=== PATIENT | male | born 1960 | race American Indian/Alaskan Native ===

== ENCOUNTER 2019-03-29 16:03 | Inpatient (IN) | payer OTHER ==
--- NOTE | 2019-03-29 16:41 | Emergency Department Report ---
Blank Doc - Documentation Documentation: This is a 59-year-old male that presents with SOB and bilateral leg swellings. Denies any CP. This initial assessment/diagnostic orders/clinical plan/treatment(s) is/are subject to change based on patient's health status, clinical progression and re- assessment by fellow clinical providers in the ED. Further treatment and workup at subsequent clinical providers discretion. Patient/guardians urged not to elope from the ED as their condition may be serious if not clinically assessed and managed. Initial orders include: 1- Patient sent to MAIN for further evaluation and treatment 2- labs 3- EKG 4- CXR
[2019-03-29] MEDS ORDERED: LASIX IV ONE (17:19)
[2019-03-29] MEDS ORDERED: ASPIRIN PO ONE (17:19)
--- NOTE | 2019-03-29 17:24 | Emergency Department Report ---
ED Shortness of Breath HPI - General Chief Complaint: Dyspnea/Respdistress Stated Complaint: ROMANA/SOB Time Seen by Provider: 03/29/19 16:40 Source: patient, EMS, RN notes reviewed, old records reviewed Mode of arrival: Wheelchair Limitations: No Limitations - History of Present Illness Initial Comments: 59-year-old male with a past medical history hypertension not on meds 1 year and "diet-controlled diabetes" presents to the hospital with complaints of shortness of breath intermittently for 90 days and worsening today. Patient also had progressing worsening leg, penile and scrotal edema. He denies chest pain, productive cough or fever. Occasional nonproductive cough reported. He complains 8/10 bilateral knee pain without reports of fall or trauma. He denies a past medical history of CHF. Denies smoking history. Pt drinks alcohol on occa PMD: None - Related Data Previous Rx's Medication Instructions Recorded Last Taken Type Erythromycin [Erythromycin Ophth 0.5 inch OS QID #1 tube 08/27/13 Unknown Rx Oint] Allergies Allergy/AdvReac Type Severity Reaction Status Date / Time No Known Allergies Allergy Verified 03/29/19 16:43 ED Review of Systems ROS: Stated complaint: ROMANA/SOB Other details as noted in HPI Comment: All other systems reviewed and negative ED Past Medical Hx - Past Medical History Previous Medical History?: Yes Hx Hypertension: Yes (no meds) Hx Congestive Heart Failure: Yes Hx Diabetes: Yes (diet-controlled) - Surgical History Past Surgical History?: Yes Additional Surgical History: Left thumb, hernia repair - Social History Smoking Status: Never Smoker Substance Use Type: Alcohol - Medications Home Medications: Home Medications Medication Instructions Recorded Confirmed Last Taken Type Erythromycin [Erythromycin Ophth 0.5 inch OS QID #1 tube 08/27/13 Unknown Rx Oint] ED Physical Exam - General Limitations: No Limitations - Other Other exam information: General: Moderate respiratory distress Head exam: Atraumatic, normocephalic Eyes exam: icteric sclera ENT: Moist mucous membrane Neck exam: Normal inspection Respiratory exam: Tachypnea, breathlessness when speaking, bilateral crackles Cardiovascular: Tachycardic regular rhythm, systolic murmur Abdomen: Soft, nondistended, and nontender, with normal bowel sounds, no rebound, or guarding Extremity: Full range of motion, significant bilateral pitting leg edema extending all the way up to the scrotum Back: Normal Inspection, full range of motion, no tenderness Neurologic: Alert, oriented x3, cranial nerves intact, no motor or sensory deficit Psychiatric: normal affect, normal mood Skin: Warm, dry, intact ED Course Vital Signs 03/29/19 03/29/19 03/29/19 16:41 17:38 18:00 Temperature 97.9 F Pulse Rate 129 H 119 H 117 H Respiratory 24 36 H 23 Rate Blood Pressure 206/128 174/24 Blood Pressure 175/126 [Right] O2 Sat by Pulse 97 100 99 Oximetry 03/29/19 18:50 Temperature Pulse Rate 121 H Respiratory 39 H Rate Blood Pressure 188/30 Blood Pressure [Right] O2 Sat by Pulse 99 Oximetry - Reevaluation(s) Reevaluation #1: 03/29/19 17:47 pt placed on bipap support and is breathing more comfortable - Consultations Consultation #1: 03/29/19 18:[address] Martini ordered Card consult with Dr Hsu requested 03/29/19 18:38 case d/w Dr Hsu, informed of + trop, no cp, no stemi on ekg, rec heparin drip ED Medical Decision Making - Lab Data Result diagrams: 03/29/19 16:56 03/29/19 16:56 - EKG Data -: EKG Interpreted by Me EKG shows normal: sinus rhythm (vs ectopic atrial tachycardia), axis (qrs -33), QRS complexes (qrsd 97), ST-T waves (no stemi) - EKG Data When compared to previous EKG there are: previous EKG unavailable - Radiology Data Radiology results: report reviewed - Medical Decision Making htn/new onset chf/med noncompliance bipap in ed for resp distress, normal room air o2 Lasix 60mg IV cardene drip for bp elevated trop normal renal fxt no stemi on ekg no cp asa provided cardiolgy consult anion gap metabolic acidosis Patient denies alcohol use ABG: shows a mixed respiratory alkalosis and metabolic acidosis, performed on 30% fio2 PCO2 is 28 (did not result in computer) Elevated LFTs AST greater than ALT with elevated bilirubin mild coag abnormality No complaints of abdominal pain patient denies alcohol abuse Questionable congestion from CHF as cause of elevated LFTs may need further workup - Differential Diagnosis HF, HTN emergency, PE, nephrotic syndrome, liver failure, renal failure Critical Care Time: Yes Critical care time in (mins) excluding proc time.: 35 Critical care attestation.: If time is entered above; I have spent that time in minutes in the direct care of this critically ill patient, excluding procedure time. ED Disposition Clinical Impression: Hypertensive emergency, New onset of congestive heart failure, Noncompliance with medication regimen, Elevated LFTs, High anion gap metabolic acidosis, Elevated troponin Disposition: OP ADMIT IP TO THIS HOSP Is pt being admited?: Yes Condition: Stable Time of Disposition: 18:26 (Dr Nash/hosp)
[2019-03-29 17:31] LABS: Basophils % (Auto) 0.3 % (0.0-1.8); Hematocrit 29.9 % (35.5-45.6); Lymphocytes # (Auto) 0.9 K/mm3 (1.2-5.4); Lymphocytes % (Auto) 10.4 % (13.4-35.0); Mean Corpuscular HGB Conc 30 % (32-34); Mean Corpuscular Volume 74 fl (84-94); Monocytes # (Auto) 0.7 K/mm3 (0.0-0.8); Monocytes % (Auto) 8.2 % (0.0-7.3); Platelet Count 332 K/mm3 (140-440); Red Blood Count 4.04 M/mm3 (3.65-5.03)
[2019-03-29 17:36] LABS: Red Cell Distribution Width 23.2 % (13.2-15.2)
[2019-03-29 17:41] LABS: INR 1.47 (0.87-1.13)
[2019-03-29 17:42] LABS: Partial Thromboplastin Time 30.8 Sec. (24.2-36.6)
[2019-03-29 18:10] LABS: Alanine Aminotransferase 12 units/L (7-56); Albumin 2.8 g/dL (3.9-5); BUN/Creatinine Ratio 10; Blood Urea Nitrogen 10 mg/dL (9-20); Calcium 8.3 mg/dL (8.4-10.2); Hemolysis Index 4
[2019-03-29 18:21] LABS: Chol/HDL Ratio 2.24 %; HDL Cholesterol 41 mg/dL (40-59); LDL Cholesterol,Direct 45 mg/dL (50-130)
--- NOTE | 2019-03-29 18:32 | XRay Report ---
PROCEDURE: XR CHEST 1V AP TECHNIQUE: Chest radiograph single view. HISTORY: sob COMPARISONS: None . FINDINGS: Heart: Normal. For technique Mediastinum/Vessels: Normal. Lungs/Pleural space: Normal. Bony thorax: No acute osseous abnormality. Life support devices: None. IMPRESSION: No acute cardiopulmonary abnormality. This document is electronically signed by Johnnie Olvera MD., March 29 2019 06:30:43 PM ET
[2019-03-29] MEDS ORDERED: HEPARIN 10,000 UNITS/10 ML IV ONE (18:36)
[2019-03-29] MEDS ORDERED: CARDIZEM IV ONE (18:45)
[2019-03-29] MEDS: CARDENE 50 MG in NACL 0.9% 250ML 230 ML IV SCH (18:56)
[2019-03-29] MEDS: HEPARIN/ 0.45% NACL-25,000 UNIT/500 ML 25,000 UNIT/500 ML BAG IV SCH (20:19)
[2019-03-29 21:08] LABS: Bilirubin,Urine NEG (Negative); Blood,Urine NEG (Negative); Color,Urine Yellow (Yellow); Hyaline Casts,Urine 12 /LPF; Mucus,Urine FEW /HPF
[2019-03-29] MEDS ORDERED: TYLENOL PO PRN ×2 (22:06→22:11)
[2019-03-29] MEDS ORDERED: SODIUM CHLORIDE FLUSH SYRINGE 10 ML IV PRN ×2 (22:06→22:11)
[2019-03-29] MEDS ORDERED: ZOFRAN IV PRN ×2 (22:06→22:11)
[2019-03-30] MEDS: NORVASC PO SCH ×2 (00:40→11:31)
[2019-03-30] MEDS: COREG PO SCH ×2 (00:41→10:07)
[2019-03-30] MEDS: K-DUR PO SCH ×2 (00:41→10:07)
[2019-03-30] MEDS ORDERED: HEPARIN 10,000 UNITS/10 ML IV ONE (03:31)
[2019-03-30] MEDS: PERCOCET 5/325 PO PRN (03:42)
[2019-03-30] MEDS: CARDENE 50 MG in NACL 0.9% 250ML 230 ML IV SCH (03:43)
[2019-03-30] MEDS: LASIX IV SCH ×2 (05:11→18:24)
[2019-03-30 05:18] LABS: Basophils # (Auto) 0.1 K/mm3 (0.0-0.1); Basophils % (Auto) 0.8 % (0.0-1.8); Eosinophils % (Auto) 0.5 % (0.0-4.3); Hematocrit 24.9 % (35.5-45.6); Lymphocytes # (Auto) 1.1 K/mm3 (1.2-5.4); Lymphocytes % (Auto) 16.6 % (13.4-35.0); Mean Corpuscular HGB Conc 32 % (32-34); Mean Corpuscular Volume 71 fl (84-94); Monocytes # (Auto) 0.6 K/mm3 (0.0-0.8); Monocytes % (Auto) 8.9 % (0.0-7.3); Platelet Count 276 K/mm3 (140-440); Red Blood Count 3.53 M/mm3 (3.65-5.03)
[2019-03-30 05:35] LABS: Red Cell Distribution Width 22.9 % (13.2-15.2)
[2019-03-30 05:46] LABS: Alanine Aminotransferase 11 units/L (7-56); Albumin 2.2 g/dL (3.9-5); BUN/Creatinine Ratio 10; Blood Urea Nitrogen 9 mg/dL (9-20); Hemolysis Index 0
--- NOTE | 2019-03-30 06:54 | History and Physical Report ---
History of Present Illness Date of examination: 03/29/19 Date of admission: 03/29/19 18:27 Chief complaint: Increasing SOB and Gen edema for 1 week History of present illness: 59-year-old male with a past medical history of hypertension not taking any antihypertensives comes in for increasing SOB and Increasing generalized edema including penile and scrotal edema.No chest pain.Orthopnea present. Has class IV NYHA symptoms.Also bilateral knee pain. Past Medical History Previous Medical History?: Yes Hx Hypertension: Yes (no meds) Hx Congestive Heart Failure: Yes Hx Diabetes: Yes (diet-controlled) Surgical History Past Surgical History?: Yes Additional Surgical History: Left thumb, hernia repair Social History Smoking Status: Never Smoker Substance Use Type: Alcohol Family History Hypertension Medications Home Medications: Home Medications Medication Instructions Recorded Confirmed Last Taken Type Erythromycin [Erythromycin Ophth 0.5 inch OS QID #1 tube 08/27/13 Unknown Rx Oint] Review of Systems ROS: Stated complaint: ROMANA/SOB Other details as noted in HPI Comment: All other systems reviewed and negative Medications and Allergies Allergies Allergy/AdvReac Type Severity Reaction Status Date / Time No Known Allergies Allergy Verified 03/29/19 16:43 Home Medications Medication Instructions Recorded Confirmed Last Taken Type Ibuprofen [Ibu-200] 400 mg PO PRN 03/30/19 Unknown History Active Meds: Active Medications Acetaminophen (Tylenol) 650 mg PO Q4H PRN PRN Reason: Pain MILD(1-3)/Fever >100.5/COSTA Amlodipine Besylate (Norvasc) 10 mg PO QDAY [facility] Last Admin: 03/30/19 00:40 Dose: 10 mg Documented by: Carvedilol (Coreg) 12.5 mg PO BID [facility] Last Admin: 03/30/19 00:41 Dose: 12.5 mg Documented by: Famotidine (Pepcid) 20 mg IV BID [facility] Furosemide (Lasix) 40 mg IV 0600,1800 [facility] Last Admin: 03/30/19 05:11 Dose: 40 mg Documented by: Hydromorphone HCl (Dilaudid) 0.5 mg IV Q3H PRN PRN Reason: Pain , Severe (7-10) Nicardipine HCl 50 mg/ Sodium (Chloride) 250 mls @ 25 mls/hr IV TITR [facility]; Protocol Last Titration: 03/30/19 05:19 Dose: 0 mg/hr, 0 mls/hr Documented by: Heparin Sodium/Sodium Chloride (Heparin/ 0.45% Nacl-25,000 Unit/500 Ml) 25,000 unit in 500 mls @ 20 mls/hr IV TITRATE [facility]; Protocol Last Titration: 03/30/19 03:34 Dose: 1,250 units/hr, 25 mls/hr Documented by: Losartan Potassium (Cozaar) 100 mg PO QDAY [facility] Ondansetron HCl (Zofran) 4 mg IV Q8H PRN PRN Reason: Nausea And Vomiting Oxycodone/Acetaminophen (Percocet 5/325) 1 tab PO Q6H PRN PRN Reason: Pain, Moderate (4-6) Last Admin: 03/30/19 03:42 Dose: 1 tab Documented by: Potassium Chloride (K-Dur) 20 meq PO Q12H [facility] Last Admin: 03/30/19 00:41 Dose: 20 meq Documented by: Sodium Chloride (Sodium Chloride Flush Syringe 10 Ml) 10 ml IV BID [facility] Sodium Chloride (Sodium Chloride Flush Syringe 10 Ml) 10 ml IV PRN PRN PRN Reason: LINE FLUSH Exam - Constitutional Vitals: Temp Pulse Resp BP Pulse Ox 97.7 F 85 22 91/58 100 03/30/19 03:49 03/30/19 06:01 03/30/19 06:01 03/30/19 06:01 03/30/19 06:01 General appearance: Present: no acute distress, mild distress, well-nourished - EENT Eyes: Present: PERRL ENT: hearing intact, clear oral mucosa - Neck Neck: Present: supple, normal ROM - Respiratory Respiratory effort: normal Respiratory: bilateral: CTA - Cardiovascular Heart rate: 78 Rhythm: regular Heart Sounds: Present: S1 & S2. Absent: rub, click - Extremities Extremities: no ischemia, pulses intact, pulses symmetrical, No edema Extremity abnormal: edema (4 plus) Peripheral Pulses: within normal limits - Abdominal General gastrointestinal: Present: soft, non-tender, non-distended, normal bowel sounds Male genitourinary: Present: normal - Rectal Rectal Exam: deferred - Integumentary Integumentary: Present: clear, warm, dry - Musculoskeletal Musculoskeletal: gait normal, strength equal bilaterally - Psychiatric Psychiatric: appropriate mood/affect, intact judgment & insight - Neurologic Neurologic: CNII-XII intact, moves all extremities - Allied Health Allied health notes reviewed: nursing, case management Results - Labs CBC & Chem 7: 03/30/19 04:43 03/30/19 04:43 Labs: Laboratory Last Values WBC 6.8 K/mm3 (4.5-11.0) 03/30/19 04:43 RBC 3.53 M/mm3 (3.65-5.03) L 03/30/19 04:43 Hgb 8.0 gm/dl (11.8-15.2) L 03/30/19 04:43 Hct 24.9 % (35.5-45.6) L 03/30/19 04:43 MCV 71 fl (84-94) L 03/30/19 04:43 MCH 23 pg (28-32) L 03/30/19 04:43 MCHC 32 % (32-34) 03/30/19 04:43 RDW 22.9 % (13.2-15.2) H 03/30/19 04:43 Plt Count 276 K/mm3 (140-440) 03/30/19 04:43 Lymph % (Auto) 16.6 % (13.4-35.0) 03/30/19 04:43 Terry % (Auto) 8.9 % (0.0-7.3) H 03/30/19 04:43 Eos % (Auto) 0.5 % (0.0-4.3) 03/30/19 04:43 Baso % (Auto) 0.8 % (0.0-1.8) 03/30/19 04:43 Lymph # 1.1 K/mm3 (1.2-5.4) L 03/30/19 04:43 Terry # 0.6 K/mm3 (0.0-0.8) 03/30/19 04:43 Eos # 0.0 K/mm3 (0.0-0.4) 03/30/19 04:43 Baso # 0.1 K/mm3 (0.0-0.1) 03/30/19 04:43 Seg Neutrophils % 73.2 % (40.0-70.0) H 03/30/19 04:43 Seg Neutrophils # 5.0 K/mm3 (1.8-7.7) 03/30/19 04:43 PT 18.8 Sec. (12.2-14.9) H 03/29/19 16:56 INR 1.47 (0.87-1.13) H 03/29/19 16:56 APTT 30.8 Sec. (24.2-36.6) 03/29/19 16:56 Heparin Anti-Xa Level < 0.10 U.I./ml (0.3-0.7) L 03/30/19 01:31 POC ABG pH 7.401 (7.35-7.45) 03/29/19 18:50 POC ABG pO2 103 (80-105) 03/29/19 18:50 POC ABG HCO3 17.4 (22-26 mml/L) 03/29/19 18:50 POC ABG Total CO2 18 (23-27mmol/L) 03/29/19 18:50 POC ABG O2 Sat 98 03/29/19 18:50 POC ABG Base Excess -7 ((-2) - (+3)mmol/L) 03/29/19 18:50 30 % 03/29/19 18:50 Sodium 145 mmol/L (137-145) 03/30/19 04:43 Potassium 3.5 mmol/L (3.6-5.0) L 03/30/19 04:43 Chloride 105.7 mmol/L (98-107) 03/30/19 04:43 Carbon Dioxide 27 mmol/L (22-30) D 03/30/19 04:43 16 mmol/L 03/30/19 04:43 BUN 9 mg/dL (9-20) 03/30/19 04:43 0.9 mg/dL (0.8-1.5) 03/30/19 04:43 Estimated GFR > 60 ml/min 03/30/19 04:43 10 % 03/30/19 04:43 Glucose 137 mg/dL (75-100) H 03/30/19 04:43 5.8 % (4-6) 03/29/19 22:45 Calcium 8.0 mg/dL (8.4-10.2) L 03/30/19 04:43 1.30 mg/dL (0.1-1.2) H 03/30/19 04:43 AST 33 units/L (5-40) 03/30/19 04:43 ALT 11 units/L (7-56) 03/30/19 04:43 93 units/L (35-129) 03/30/19 04:43 0.082 ng/mL (0.00-0.029) H D 03/29/19 19:39 NT-Pro-B Natriuret Pep 98591 pg/mL (0-900) H 03/29/19 16:56 5.8 g/dL (6.3-8.2) L D 03/30/19 04:43 2.2 g/dL (3.9-5) L 03/30/19 04:43 0.6 % 03/30/19 04:43 Triglycerides 61 mg/dL (2-149) 03/29/19 16:56 Cholesterol 92 mg/dL (50-199) 03/29/19 16:56 45 mg/dL (50-130) L 03/29/19 16:56 41 mg/dL (40-59) 03/29/19 16:56 2.24 % 03/29/19 16:56 Yellow (Yellow) 03/29/19 20:40 Slightly-cloudy (Clear) 03/29/19 20:40 5.0 (5.0-7.0) 03/29/19 20:40 Ur Specific Hope 1.014 (1.003-1.030) 03/29/19 20:40 100 mg/dl mg/dL (Negative) 03/29/19 20:40 Neg mg/dL (Negative) 03/29/19 20:40 Tr mg/dL (Negative) 03/29/19 20:40 Neg (Negative) 03/29/19 20:40 Neg (Negative) 03/29/19 20:40 Neg (Negative) 03/29/19 20:40 4.0 mg/dL (<2.0) 03/29/19 20:40 Ur Leukocyte Esterase Neg (Negative) 03/29/19 20:40 5.0 /HPF (0.0-6.0) 03/29/19 20:40 2.0 /HPF (0.0-6.0) 03/29/19 20:40 U Epithel Cells (Auto) 1.0 /HPF (0-13.0) 03/29/19 20:40 Hyaline Casts 12 /LPF 03/29/19 20:40 Few /HPF 03/29/19 20:40 - Imaging and Cardiology EKG: report reviewed Chest x-ray: report reviewed (NAF) Imaging and Cardiology: EKG Data EKG Interpreted by Me EKG shows normal: sinus rhythm (vs ectopic atrial tachycardia), axis (qrs -33), QRS complexes (qrsd 97), ST-T waves (no stemi) EKG Data When compared to previous EKG there are: previous EKG unavailable Assessment and Plan Assessment and plan: CCT 35 minutes Advance Directives: Yes (Full code) Plan of care discussed with patient/family: Yes - Patient Problems (1) Acute exacerbation of CHF (congestive heart failure) Current Visit: Yes Status: Acute Qualifiers: Heart failure type: diastolic Qualified Code(s): I50.33 - Acute on chronic diastolic (congestive) heart failure Plan to address problem: BNP high ECHO ordered Daily weigts and I/o's IV lasix q12 Cardiology consult (2) Elevated troponin Current Visit: Yes Status: Acute Plan to address problem: Trending the troponins will defer to cardiology reg stress test (3) Hypertensive emergency Current Visit: Yes Status: Acute Plan to address problem: Patient initiated on Losartan coreg and IV Hydralazine On IV cardene drip (4) Anasarca Current Visit: Yes Status: Chronic Plan to address problem: Multifactorial including CHF and Malnutrition Albumin very low (5) Malnutrition Current Visit: Yes Status: Acute Qualifiers: Malnutrition type: protein-calorie malnutrition Protein-calorie malnutrition severity: severe Qualified Code(s): E43 - Unspecified severe protein-calorie malnutrition Plan to address problem: Dietitian consultt requested (6) Anemia Current Visit: Yes Status: Chronic Qualifiers: Anemia type: unspecified type Qualified Code(s): D64.9 - Anemia, unspecified Plan to address problem: Anemia workup (7) DVT prophylaxis Current Visit: Yes Status: Acute Plan to address problem: On Lovenox and GI prophylaxis
--- NOTE | 2019-03-30 07:51 | Consultation ---
History of Present Illness Consult date: 03/30/19 Requesting physician: EVA BREAUX Reason for consult: other (NSTEMI, Hypertensive emergency) History of present illness: The pt is a 59-year-old male with a past medical history of hypertension (not on meds 1 year), diabetes (sometimes takes Metformin and insulin at home), ETOH use (drinks whiskey 2-3 days per week). He presented with c/o progressively worsening SOB, IVERSON, BLE swelling into the thighs, penile and scrotal swelling for the past 2 months. He also reports some intermittent, nonexertional, nonradiating, left-sided, stabbing chest pain which is sometimes aggravated by coughing. Pt denies any palpitations, n/v, diaphoresis, dizziness or syncope. He denies any known cardiac issues, including CAD, AMI, HF or arrhythmia. Following arrival, pt found to have hypertensive emergency and was initiated on cardene infusion. Pt also found to have acute heart failure, acute respiratory failure requiring B iPAP, and elevated Paulo for which he was initiated on a heparin infusion and admitted to the ICU. I was consulted for critical care management. Patient was seen and examined. Vitals, labs, medications, chart and imaging were reviewed. On evaluation, patient states he is feeling better. He has been weaned off cardene infusion. He is on a Venturi mask at 35%, and oxygen saturations are 100%. He currently denies any chest pain, no shortness of breath, no fevers or chills. He denies any abdominal pain. Past Medical History Previous Medical History?: Yes Hx Hypertension: Yes (no meds) Hx Congestive Heart Failure: Yes Hx Diabetes: Yes (diet-controlled) Surgical History Past Surgical History?: Yes Additional Surgical History: Left thumb, hernia repair Social History Smoking Status: Never Smoker Substance Use Type: Alcohol Family History Hypertension Medications and Allergies Allergies Allergy/AdvReac Type Severity Reaction Status Date / Time No Known Allergies Allergy Verified 03/29/19 16:43 Home Medications Medication Instructions Recorded Confirmed Last Taken Type Ibuprofen [Ibu-200] 400 mg PO PRN PRN 03/30/19 03/30/19 Unknown History Active Meds: Active Medications Acetaminophen (Tylenol) 650 mg PO Q4H PRN PRN Reason: Pain MILD(1-3)/Fever >100.5/[place]STA Amlodipine Besylate (Norvasc) 10 mg PO QDAY [facility] Last Admin: 03/30/19 00:40 Dose: 10 mg Documented by: Carvedilol (Coreg) 12.5 mg PO BID [facility] Last Admin: 03/30/19 00:41 Dose: 12.5 mg Documented by: Famotidine (Pepcid) 20 mg IV BID [facility] Furosemide (Lasix) 40 mg IV 0600,1800 [facility] Last Admin: 03/30/19 05:11 Dose: 40 mg Documented by: Hydromorphone HCl (Dilaudid) 0.5 mg IV Q3H PRN PRN Reason: Pain , Severe (7-10) Nicardipine HCl 50 mg/ Sodium (Chloride) 250 mls @ 25 mls/hr IV TITR [facility]; Protocol Last Titration: 03/30/19 05:19 Dose: 0 mg/hr, 0 mls/hr Documented by: Heparin Sodium/Sodium Chloride (Heparin/ 0.45% Nacl-25,000 Unit/500 Ml) 25,000 unit in 500 mls @ 20 mls/hr IV TITRATE [facility]; Protocol Last Titration: 03/30/19 03:34 Dose: 1,250 units/hr, 25 mls/hr Documented by: Losartan Potassium (Cozaar) 100 mg PO QDAY [facility] Ondansetron HCl (Zofran) 4 mg IV Q8H PRN PRN Reason: Nausea And Vomiting Oxycodone/Acetaminophen (Percocet 5/325) 1 tab PO Q6H PRN PRN Reason: Pain, Moderate (4-6) Last Admin: 03/30/19 03:42 Dose: 1 tab Documented by: Potassium Chloride (K-Dur) 20 meq PO Q12H [facility] Last Admin: 03/30/19 00:41 Dose: 20 meq Documented by: Sodium Chloride (Sodium Chloride Flush Syringe 10 Ml) 10 ml IV BID [facility] Sodium Chloride (Sodium Chloride Flush Syringe 10 Ml) 10 ml IV PRN PRN PRN Reason: LINE FLUSH Review of Systems Constitutional: no weight loss, no weight gain, no chills, no sweats, no night sweats Cardiovascular: chest pain, edema, shortness of breath, no palpitations, no rapid/irregular heart beat, no lightheadedness Respiratory: shortness of breath, no cough, no cough with sputum, no hemoptysis Gastrointestinal: no abdominal pain, no nausea, no vomiting, no diarrhea, no constipation, no change in bowel habits Genitourinary Male: no dysuria, no discharge, no urinary frequency, no urinary hesitancy, no nocturia Rectal: no pain Musculoskeletal: no neck stiffness, no neck pain, no arm numbness/tingling, no low back pain, no shooting leg pain Neurological: no head injury, no paralysis, no weakness, no parathesias, no seizures, no syncope, no tremors Endocrine: no excessive thirst, no polydipsia, no polyuria, no nocturia, no weight change Physical Examination Vital signs: Vital Signs Temp Pulse Resp BP Pulse Ox 97.9 F 129 H 24 206/128 97 03/29/19 16:41 03/29/19 16:41 03/29/19 16:41 03/29/19 16:41 03/29/19 16:41 GENERAL: well-developed and well-nourished -Citizen Of [place] male lying on bed appeared to be in no discomfort. HEENT: Normocephalic. Atraumatic. No conjunctival congestion or icterus. Patient has moist mucous membranes. NECK: Supple. Trachea midline. CHEST/LUNGS: Coarse breath sounds auscultated bilaterally, breathing nonlabored. No wheezes HEART/CARDIOVASCULAR: Regular in rate and rhythm. S1 and S2 positive. ABDOMEN: Abdomen is soft, nontender. Patient has normal bowel sounds. SKIN: There is no rash. Warm and dry. NEURO: No focal motor deficit. Follows command. MUSCULOSKELETAL: No joint effusion or tenderness. EXTRIMITY: No edema, no cyanosis or clubbing. PSYCH: Cooperative. Results - Laboratory Findings CBC and BMP: 03/31/19 03:53 04/01/19 05:49 ABG POC ABG pH 7.401 (7.35-7.45) 03/29/19 18:50 POC ABG pO2 103 (80-105) 03/29/19 18:50 POC ABG HCO3 17.4 (22-26 mml/L) 03/29/19 18:50 POC ABG Total CO2 18 (23-27mmol/L) 03/29/19 18:50 POC ABG O2 Sat 98 03/29/19 18:50 PT/INR, D-dimer PT 18.8 Sec. (12.2-14.9) H 03/29/19 16:56 INR 1.47 (0.87-1.13) H 03/29/19 16:56 Abnormal lab findings: Abnormal Labs 03/29/19 03/29/19 03/29/19 16:56 16:56 16:56 RBC Hgb 9.0 L Hct 29.9 L MCV 74 L MCH 22 L MCHC 30 L RDW 23.2 H Lymph % (Auto) 10.4 L [place] % (Auto) 8.2 H Lymph # 0.9 L Seg Neutrophils % 81.1 H PT 18.8 H INR 1.47 H Heparin Anti-Xa Level Potassium Carbon Dioxide 14 L Glucose Calcium 8.3 L Total Bilirubin 2.00 H AST 43 H Troponin T 0.064 H NT-Pro-B Natriuret Pep Total Protein Albumin 2.8 L LDL Cholesterol Direct 45 L 03/29/19 03/29/19 03/30/19 16:56 19:39 01:31 RBC Hgb Hct MCV MCH MCHC RDW Lymph % (Auto) [place] % (Auto) Lymph # Seg Neutrophils % PT INR Heparin Anti-Xa Level < 0.10 L Potassium Carbon Dioxide Glucose Calcium Total Bilirubin AST Troponin T 0.082 H D NT-Pro-B Natriuret Pep 22024 H Total Protein Albumin LDL Cholesterol Direct 03/30/19 03/30/19 04:43 04:43 RBC 3.53 L Hgb 8.0 L Hct 24.9 L MCV 71 L MCH 23 L MCHC RDW 22.9 H Lymph % (Auto) [place] % (Auto) 8.9 H Lymph # 1.1 L Seg Neutrophils % 73.2 H PT INR Heparin Anti-Xa Level Potassium 3.5 L Carbon Dioxide Glucose 137 H Calcium 8.0 L Total Bilirubin 1.30 H AST Troponin T NT-Pro-B Natriuret Pep Total Protein 5.8 L D Albumin 2.2 L LDL Cholesterol Direct - Diagnostic Findings Chest x-ray: image reviewed (Carddiomegaly, bilateral alveolar infiltrates with right pleural effusion) Assessment and Plan Acute hypoxemic respiratory failure Acute exacerbation of CHF (congestive heart failure) Elevated BNP NSTEMI likely type II Hypertensive emergency h/o Diabetes mellitus -Continue to wean supplemental oxygen fro O2 sats>90% -Continue heparin infusion -Blood pressure control, initiate oral therapies -Follow up CXR in 48 hours -Gentle diuresis as tolerated by renal function and hemodynamics -Monitor electrolyte panel and replete as indicated -VTE prophylaxis( anticoagulated at this time) -Follow up results of transthoracic echocardiogram -OOB to chair -Accucheck with glycemic control -Life style modifications -Heart failure measures -Discussed the need for medical compliance/adherence and the negative consequences of non-adherence -Cardiology consult Stable for transfer to telemetry
[2019-03-30 08:04] LABS: % Iron Saturation 7.88 %
--- NOTE | 2019-03-30 09:33 | Consultation ---
History of Present Illness Consult date: 03/30/19 Requesting physician: ISIDORO PEREZ Consult reason: congestive heart failure, elevated troponin History of present illness: The pt is a 59-year-old male with a past medical history of hypertension (not on meds 1 year), diabetes (sometimes takes Metformin and insulin at home), ETOH use (drinks whiskey 2-3 days per week). He is previously unknown to our practice. He presented with c/o progressively worsening SOB, IVERSON, BLE swelling into the thighs, penile and scrotal swelling for the past 2 months. He also reports some intermittent, nonexertional, nonradiating, left-sided, stabbing chest pain which is sometimes aggravated by coughing. Pt denies any palpitations, n/v, diaphoresis, dizziness or syncope. He denies any known cardiac issues, including CAD, AMI, HF or arrhythmia. He does not regularly see doctors. Following arrival, pt found to have hypertensive emergency and was initiated on cardene gtt. Pt also found to have acute heart failure, acute respiratory failure requiring BiPAP, and elevated Paulo for which he was initiated on a heparin gtt. On evaluation, pt states he is feeling better. He has been we aned off cardene gtt. Past History Past Medical History: diabetes, hypertension Past Surgical History: hernia repair Social history: alcohol abuse. denies: smoking, prescription drug abuse Medications and Allergies Allergies Allergy/AdvReac Type Severity Reaction Status Date / Time No Known Allergies Allergy Verified 03/29/19 16:43 Home Medications Medication Instructions Recorded Confirmed Last Taken Type Ibuprofen [Ibu-200] 400 mg PO PRN 03/30/19 Unknown History Active Meds: Active Medications Acetaminophen (Tylenol) 650 mg PO Q4H PRN PRN Reason: Pain MILD(1-3)/Fever >100.5/COSTA Amlodipine Besylate (Norvasc) 10 mg PO QDAY [facility] Last Admin: 03/30/19 00:40 Dose: 10 mg Documented by: Carvedilol (Coreg) 12.5 mg PO BID [facility] Last Admin: 03/30/19 00:41 Dose: 12.5 mg Documented by: Famotidine (Pepcid) 20 mg IV BID [facility] Furosemide (Lasix) 40 mg IV 0600,1800 [facility] Last Admin: 03/30/19 05:11 Dose: 40 mg Documented by: Hydromorphone HCl (Dilaudid) 0.5 mg IV Q3H PRN PRN Reason: Pain , Severe (7-10) Nicardipine HCl 50 mg/ Sodium (Chloride) 250 mls @ 25 mls/hr IV TITR LARRY; Protocol Last Titration: 03/30/19 05:19 Dose: 0 mg/hr, 0 mls/hr Documented by: Heparin Sodium/Sodium Chloride (Heparin/ 0.45% Nacl-25,000 Unit/500 Ml) 25,000 unit in 500 mls @ 20 mls/hr IV TITRATE LARRY; Protocol Last Titration: 03/30/19 03:34 Dose: 1,250 units/hr, 25 mls/hr Documented by: Losartan Potassium (Cozaar) 100 mg PO QDAY LARRY Ondansetron HCl (Zofran) 4 mg IV Q8H PRN PRN Reason: Nausea And Vomiting Oxycodone/Acetaminophen (Percocet 5/325) 1 tab PO Q6H PRN PRN Reason: Pain, Moderate (4-6) Last Admin: 03/30/19 03:42 Dose: 1 tab Documented by: Potassium Chloride (K-Dur) 20 meq PO Q12H LARRY Last Admin: 03/30/19 00:41 Dose: 20 meq Documented by: Sodium Chloride (Sodium Chloride Flush Syringe 10 Ml) 10 ml IV BID LARRY Sodium Chloride (Sodium Chloride Flush Syringe 10 Ml) 10 ml IV PRN PRN PRN Reason: LINE FLUSH Review of Systems Constitutional: no fever, no chills, no sweats Ears, nose, mouth and throat: no ear pain, no nose pain, no sinus pressure, no sinus pain Cardiovascular: chest pain, edema, shortness of breath, dyspnea on exertion, paroxysmal nocturnal dyspnea, high blood pressure, leg edema, decreased exercise tolerance, no orthopnea, no palpitations, no rapid/irregular heart beat, no syncope, no lightheadedness Respiratory: shortness of breath, dyspnea on exertion, no cough, no congestion, no wheezing Gastrointestinal: no abdominal pain, no nausea, no vomiting, no diarrhea, no constipation, no change in bowel habits Genitourinary Male: other (penile and scrotal edema), no dysuria, no hematuria, no flank pain, no discharge, no urinary frequency, no urinary hesitancy Musculoskeletal: no neck stiffness, no neck pain, no shooting arm pain, no arm numbness/tingling, no low back pain, no shooting leg pain Integumentary: no rash, no pruritis, no redness, no sores, no wounds Neurological: no head injury, no paralysis, no weakness, no parathesias, no numbness, no tingling, no seizures, no syncope Psychiatric: no anxiety Endocrine: no cold intolerance, no heat intolerance Hematologic/Lymphatic: no easy bruising, no easy bleeding Allergic/Immunologic: no urticaria, no wheezing Physical Examination Vital Signs Temp Pulse Resp BP Pulse Ox 97.9 F 129 H 24 206/128 97 03/29/19 16:41 03/29/19 16:41 03/29/19 16:41 03/29/19 16:41 03/29/19 16:41 General appearance: no acute distress HEENT: Positive: PERRL, Normocephaly, Mucus Membranes Moist Neck: Positive: neck supple, trachea midline Cardiac: Positive: Reg Rate and Rhythm, S1/S2, S3 Lungs: Positive: Decreased Breath Sounds Neuro: Positive: Grossly Intact Abdomen: Negative: Ascites Male genitourinary: Positive: penile edema, scrotal edema Skin: Positive: Other (chronic skin changes noted in BLE). Negative: Rash Musculoskeletal: No Pain Extremities: Present: +2 Edema (BLE pitting) Results 03/30/19 04:43 03/30/19 04:43 Cardiac Enzymes 03/29/19 03/30/19 Range/Units 16:56 04:43 AST 43 H 33 (5-40) units/L Coagulation 03/29/19 Range/Units 16:56 PT 18.8 H (12.2-14.9) Sec. INR 1.47 H (0.87-1.13) APTT 30.8 (24.2-36.6) Sec. Lipids 03/29/19 Range/Units 16:56 Triglycerides 61 (2-149) mg/dL Cholesterol 92 (50-199) mg/dL HDL Cholesterol 41 (40-59) mg/dL Cholesterol/HDL Ratio 2.24 % CBC 03/29/19 03/30/19 Range/Units 16:56 04:43 WBC 8.3 6.8 (4.5-11.0) K/mm3 RBC 4.04 3.53 L (3.65-5.03) M/mm3 Hgb 9.0 L 8.0 L (11.8-15.2) gm/dl Hct 29.9 L 24.9 L (35.5-45.6) % Plt Count 332 276 (140-440) K/mm3 Lymph # 0.9 L 1.1 L (1.2-5.4) K/mm3 Grand # 0.7 0.6 (0.0-0.8) K/mm3 Eos # 0.0 0.0 (0.0-0.4) K/mm3 Baso # 0.0 0.1 (0.0-0.1) K/mm3 Comprehensive Metabolic Panel 03/29/19 03/30/19 Range/Units 16:56 04:43 Sodium 143 145 (137-145) mmol/L Potassium 3.8 3.5 L (3.6-5.0) mmol/L Chloride 102.7 105.7 (98-107) mmol/L Carbon Dioxide 14 L 27 D (22-30) mmol/L BUN 10 9 (9-20) mg/dL Creatinine 1.0 0.9 (0.8-1.5) mg/dL Glucose 77 137 H (75-100) mg/dL Calcium 8.3 L 8.0 L (8.4-10.2) mg/dL AST 43 H 33 (5-40) units/L ALT 12 11 (7-56) units/L Alkaline Phosphatase 127 93 (35-129) units/L Total Protein 7.7 5.8 L D (6.3-8.2) g/dL Albumin 2.8 L 2.2 L (3.9-5) g/dL - Imaging and Cardiology Echo: pending EKG: report reviewed, image reviewed EKG interpretations - Telemetry EKG Rhythm: Sinus Rhythm - EKG Sinus rhythms and dysrhythmias: sinus rhythm Assessment and Plan Agree with current cardiac regimen. Cont GDMT and IV diuresis as tolerated, pt currently weaned off cardene gtt and may tx to telemetry from cardiology standpoint. Await echo. Troponin elevation appears c/w NSTEMI type II at this time, no current chest pain, ECG with no acute ischemic changes. Cont to trend Paulo and repeat ECG in AM. Further recs to follow per hospital course. The patient has been seen in conjunction with Dr. Juárez who agrees with the assessment and plan of care. - Patient Problems (1) Acute heart failure Current Visit: Yes Status: Acute (2) Acute respiratory failure Current Visit: Yes Status: Acute (3) Hypertensive emergency Current Visit: Yes Status: Acute (4) Atypical chest pain Current Visit: Yes Status: Acute (5) NSTEMI (non-ST elevated myocardial infarction) Current Visit: Yes Status: Acute Plan to address problem: suspect type II (6) Anemia Current Visit: Yes Status: Chronic Qualifiers: Anemia type: unspecified type Qualified Code(s): D64.9 - Anemia, uns pecified (7) Diabetes Current Visit: Yes Status: Chronic (8) Noncompliance with medication regimen Current Visit: Yes Status: Chronic
[2019-03-30] MEDS ORDERED: SODIUM CHLORIDE FLUSH SYRINGE 10 ML IV SCH (10:00)
[2019-03-30] MEDS: SODIUM CHLORIDE FLUSH SYRINGE 10 ML IV SCH (10:07)
[2019-03-30] MEDS: PEPCID IV SCH (10:07)
[2019-03-30] MEDS: ASPIRIN PO SCH (11:03)
[2019-03-30] MEDS: COZAAR PO SCH (11:29)
--- NOTE | 2019-03-30 15:25 | Progress Note ---
Assessment and Plan /Acute exacerbation of CHF (congestive heart failure) BNP high ECHO ordered Daily weigts and I/o's IV lasix q12 Cardiology consult /NSTEMI likely type II IV Heparin drip started, we'll follow cardiology recommendation /Hypertensive emergency Patient initiated on Losartan coreg and IV Hydralazine s/p IV cardene drip / Anasarca Multifactorial including CHF and Malnutrition Albumin very low / Malnutrition, severe Dietitian consultt requested / Anemia Anemia workup ordered / DVT prophylaxis On heparin drip Brief History: 59-year-old male with a past medical history of hypertension not taking any antihypertensives comes in for increasing SOB and Increasing generalized edema including penile and scrotal edema. He also noted to have elevated troponin. Radiological data: Chest x-ray: No acute infiltrates Hospitalist Physical exam: GENERAL: well-developed and well-nourished -[place] male lying on bed appeared to be in no discomfort. HEENT: Normocephalic. Atraumatic. No conjunctival congestion or icterus. Patient has moist mucous membranes. NECK: Supple. Trachea midline. CHEST/LUNGS: Coarse breath sounds auscultated bilaterally, breathing nonlabored. No wheezes HEART/CARDIOVASCULAR: Regular in rate and rhythm. S1 and S2 positive. ABDOMEN: Abdomen is soft, nontender. Patient has normal bowel sounds. SKIN: There is no rash. Warm and dry. NEURO: No focal motor deficit. Follows command. MUSCULOSKELETAL: No joint effusion or tenderness. EXTRIMITY: No edema, no cyanosis or clubbing. PSYCH: Cooperative. Subjective Date of service: 03/30/19 Interval history: Patient seen and examined. Medical records and medication list reviewed. No acute event overnight noted by the RN. Patient denies any chest pain but continued to complain of difficulty breathing on exertion. Patient is tolerating diet. Discussed plan of care at bedside with patient. Objective - Constitutional Vitals: Vital Signs - 12hr 03/30/19 03/30/19 03/30/19 03:30 03:42 03:49 Temperature 97.7 F Pulse Rate 99 H Pulse Rate [ From Monitor] Respiratory 24 18 Rate Blood Pressure 109/74 O2 Sat by Pulse 100 Oximetry 03/30/19 03/30/19 03/30/19 04:00 04:01 04:30 Temperature Pulse Rate 93 H 93 H Pulse Rate [ 93 H From Monitor] Respiratory 24 24 48 H Rate Blood Pressure 109/45 104/56 O2 Sat by Pulse 100 100 100 Oximetry 03/30/19 03/30/19 03/30/19 05:00 05:31 06:01 Temperature Pulse Rate 88 89 85 Pulse Rate [ From Monitor] Respiratory 23 19 22 Rate Blood Pressure 96/60 96/60 91/58 O2 Sat by Pulse 100 99 100 Oximetry 03/30/19 03/30/19 03/30/19 06:30 07:00 07:31 Temperature Pulse Rate 83 90 94 H Pulse Rate [ From Monitor] Respiratory 18 18 10 L Rate Blood Pressure 99/62 103/64 103/64 O2 Sat by Pulse 100 100 86 Oximetry 03/30/19 03/30/19 03/30/19 08:00 08:30 08:50 Temperature 97.4 F L Pulse Rate 87 90 Pulse Rate [ 91 H From Monitor] Respiratory 18 22 Rate Blood Pressure 101/68 109/70 O2 Sat by Pulse 100 97 100 Oximetry 03/30/19 03/30/19 03/30/19 09:01 09:30 10:00 Temperature Pulse Rate 92 H 92 H 89 Pulse Rate [ From Monitor] Respiratory 18 18 22 Rate Blood Pressure 109/70 100/65 106/60 O2 Sat by Pulse 98 95 97 Oximetry 03/30/19 03/30/19 03/30/19 10:07 10:31 11:00 Temperature Pulse Rate 88 93 H 87 Pulse Rate [ From Monitor] Respiratory 22 20 Rate Blood Pressure 106/60 100/65 107/70 O2 Sat by Pulse 94 98 Oximetry 03/30/19 03/30/19 03/30/19 11:29 11:30 11:31 Temperature Pulse Rate 92 H 84 92 H Pulse Rate [ From Monitor] Respiratory 22 Rate Blood Pressure 106/60 108/68 106/60 O2 Sat by Pulse 100 Oximetry 03/30/19 03/30/19 03/30/19 12:00 12:31 13:01 Temperature 97.2 F L Pulse Rate 81 90 79 Pulse Rate [ 79 From Monitor] Respiratory 19 14 20 Rate Blood Pressure 108/70 108/70 107/67 O2 Sat by Pulse 98 94 94 Oximetry 03/30/19 03/30/19 03/30/19 13:31 14:01 14:30 Temperature Pulse Rate 87 79 88 Pulse Rate [ From Monitor] Respiratory 20 26 H 17 Rate Blood Pressure 106/71 107/67 97/63 O2 Sat by Pulse 95 92 99 Oximetry 03/30/19 15:00 Temperature Pulse Rate 88 Pulse Rate [ From Monitor] Respiratory 21 Rate Blood Pressure 96/58 O2 Sat by Pulse 97 Oximetry - Labs CBC & Chem 7: 03/31/19 03:53 03/31/19 03:53 Labs: Abnormal lab results 03/29/19 03/29/19 03/29/19 Range/Units 16:56 16:56 16:56 RBC (3.65-5.03) M/mm3 Hgb 9.0 L (11.8-15.2) gm/dl Hct 29.9 L (35.5-45.6) % MCV 74 L (84-94) fl MCH 22 L (28-32) pg MCHC 30 L (32-34) % RDW 23.2 H (13.2-15.2) % Lymph % (Auto) 10.4 L (13.4-35.0) % [place] % (Auto) 8.2 H (0.0-7.3) % Lymph # 0.9 L (1.2-5.4) K/mm3 Seg Neutrophils % 81.1 H (40.0-70.0) % PT 18.8 H (12.2-14.9) Sec. INR 1.47 H (0.87-1.13) Heparin Anti-Xa Level (0.3-0.7) U.I./ml Potassium (3.6-5.0) mmol/L Carbon Dioxide 14 L (22-30) mmol/L Glucose (75-100) mg/dL Calcium 8.3 L (8.4-10.2) mg/dL Iron (49-181) ug/dL TIBC (250-450) mcg/dL Transferrin (180-329) mg/dl Total Bilirubin 2.00 H (0.1-1.2) mg/dL AST 43 H (5-40) units/L Troponin T 0.064 H (0.00-0.029) ng/mL NT-Pro-B Natriuret Pep (0-900) pg/mL Total Protein (6.3-8.2) g/dL Albumin 2.8 L (3.9-5) g/dL LDL Cholesterol Direct 45 L (50-130) mg/dL 03/29/19 03/29/19 03/30/19 Range/Units 16:56 19:39 01:31 RBC (3.65-5.03) M/mm3 Hgb (11.8-15.2) gm/dl Hct (35.5-45.6) % MCV (84-94) fl MCH (28-32) pg MCHC (32-34) % RDW (13.2-15.2) % Lymph % (Auto) (13.4-35.0) % [place] % (Auto) (0.0-7.3) % Lymph # (1.2-5.4) K/mm3 Seg Neutrophils % (40.0-70.0) % PT (12.2-14.9) Sec. INR (0.87-1.13) Heparin Anti-Xa Level < 0.10 L (0.3-0.7) U.I./ml Potassium (3.6-5.0) mmol/L Carbon Dioxide (22-30) mmol/L Glucose (75-100) mg/dL Calcium (8.4-10.2) mg/dL Iron (49-181) ug/dL TIBC (250-450) mcg/dL Transferrin (180-329) mg/dl Total Bilirubin (0.1-1.2) mg/dL AST (5-40) units/L Troponin T 0.082 H D (0.00-0.029) ng/mL NT-Pro-B Natriuret Pep 31961 H (0-900) pg/mL Total Protein (6.3-8.2) g/dL Albumin (3.9-5) g/dL LDL Cholesterol Direct (50-130) mg/dL 03/30/19 03/30/19 03/30/19 Range/Units 04:43 04:43 07:20 RBC 3.53 L (3.65-5.03) M/mm3 Hgb 8.0 L (11.8-15.2) gm/dl Hct 24.9 L (35.5-45.6) % MCV 71 L (84-94) fl MCH 23 L (28-32) pg MCHC (32-34) % RDW 22.9 H (13.2-15.2) % Lymph % (Auto) (13.4-35.0) % [place] % (Auto) 8.9 H (0.0-7.3) % Lymph # 1.1 L (1.2-5.4) K/mm3 Seg Neutrophils % 73.2 H (40.0-70.0) % PT (12.2-14.9) Sec. INR (0.87-1.13) Heparin Anti-Xa Level (0.3-0.7) U.I./ml Potassium 3.5 L (3.6-5.0) mmol/L Carbon Dioxide (22-30) mmol/L Glucose 137 H (75-100) mg/dL Calcium 8.0 L (8.4-10.2) mg/dL Iron 16 L (49-181) ug/dL TIBC 203 L (250-450) mcg/dL Transferrin 178 L (180-329) mg/dl Total Bilirubin 1.30 H (0.1-1.2) mg/dL AST (5-40) units/L Troponin T (0.00-0.029) ng/mL NT-Pro-B Natriuret Pep (0-900) pg/mL Total Protein 5.8 L D (6.3-8.2) g/dL Albumin 2.2 L (3.9-5) g/dL LDL Cholesterol Direct (50-130) mg/dL 03/30/19 03/30/19 03/30/19 Range/Units 07:30 09:59 13:25 RBC (3.65-5.03) M/mm3 Hgb (11.8-15.2) gm/dl Hct (35.5-45.6) % MCV (84-94) fl MCH (28-32) pg MCHC (32-34) % RDW (13.2-15.2) % Lymph % (Auto) (13.4-35.0) % [place] % (Auto) (0.0-7.3) % Lymph # (1.2-5.4) K/mm3 Seg Neutrophils % (40.0-70.0) % PT (12.2-14.9) Sec. INR (0.87-1.13) Heparin Anti-Xa Level 0.17 L (0.3-0.7) U.I./ml Potassium (3.6-5.0) mmol/L Carbon Dioxide (22-30) mmol/L Glucose (75-100) mg/dL Calcium (8.4-10.2) mg/dL Iron (49-181) ug/dL TIBC (250-450) mcg/dL Transferrin (180-329) mg/dl Total Bilirubin (0.1-1.2) mg/dL AST (5-40) units/L Troponin T 0.112 H* D 0.093 H (0.00-0.029) ng/mL NT-Pro-B Natriuret Pep (0-900) pg/mL Total Protein (6.3-8.2) g/dL Albumin (3.9-5) g/dL LDL Cholesterol Direct (50-130) mg/dL
[2019-03-30] MEDS: HEPARIN/ 0.45% NACL-25,000 UNIT/500 ML 25,000 UNIT/500 ML BAG IV SCH (16:03)
[2019-03-30] MEDS ORDERED: LOVENOX SUB-Q SCH (22:00)
[2019-03-31] MEDS: SODIUM CHLORIDE FLUSH SYRINGE 10 ML IV SCH ×2 (01:22→09:32)
[2019-03-31] MEDS: PEPCID IV SCH ×2 (01:22→09:31)
[2019-03-31] MEDS: COREG PO SCH ×3 (01:22→21:55)
[2019-03-31] MEDS: K-DUR PO SCH ×3 (01:22→22:00)
[2019-03-31 04:27] LABS: Hemoglobin 8.7 gm/dl (11.8-15.2)
[2019-03-31 04:28] LABS: Hematocrit 27.2 % (35.5-45.6)
[2019-03-31 04:53] LABS: BUN/Creatinine Ratio 8; Blood Urea Nitrogen 8 mg/dL (9-20); Calcium 7.5 mg/dL (8.4-10.2); Hemolysis Index 12
[2019-03-31] MEDS: LASIX IV SCH ×2 (05:48→18:19)
[2019-03-31] MEDS: PERCOCET 5/325 PO PRN ×3 (05:58→21:55)
[2019-03-31] MEDS: DILAUDID IV PRN ×4 (09:05→18:19)
[2019-03-31] MEDS: ASPIRIN PO SCH (09:31)
[2019-03-31] MEDS: NORVASC PO SCH (09:31)
[2019-03-31] MEDS: COZAAR PO SCH (09:31)
[2019-03-31] MEDS: HEPARIN/ 0.45% NACL-25,000 UNIT/500 ML 25,000 UNIT/500 ML BAG IV SCH (09:40)
--- NOTE | 2019-03-31 11:47 | Progress Note ---
Assessment and Plan Echo reviewed - EF 45-50%, mod LVH, impaired relaxation, RA mild to mod dilated, small patent PFO, RVSP 30mmHg, mild CO. Cont GDMT and IV diuresis as tolerated. Troponin elevation appears c/w NSTEMI type II at this time, Paulo trending downwards, no current chest pain, ECG with no acute ischemic changes. D/c heparin gtt. Will plan for lexiscan MPI stress test in AM for risk stratification. NPO after MN. The patient has been seen in conjunction with Dr. Juárez who agrees with the assessment and plan of care. - Patient Problems (1) Acute HFrEF (heart failure with reduced ejection fraction) Current Visit: Yes Status: Acute (2) Acute respiratory failure Current Visit: Yes Status: Acute (3) Hypertensive emergency Current Visit: Yes Status: Acute (4) Atypical chest pain Current Visit: Yes Status: Acute (5) NSTEMI (non-ST elevated myocardial infarction) Current Visit: Yes Status: Acute (6) Anemia Current Visit: Yes Status: Chronic Qualifiers: Anemia type: unspecified type Qualified Code(s): D64.9 - Anemia, unspecified (7) Diabetes Current Visit: Yes Status: Chronic (8) Noncompliance with medication regimen Current Visit: Yes Status: Chronic Subjective Date of service: 03/31/19 Principal diagnosis: HF Interval history: pt resting in bed, states he is feeling better today. in SR. Objective Last Vital Signs Temp 98.3 F 03/31/19 08:09 Pulse 83 03/31/19 08:09 Resp 16 03/31/19 08:09 BP 112/73 03/31/19 08:09 Pulse Ox 97 03/31/19 10:00 - Physical Examination General: No Apparent Distress HEENT: Positive: PERRL, Normocephaly, Mucus Membranes Moist Neck: Positive: neck supple, trachea midline Cardiac: Positive: Reg Rate and Rhythm, S1/S2 Lungs: Positive: Decreased Breath Sounds Neuro: Positive: Grossly Intact Abdomen: Negative: Ascites Skin: Positive: Other (chronic skin changes noted in BLE). Negative: Rash Musculoskeletal: No Pain Extremities: Present: +2 Edema (BLE pitting) - Labs and Meds CBC 03/31/19 Range/Units 03:53 Hgb 8.7 L (11.8-15.2) gm/dl Hct 27.2 L (35.5-45.6) % Plt Count 300 (140-440) K/mm3 Comprehensive Metabolic Panel 03/31/19 Range/Units 03:53 Sodium 142 (137-145) mmol/L Potassium 3.7 (3.6-5.0) mmol/L Chloride 103.7 (98-107) mmol/L Carbon Dioxide 29 (22-30) mmol/L BUN 8 L (9-20) mg/dL Creatinine 1.0 (0.8-1.5) mg/dL Glucose 142 H (75-100) mg/dL Calcium 7.5 L (8.4-10.2) mg/dL - Imaging and Cardiology EKG: report reviewed, image reviewed Echo: pending - EKG Sinus rhythms and dysrhythmias: sinus rhythm
--- NOTE | 2019-03-31 16:26 | Progress Note ---
Assessment and Plan /Acute exacerbation of CHF (congestive heart failure) BNP high, ECHO showed EF of 45-50% Daily weigts and I/o's IV lasix q12 Cardiology following /NSTEMI likely type II IV Heparin drip started, Troponin elevation appears c/w NSTEMI type II at this time, Paulo trending downwards, no current chest pain, ECG with no acute ischemic changes. D/c heparin gtt. Will plan for lexiscan MPI stress test in AM for risk stratification. NPO after MN. /Hypertensive emergency Patient initiated on Losartan coreg and IV Hydralazine s/p IV cardene drip / Anasarca Multifactorial including CHF and Malnutrition Albumin very low / Malnutrition, severe Dietitian consultt requested / Anemia Anemia workup ordered / DVT prophylaxis On heparin drip Brief History: 59-year-old male with a past medical history of hypertension not taking any antihypertensives comes in for increasing SOB and Increasing generalized edema including penile and scrotal edema. He also noted to have elevated troponin. Radiological data: Chest x-ray: No acute infiltrates Hospitalist Physical exam: GENERAL: well-developed and well-nourished -Citizen Of [place] male lying on bed appeared to be in no discomfort. HEENT: Normocephalic. Atraumatic. No conjunctival congestion or icterus. Patient has moist mucous membranes. NECK: Supple. Trachea midline. CHEST/LUNGS: Coarse breath sounds auscultated bilaterally, breathing nonlabored. No wheezes HEART/CARDIOVASCULAR: Regular in rate and rhythm. S1 and S2 positive. ABDOMEN: Abdomen is soft, nontender. Patient has normal bowel sounds. SKIN: There is no rash. Warm and dry. NEURO: No focal motor deficit. Follows command. MUSCULOSKELETAL: No joint effusion or tenderness. EXTRIMITY: No edema, no cyanosis or clubbing. PSYCH: Cooperative. Subjective Date of service: 03/31/19 Principal diagnosis: HF Interval history: Patient seen and examined. Medical records and medication list reviewed. No acute event overnight noted by the RN. Patient denies any chest pain but complain of difficulty breathing on exertion but improved now. Patient is tolerating diet. Discussed plan of care at bedside with patient. Objective - Constitutional Vitals: Vital Signs - 12hr 03/31/19 03/31/19 03/31/19 04:35 08:09 10:00 Temperature 98.1 F 98.3 F Pulse Rate 85 83 84 Respiratory 18 16 Rate Blood Pressure 111/73 112/73 O2 Sat by Pulse 100 100 97 Oximetry 03/31/19 12:08 Temperature 97.4 F L Pulse Rate 84 Respiratory 16 Rate Blood Pressure 107/72 O2 Sat by Pulse 98 Oximetry - Labs CBC & Chem 7: 03/31/19 03:53 04/01/19 05:49 Labs: Abnormal lab results 03/31/19 03/31/19 03/31/19 Range/Units 03:53 03:53 03:53 Hgb 8.7 L (11.8-15.2) gm/dl Hct 27.2 L (35.5-45.6) % Heparin Anti-Xa Level 0.11 L (0.3-0.7) U.I./ml BUN 8 L (9-20) mg/dL Glucose 142 H (75-100) mg/dL POC Glucose (70-105) Calcium 7.5 L (8.4-10.2) mg/dL 03/31/19 03/31/19 03/31/19 Range/Units 08:15 10:59 11:38 Hgb (11.8-15.2) gm/dl Hct (35.5-45.6) % Heparin Anti-Xa Level 0.22 L (0.3-0.7) U.I./ml BUN (9-20) mg/dL Glucose (75-100) mg/dL POC Glucose 142 H 129 H (70-105) Calcium (8.4-10.2) mg/dL
--- NOTE | 2019-03-31 17:57 | Progress Note ---
Assessment and Plan atient alert, awake. Patient is on room air. Patient suppose to be on 2 litres O2.O2 saturation 99%. Complaining slight shortness of breath on exertion. Denies cough and chest pain. - Patient Problems (1) Acute respiratory failure Current Visit: Yes Status: Acute Plan to address problem: O2 2 litres via nasal canula. Albuterol aerosol treatments q 5 hours. Continue Famotidine. Recommend S/C Lovenox. (2) Acute HFrEF (heart failure with reduced ejection fraction) Current Visit: Yes Status: Acute Plan to address problem: Management as per cardiology. (3) Atypical chest pain Current Visit: Yes Status: Acute Plan to address problem: No complaint of chest pain to day. (4) High anion gap metabolic acidosis Current Visit: Yes Status: Acute Plan to address problem: Improved. (5) Hypertensive emergency Current Visit: Yes Status: Acute Plan to address problem: Management as per primary care. (6) Diabetes Current Visit: Yes Status: Chronic Plan to address problem: Management as per primary care. Subjective Date of service: 03/31/19 Principal diagnosis: HF Interval history: Patient alert, awake. Patient is on room air. Patient suppose to be on 2 litres O2.O2 saturation 99%. Complaining slight shortness of breath on exertion. Denies cough and chest pain. Objective Vital Signs - 12hr 03/31/19 03/31/19 03/31/19 08:09 10:00 12:08 Temperature 98.3 F 97.4 F L Pulse Rate 83 84 84 Respiratory 16 16 Rate Blood Pressure 112/73 107/72 O2 Sat by Pulse 100 96 98 Oximetry Constitutional: no acute distress, alert Eyes: non-icteric Neck: supple, no lymphadenopathy Ascultation: Bilateral: diminished breath sounds Cardiovascular: regular rate and rhythm Gastrointestinal: normoactive bowel sounds, soft, non-tender Integumentary: normal Extremities: no cyanosis, no edema Neurologic: normal mental status, non-focal exam, pupils equal and round, CN II- XII normal Psychiatric: mood appropriate CBC and BMP: 03/31/19 03:53 03/31/19 03:53 ABG, PT/INR, D-dimer: ABG POC ABG pH 7.401 (7.35-7.45) 03/29/19 18:50 POC ABG pO2 103 (80-105) 03/29/19 18:50 POC ABG HCO3 17.4 (22-26 mml/L) 03/29/19 18:50 POC ABG Total CO2 18 (23-27mmol/L) 03/29/19 18:50 POC ABG O2 Sat 98 03/29/19 18:50 PT/INR, D-dimer PT 18.8 Sec. (12.2-14.9) H 03/29/19 16:56 INR 1.47 (0.87-1.13) H 03/29/19 16:56 Abnormal lab findings: Abnormal Labs 03/29/19 03/29/19 03/29/19 16:56 16:56 16:56 RBC Hgb 9.0 L Hct 29.9 L MCV 74 L MCH 22 L MCHC 30 L RDW 23.2 H Lymph % (Auto) 10.4 L [place] % (Auto) 8.2 H Lymph # 0.9 L Seg Neutrophils % 81.1 H PT 18.8 H INR 1.47 H Heparin Anti-Xa Level Potassium Carbon Dioxide 14 L BUN Glucose POC Glucose Calcium 8.3 L Iron TIBC Transferrin Total Bilirubin 2.00 H AST 43 H Troponin T 0.064 H NT-Pro-B Natriuret Pep Total Protein Albumin 2.8 L LDL Cholesterol Direct 45 L 03/29/19 03/29/19 03/30/19 16:56 19:39 01:31 RBC Hgb Hct MCV MCH MCHC RDW Lymph % (Auto) [place] % (Auto) Lymph # Seg Neutrophils % PT INR Heparin Anti-Xa Level < 0.10 L Potassium Carbon Dioxide BUN Glucose POC Glucose Calcium Iron TIBC Transferrin Total Bilirubin AST Troponin T 0.082 H D NT-Pro-B Natriuret Pep 16793 H Total Protein Albumin LDL Cholesterol Direct 03/30/19 03/30/19 03/30/19 04:43 04:43 07:20 RBC 3.53 L Hgb 8.0 L Hct 24.9 L MCV 71 L MCH 23 L MCHC RDW 22.9 H Lymph % (Auto) [place] % (Auto) 8.9 H Lymph # 1.1 L Seg Neutrophils % 73.2 H PT INR Heparin Anti-Xa Level Potassium 3.5 L Carbon Dioxide BUN Glucose 137 H POC Glucose Calcium 8.0 L Iron 16 L TIBC 203 L Transferrin 178 L Total Bilirubin 1.30 H AST Troponin T NT-Pro-B Natriuret Pep Total Protein 5.8 L D Albumin 2.2 L LDL Cholesterol Direct 03/30/19 03/30/19 03/30/19 07:30 09:59 13:25 RBC Hgb Hct MCV MCH MCHC RDW Lymph % (Auto) [place] % (Auto) Lymph # Seg Neutrophils % PT INR Heparin Anti-Xa Level 0.17 L Potassium Carbon Dioxide BUN Glucose POC Glucose Calcium Iron TIBC Transferrin Total Bilirubin AST Troponin T 0.112 H* D 0.093 H NT-Pro-B Natriuret Pep Total Protein Albumin LDL Cholesterol Direct 03/31/19 03/31/19 03/31/19 03:53 03:53 03:53 RBC Hgb 8.7 L Hct 27.2 L MCV MCH MCHC RDW Lymph % (Auto) [place] % (Auto) Lymph # Seg Neutrophils % PT INR Heparin Anti-Xa Level 0.11 L Potassium Carbon Dioxide BUN 8 L Glucose 142 H POC Glucose Calcium 7.5 L Iron TIBC Transferrin Total Bilirubin AST Troponin T NT-Pro-B Natriuret Pep Total Protein Albumin LDL Cholesterol Direct 03/31/19 03/31/19 03/31/19 08:15 10:59 11:38 RBC Hgb Hct MCV MCH MCHC RDW Lymph % (Auto) [place] % (Auto) Lymph # Seg Neutrophils % PT INR Heparin Anti-Xa Level 0.22 L Potassium Carbon Dioxide BUN Glucose POC Glucose 142 H 129 H Calcium Iron TIBC Transferrin Total Bilirubin AST Troponin T NT-Pro-B Natriuret Pep Total Protein Albumin LDL Cholesterol Direct 03/31/19 17:09 RBC Hgb Hct MCV MCH MCHC RDW Lymph % (Auto) [place] % (Auto) Lymph # Seg Neutrophils % PT INR Heparin Anti-Xa Level Potassium Carbon Dioxide BUN Glucose POC Glucose 159 H Calcium Iron TIBC Transferrin Total Bilirubin AST Troponin T NT-Pro-B Natriuret Pep Total Protein Albumin LDL Cholesterol Direct Chest x-ray: report reviewed (Reported no acute cardiopulmonary abnormality.), image reviewed
[2019-03-31] MEDS: PEPCID PO SCH (21:55)
[2019-04-01] MEDS: SODIUM CHLORIDE FLUSH SYRINGE 10 ML IV SCH ×2 (00:25→11:26)
[2019-04-01] MEDS: LASIX IV SCH (06:14)
[2019-04-01 06:40] LABS: BUN/Creatinine Ratio 9; Blood Urea Nitrogen 10 mg/dL (9-20); Calcium 8.2 mg/dL (8.4-10.2); Hemolysis Index 12
[2019-04-01] MEDS ORDERED: LEXISCAN IV ONE ×2 (08:38→08:39)
--- NOTE | 2019-04-01 09:05 | Progress Note ---
Assessment and Plan Acute hypoxemic respiratory failure Acute exacerbation of CHF (congestive heart failure) -HFrEF- EF 36% Elevated BNP NSTEMI likely type II Hypertensive emergency h/o Diabetes mellitus -Blood pressure control -Continue diuresis as tolerated by renal function and hemodynamics -Monitor electrolyte panel and replete as indicated -VTE prophylaxis -Increase activity -Accucheck with glycemic control -Life style modifications -Heart failure measures -Discussed the need for medical compliance/adherence and the negative consequences of non-adherence -Discharge planning Subjective Date of service: 04/01/19 Principal diagnosis: HF Interval history: Follow up: Acute hypoxemic respiratory failure; NSTEMI; Hypertensive emergency Seen and examined. 24 hour events reviewed. Vitals, labs, medications, chart reviewed. Denies any shortness of breath, not requiring supplemental oxygen. Denies any chest pain, no nausea or vomiting. No abdominal pain. Brother visiting. S/p lexiscan MPI stress test this morning which was negative for ischemia, EF 3 6%. Objective Vital Signs - 12hr 03/31/19 03/31/19 03/31/19 21:42 21:55 22:00 Temperature Pulse Rate 89 Respiratory 18 Rate Blood Pressure 144/82 O2 Sat by Pulse 94 96 Oximetry 03/31/19 03/31/19 04/01/19 23:35 23:36 04:43 Temperature 97.6 F Pulse Rate 94 H 73 Respiratory 18 20 Rate Blood Pressure 122/79 118/82 O2 Sat by Pulse 98 97 Oximetry 04/01/19 04:45 Temperature 98.1 F Pulse Rate Respiratory Rate Blood Pressure O2 Sat by Pulse Oximetry Constitutional: no acute distress, alert Eyes: non-icteric Neck: supple, no lymphadenopathy Ascultation: Bilateral: diminished breath sounds (at the bases) Cardiovascular: regular rate and rhythm Gastrointestinal: normoactive bowel sounds, soft, non-tender Integumentary: normal Extremities: no cyanosis, no edema Neurologic: normal mental status, non-focal exam, pupils equal and round, CN II- XII normal Psychiatric: mood appropriate, affect normal CBC and BMP: 03/31/19 03:53 04/01/19 05:49 ABG, PT/INR, D-dimer: ABG POC ABG pH 7.401 (7.35-7.45) 03/29/19 18:50 POC ABG pO2 103 (80-105) 03/29/19 18:50 POC ABG HCO3 17.4 (22-26 mml/L) 03/29/19 18:50 POC ABG Total CO2 18 (23-27mmol/L) 03/29/19 18:50 POC ABG O2 Sat 98 03/29/19 18:50 PT/INR, D-dimer PT 18.8 Sec. (12.2-14.9) H 03/29/19 16:56 INR 1.47 (0.87-1.13) H 03/29/19 16:56 Abnormal lab findings: Abnormal Labs 03/29/19 03/29/19 03/29/19 16:56 16:56 16:56 RBC Hgb 9.0 L Hct 29.9 L MCV 74 L MCH 22 L MCHC 30 L RDW 23.2 H Lymph % (Auto) 10.4 L [place] % (Auto) 8.2 H Lymph # 0.9 L Seg Neutrophils % 81.1 H PT 18.8 H INR 1.47 H Heparin Anti-Xa Level Potassium Carbon Dioxide 14 L BUN Glucose POC Glucose Calcium 8.3 L Iron TIBC Transferrin Total Bilirubin 2.00 H AST 43 H Troponin T 0.064 H NT-Pro-B Natriuret Pep Total Protein Albumin 2.8 L LDL Cholesterol Direct 45 L 03/29/19 03/29/19 03/30/19 16:56 19:39 01:31 RBC Hgb Hct MCV MCH MCHC RDW Lymph % (Auto) [place] % (Auto) Lymph # Seg Neutrophils % PT INR Heparin Anti-Xa Level < 0.10 L Potassium Carbon Dioxide BUN Glucose POC Glucose Calcium Iron TIBC Transferrin Total Bilirubin AST Troponin T 0.082 H D NT-Pro-B Natriuret Pep 98860 H Total Protein Albumin LDL Cholesterol Direct 03/30/19 03/30/19 03/30/19 04:43 04:43 07:20 RBC 3.53 L Hgb 8.0 L Hct 24.9 L MCV 71 L MCH 23 L MCHC RDW 22.9 H Lymph % (Auto) [place] % (Auto) 8.9 H Lymph # 1.1 L Seg Neutrophils % 73.2 H PT INR Heparin Anti-Xa Level Potassium 3.5 L Carbon Dioxide BUN Glucose 137 H POC Glucose Calcium 8.0 L Iron 16 L TIBC 203 L Transferrin 178 L Total Bilirubin 1.30 H AST Troponin T NT-Pro-B Natriuret Pep Total Protein 5.8 L D Albumin 2.2 L LDL Cholesterol Direct 03/30/19 03/30/19 03/30/19 07:30 09:59 13:25 RBC Hgb Hct MCV MCH MCHC RDW Lymph % (Auto) [place] % (Auto) Lymph # Seg Neutrophils % PT INR Heparin Anti-Xa Level 0.17 L Potassium Carbon Dioxide BUN Glucose POC Glucose Calcium Iron TIBC Transferrin Total Bilirubin AST Troponin T 0.112 H* D 0.093 H NT-Pro-B Natriuret Pep Total Protein Albumin LDL Cholesterol Direct 03/31/19 03/31/19 03/31/19 03:53 03:53 03:53 RBC Hgb 8.7 L Hct 27.2 L MCV MCH MCHC RDW Lymph % (Auto) [place] % (Auto) Lymph # Seg Neutrophils % PT INR Heparin Anti-Xa Level 0.11 L Potassium Carbon Dioxide BUN 8 L Glucose 142 H POC Glucose Calcium 7.5 L Iron TIBC Transferrin Total Bilirubin AST Troponin T NT-Pro-B Natriuret Pep Total Protein Albumin LDL Cholesterol Direct 03/31/19 03/31/19 03/31/19 08:15 10:59 11:38 RBC Hgb Hct MCV MCH MCHC RDW Lymph % (Auto) [place] % (Auto) Lymph # Seg Neutrophils % PT INR Heparin Anti-Xa Level 0.22 L Potassium Carbon Dioxide BUN Glucose POC Glucose 142 H 129 H Calcium Iron TIBC Transferrin Total Bilirubin AST Troponin T NT-Pro-B Natriuret Pep Total Protein Albumin LDL Cholesterol Direct 03/31/19 03/31/19 04/01/19 17:09 21:03 05:49 RBC Hgb Hct MCV MCH MCHC RDW Lymph % (Auto) [place] % (Auto) Lymph # Seg Neutrophils % PT INR Heparin Anti-Xa Level Potassium Carbon Dioxide BUN Glucose 120 H POC Glucose 159 H 141 H Calcium 8.2 L Iron TIBC Transferrin Total Bilirubin AST Troponin T NT-Pro-B Natriuret Pep Total Protein Albumin LDL Cholesterol Direct
[2019-04-01] MEDS ORDERED: BABY ASPIRIN PO SCH (10:00)
[2019-04-01] MEDS: K-DUR PO SCH (11:20)
[2019-04-01] MEDS: COREG PO SCH (11:26)
[2019-04-01] MEDS: PEPCID PO SCH (11:26)
[2019-04-01] MEDS: NORVASC PO SCH (11:27)
[2019-04-01] MEDS: COZAAR PO SCH (11:28)
[2019-04-01 11:29] VITALS: BP 142/84
--- NOTE | 2019-04-01 11:33 | Progress Note ---
Assessment and Plan S/p lexiscan MPI stress test this morning which was negative for ischemia, EF 36%. Cont GDMT and IV diuresis as tolerated. Likely d/c home in AM. The patient has been seen in conjunction with Dr. Juárez who agrees with the assessment and plan of care. - Patient Problems (1) Acute HFrEF (heart failure with reduced ejection fraction) Current Visit: Yes Status: Acute (2) Acute respiratory failure Current Visit: Yes Status: Acute (3) Hypertensive emergency Current Visit: Yes Status: Acute (4) Atypical chest pain Current Visit: Yes Status: Acute (5) NSTEMI (non-ST elevated myocardial infarction) Current Visit: Yes Status: Acute (6) Anemia Current Visit: Yes Status: Chronic Qualifiers: Anemia type: unspecified type Qualified Code(s): D64.9 - Anemia, unspecified (7) Diabetes Current Visit: Yes Status: Chronic (8) Noncompliance with medication regimen Current Visit: Yes Status: Chronic (9) PFO (patent foramen ovale) Current Visit: Yes Status: Chronic Subjective Date of service: 04/01/19 Principal diagnosis: HF Interval history: pt for stress test today, states he is feeling well. in SR. Objective Last Vital Signs Temp 98.1 F 04/01/19 04:45 Pulse 88 04/01/19 11:28 Resp 20 04/01/19 04:43 BP 142/84 04/01/19 11:28 Pulse Ox 100 04/01/19 07:31 - Physical Examination General: No Apparent Distress HEENT: Positive: PERRL, Normocephaly, Mucus Membranes Moist Neck: Positive: neck supple, trachea midline Cardiac: Positive: Reg Rate and Rhythm, S1/S2 Lungs: Positive: Decreased Breath Sounds Neuro: Positive: Grossly Intact Abdomen: Negative: Ascites Skin: Positive: Other (chronic skin changes noted in BLE). Negative: Rash Musculoskeletal: No Pain Extremities: Present: +2 Edema (BLE pitting) - Labs and Meds Comprehensive Metabolic Panel 04/01/19 Range/Units 05:49 Sodium 140 (137-145) mmol/L Potassium 4.4 (3.6-5.0) mmol/L Chloride 100.6 (98-107) mmol/L Carbon Dioxide 28 (22-30) mmol/L BUN 10 (9-20) mg/dL Creatinine 1.1 (0.8-1.5) mg/dL Glucose 120 H (75-100) mg/dL Calcium 8.2 L (8.4-10.2) mg/dL - Imaging and Cardiology EKG: report reviewed, image reviewed Echo: report reviewed (EF 45-50%, mod LVH, impaired relaxation, RA mild to mod dilated, small patent PFO, RVSP 30mmHg, mild IA. ) - Telemetry EKG Rhythm: Sinus Rhythm - EKG Sinus rhythms and dysrhythmias: sinus rhythm
--- NOTE | 2019-04-01 14:19 | Discharge Summary ---
Providers - Providers Date of Admission: 03/29/19 18:27 Date of discharge: 04/01/19 Attending physician: GLORIA SPANN 03/29/19 18:28 Consult to Physician [CONS] Urgent Comment: Consulting Provider: ABDULLAHI CASTILLO Physician Instructions: Reason For Exam: htn emergency, new onset chf, icu admit Consult to Physician [CONS] Urgent Comment: Consulting Provider: YUKI CORREA Physician Instructions: Reason For Exam: htn emergency, new onset chf, noncompliance [facility] Condition: Stable Hospital course: Brief History: 59-year-old male with a past medical history of hypertension not taking any antihypertensives comes in for increasing SOB and Increasing generalized edema including penile and scrotal edema. He also noted to have elevated troponin. Patient was admitted to telemetry with heart failure protocol for further anju luation and management. Radiological data: Chest x-ray: No acute infiltrates MPI stress test - normal 2d echo- EF 45-50% Discharge diagnosis and Mx: /Acute exacerbation of CHFrEF (congestive heart failure) ECHO showed EF of 45-50% managed with Daily weights and I/o's, IV lasix q12h Cardiology consulted was compensated on discharge, will do further f/u outpt /NSTEMI likely type II Troponin elevation appears c/w NSTEMI type II at this time, Paulo trended downwards, no current chest pain, ECG with no acute ischemic changes. s/p heparin gtt. s/p lexiscan MPI stress test in the AM was normal Cardiology cleared the patient for discharge /Hypertensive emergency Patient initiated on Losartan coreg s/p IV cardene drip / Anasarca, improved Multifactorial including CHF and possible Malnutrition Albumin was very low / hypoalbuminemia, due to hypervolumia from CHF - supportive care, volume control with diuretics / Anemia, likely chronic disease Anemia workup ordered Disposition: Home with outpatient follow-up Hospitalist Physical exam: GENERAL: well-developed and well-nourished -[place] male lying on bed appeared to be in no discomfort. HEENT: Normocephalic. Atraumatic. No conjunctival congestion or icterus. Patient has moist mucous membranes. NECK: Supple. Trachea midline. CHEST/LUNGS: Coarse breath sounds auscultated bilaterally, breathing nonlabored. No wheezes HEART/CARDIOVASCULAR: Regular in rate and rhythm. S1 and S2 positive. ABDOMEN: Abdomen is soft, nontender. Patient has normal bowel sounds. SKIN: There is no rash. Warm and dry. NEURO: No focal motor deficit. Follows command. MUSCULOSKELETAL: No joint effusion or tenderness. EXTRIMITY: No edema, no cyanosis or clubbing. PSYCH: Cooperative. Disposition: DC-01 TO HOME OR SELFCARE Time spent for discharge: 34 minutes Core Measure Documentation - Palliative Care Palliative Care/ Comfort Measures: Not Applicable - Core Measures Any of the following diagnoses?: heart failure - Heart Failure Discharge Requirements NEETU/ARB for LVSD if EF <40%: Yes Beta yanick at discharge: Yes Exam - Constitutional Vitals: Temp Pulse Resp BP Pulse Ox 98.1 F 88 20 142/84 97 04/01/19 04:45 04/01/19 11:28 04/01/19 04:43 04/01/19 11:28 04/01/19 10:00 Plan Activity: advance as tolerated Weight Bearing Status: Weight Bear as Tolerated Diet: low fat, low salt Special Instructions: restrict fluid intake to (1.5L ), record daily BP diary Follow up with: NILO VERDINNELSONIA MD JASON [Primary Care Provider] - 7 Days TERRI ROQUE MD [Staff Physician] - 7 Days Prescriptions: AtorvaSTATin [Lipitor] 40 mg PO QHS #30 tablet Aspirin [Aspirin BABY CHEW TAB] 81 mg PO QDAY #30 tab.chew
--- NOTE | 2019-04-01 23:55 | Treadmill Report ---
IV LEXISCAN MYOCARDIAL PERFUSION IMAGING REPORT One day protocol with resting/stress images were obtained using technetium pyrophosphate sestamibi with gated post-stress images. Perfusion images showed there is a mid fixed inferior defect. Transient ischemic dilation ratio was found to be 0.90. Left ventricular size appeared to be dilated with end systolic volume of 218 mL and end systolic volume of 139 mL with calculated ejection fraction post-stress 36%. FINAL IMPRESSION: 1. No significant ischemia noted with fixed inferior defect. 2. Moderate LV dysfunction, ejection fraction of 36% with dilated LV. 3. This is a moderate risk study prognostically. [facility]# [id number] JOE/RYDER
== END 2019-04-01 18:07 | disposition home or self-care (01) | DRG 280 ==
LOC: ED 16:03 → CC1 18:27 → 4A 03-30 16:25
PROVIDERS: ADMIT Internal Medicine; ATTEND Internal Medicine
PROC: 4A033R1 Measurement of Arterial Saturation, Peripheral, Percutaneous Approach (ICD-10-PCS; principal; 2019-03-29)
PROC: 5A09357 Assistance with Respiratory Ventilation, Less than 24 Consecutive Hours, Continuous Positive Airway Pressure (ICD-10-PCS; 2019-03-29)
DX: I21.A1 Myocardial infarction type 2 (principal); E43 Unspecified severe protein-calorie malnutrition; J96.01 Acute respiratory failure with hypoxia; I50.43 Acute on chronic combined systolic (congestive) and diastolic (congestive) heart failure; E87.2 Acidosis; I16.1 Hypertensive emergency; Q21.1 Atrial septal defect; I11.0 Hypertensive heart disease with heart failure; E11.9 Type 2 diabetes mellitus without complications; D64.9 Anemia, unspecified; Z91.14 Patient's other noncompliance with medication regimen; Z68.29 Body mass index [BMI] 29.0-29.9, adult
CPT/HCPCS: 36415; 71045; 78452; 80048; 80053; 80061; 81001; 82607; 82747; 82803; 82962; 83036; 83550; 83880; 84484; 85014; 85018; 85025; 85049; 85520; 85610; 85730; 93005; 93010; 93017; 93306; 94760; 96365; 96375; G0378; A9270-GY; A9502; J1170; J1644; J1940; J2785; J7050

== ENCOUNTER 2019-04-25 15:25 | Inpatient (IN) | payer OTHER ==
--- NOTE | 2019-04-25 16:22 | Emergency Department Report ---
HPI - General Chief Complaint: Dyspnea/Respdistress Time Seen by Provider: 04/25/19 16:12 - HPI HPI: Room 20 The patient is a 59-year-old male presenting with a chief complaint of shortness of breath. He states he develop shortness of breath this morning. Patient denies chest pain but admits to palpitations. Patient denies pleurisy. Patient admits to a cough has been productive of white sputum for one day. Patient states he noticed bilateral lower extremity edema worsening over the past 2-3 weeks. Patient states she's been without his Lasix for approximately 4-5 weeks. Per EMS the patient was in SVT at 156 beats per minutes and converted to sinus tach with a vagal maneuver to rate of 125-130. EMS was unable to obtain a 12- lead or rhythm strip. Location: Lungs Duration: 1 Day Quality: Shortness of breath Severity: [See above] Modifying factors: [see above] Context: [see above] Mode of transportation: [not driving] ED Past Medical Hx - Past Medical History Previous Medical History?: Yes Hx Hypertension: Yes (no meds x1 year) Hx Congestive Heart Failure: Yes Hx Diabetes: Yes (diet controlled) - Surgical History Past Surgical History?: Yes Additional Surgical History: Left thumb, hernia repair - Family History Family history: no significant - Social History Smoking Status: Never Smoker Substance Use Type: None (denies illicit drug use), Alcohol (occasional) - Medications Home Medications: Home Medications Medication Instructions Recorded Confirmed Last Taken Type Aspirin [Aspirin BABY CHEW TAB] 81 mg PO QDAY #30 tab.chew 04/01/19 04/25/19 03/26/19 Rx AtorvaSTATin [Lipitor] 40 mg PO QHS #30 tablet 04/01/19 04/25/19 03/26/19 Rx Furosemide [Lasix TAB] 40 mg PO BID #60 tablet 04/01/19 04/25/19 03/26/19 Rx Losartan [Cozaar] 100 mg PO QDAY #30 tablet 04/01/19 04/25/19 03/26/19 Rx ED Review of Systems ROS: Stated complaint: SOB Other details as noted in HPI Constitutional: no symptoms reported Eyes: denies: eye pain ENT: denies: throat pain Respiratory: shortness of breath Cardiovascular: palpitations. denies: chest pain Endocrine: no symptoms reported Gastrointestinal: vomiting Genitourinary: denies: dysuria Musculoskeletal: denies: back pain Neurological: denies: headache Physical Exam - Physical Exam Vital Signs: Vital Signs 04/25/19 15:42 Temperature 98.0 F Pulse Rate 127 H Respiratory 40 H Rate Blood Pressure 180/126 O2 Sat by Pulse 98 Oximetry Physical Exam: GENERAL: The patient is well-developed well-nourished male lying on stretcher appearing to. [] HEENT: Normocephalic. Atraumatic. Extraocular motions are intact. Patient has moist mucous membranes. NECK: Supple. Trachea midline CHEST/LUNGS: Tachypnea, crackles at right base. HEART/CARDIOVASCULAR: Regular. There is tachycardia. There is no gallop rub or murmur. ABDOMEN: Abdomen is soft, nontender. Patient has normal bowel sounds. There is no abdominal distention. SKIN: There is no rash. There is 1+ bilateral lower extremities pitting edema. There is no diaphoresis. NEURO: The patient is awake, alert, and oriented. The patient is cooperative. The patient has normal speech MUSCULOSKELETAL: There is no evidence of acute injury. ED Course Vital Signs 04/25/19 15:42 Temperature 98.0 F Pulse Rate 127 H Respiratory 40 H Rate Blood Pressure 180/126 O2 Sat by Pulse 98 Oximetry ED Medical Decision Making - Lab Data Result diagrams: 04/25/19 15:55 04/25/19 15:55 Laboratory Tests 04/25/19 04/25/19 04/25/19 15:55 15:55 16:00 WBC 7.9 RBC 4.35 Hgb 9.4 L Hct 30.9 L MCV 71 L MCH 22 L MCHC 31 L RDW 25.5 H Plt Count 268 Lymph % (Auto) Regional Account Director [place] % (Auto) Regional Account Director Eos % (Auto) Regional Account Director Baso % (Auto) Regional Account Director Lymph # Regional Account Director [place] # Regional Account Director Eos # Regional Account Director Baso # Regional Account Director Seg Neutrophils % Regional Account Director Seg Neutrophils # Regional Account Director PT INR APTT Sodium 140 Potassium 4.0 Chloride 102.3 Carbon Dioxide 14 L Anion Gap 28 BUN 8 L Creatinine 0.7 L Estimated GFR > 60 BUN/Creatinine Ratio 11 Glucose 103 H POC Glucose Calcium 9.0 Magnesium Total Creatine Kinase CK-MB (CK-2) CK-MB (CK-2) Rel Index Troponin T TSH Free T4 Urine Color Yellow Urine Turbidity Clear Urine pH 5.0 Ur Specific [place] 1.013 Urine Protein >500 Urine Glucose (UA) Neg Urine Ketones Tr Urine Blood Sm Urine Nitrite Neg Urine Bilirubin Neg Urine Urobilinogen < 2.0 Ur Leukocyte Esterase Neg Urine WBC (Auto) 2.0 Urine RBC (Auto) 1.0 U Epithel Cells (Auto) < 1.0 Urine Mucus Few 04/25/19 04/25/19 04/25/19 16:00 16:00 16:00 WBC RBC Hgb Hct MCV MCH MCHC RDW Plt Count Lymph % (Auto) [place] % (Auto) Eos % (Auto) Baso % (Auto) Lymph # [place] # Eos # Baso # Seg Neutrophils % Seg Neutrophils # PT 14.6 INR 1.17 H APTT 24.9 Sodium Potassium Chloride Carbon Dioxide Anion Gap BUN Creatinine Estimated GFR BUN/Creatinine Ratio Glucose POC Glucose Calcium Magnesium 1.20 L Total Creatine Kinase 196 H CK-MB (CK-2) 5.7 H CK-MB (CK-2) Rel Index 2.9 Troponin T 0.141 H* TSH 3.220 Free T4 0.91 Urine Color Urine Turbidity Urine pH Ur Specific [place] Urine Protein Urine Glucose (UA) Urine Ketones Urine Blood Urine Nitrite Urine Bilirubin Urine Urobilinogen Ur Leukocyte Esterase Urine WBC (Auto) Urine RBC (Auto) U Epithel Cells (Auto) Urine Mucus 04/25/19 16:08 WBC RBC Hgb Hct MCV MCH MCHC RDW Plt Count Lymph % (Auto) [place] % (Auto) Eos % (Auto) Baso % (Auto) Lymph # [place] # Eos # Baso # Seg Neutrophils % Seg Neutrophils # PT INR APTT Sodium Potassium Chloride Carbon Dioxide Anion Gap BUN Creatinine Estimated GFR BUN/Creatinine Ratio Glucose POC Glucose 96 Calcium Magnesium Total Creatine Kinase CK-MB (CK-2) CK-MB (CK-2) Rel Index Troponin T TSH Free T4 Urine Color Urine Turbidity Urine pH Ur Specific [place] Urine Protein Urine Glucose (UA) Urine Ketones Urine Blood Urine Nitrite Urine Bilirubin Urine Urobilinogen Ur Leukocyte Esterase Urine WBC (Auto) Urine RBC (Auto) U Epithel Cells (Auto) Urine Mucus - EKG Data -: EKG Interpreted by Me EKG shows normal: sinus rhythm Rate: tachycardia (133 bpm) - EKG Data When compared to previous EKG there are: previous EKG unavailable Interpretation: nonspecific ST-T wave brenda (T-wave inversion in lead aVL) - Radiology Data Radiology results: report reviewed (chest xray), image reviewed (chest x-ray) interpreted by me: Chest x-ray-CHF [facility] [address] [place] [address] XRay Report Signed Patient: MAURIZIO MUÑIZ MR#: [id number] : 1960 Acct:[id number] Age/Sex: 59 / M ADM Date: 04/25/19 Loc: ED Attending Dr: Ordering Physician: JAYNE ALVARADO MD Date of Service: 04/25/19 Procedure(s): XR chest 1V ap Accession Number(s): [id number] cc: JAYNE ALVARADO MD Fluoro Time In Minutes: CHEST 1 VIEW INDICATION: shortness of breath. Acute shortness of breath today COMPARISON: 03/29/2019 FINDINGS: Support devices: None. Heart: Stable borderline cardiomegaly. Lungs/Pleura: Mild interstitial edema. No effusion. Additional findings: None. IMPRESSION: 1. Stable borderline cardiomegaly with mild interstitial edema. No effusion. Signer Name: Delmar Brady MD Signed: 04/25/2019 4:42 PM Workstation Name: [id number] Transcribed By: JW Dictated By: Delmar Brady MD Electronically Authenticated By: Delmar Brady MD Signed Date/Time: 04/25/191641 DD/ 40 TD/TT: - Differential Diagnosis CHF exacerbation, pneumonia, Critical Care Time: Yes Critical care time in (mins) excluding proc time.: 30 Critical care attestation.: If time is entered above; I have spent that time in minutes in the direct care of this critically ill patient, excluding procedure time. ED Disposition Clinical Impression: Shortness of breath, CHF exacerbation, Hypomagnesemia, Acute respiratory failure Disposition: OP ADMIT IP TO THIS HOSP Is pt being admited?: Yes Does the pt Need Aspirin: Yes Condition: Fair Referrals: NILO VERDINAMBRIDGE MD JASON [Primary Care Provider] - 3-5 Days Time of Disposition: 17:14 (hospitalist paged (Dr Nash))
[2019-04-25] MEDS ORDERED: TRIDIL DRIP 50MG/250ML 50 MG/250 ML BOTTLE IV ONE (16:24)
[2019-04-25] MEDS ORDERED: LASIX IV ONE (16:24)
[2019-04-25] MEDS ORDERED: ASPIRIN PO ONE (16:25)
[2019-04-25 16:43] LABS: BUN/Creatinine Ratio 11; Blood Urea Nitrogen 8 mg/dL (9-20); Hemolysis Index 0
[2019-04-25 16:44] LABS: Bilirubin,Urine NEG (Negative); Blood,Urine SM (Negative); Color,Urine Yellow (Yellow); Mucus,Urine FEW /HPF; Urobilinogen,Urine < 2.0 mg/dL (<2.0)
--- NOTE | 2019-04-25 16:46 | XRay Report ---
CHEST 1 VIEW INDICATION: shortness of breath. Acute shortness of breath today COMPARISON: 03/29/2019 FINDINGS: Support devices: None. Heart: Stable borderline cardiomegaly. Lungs/Pleura: Mild interstitial edema. No effusion. Additional findings: None. IMPRESSION: 1. Stable borderline cardiomegaly with mild interstitial edema. No effusion. Signer Name: Delmar Brady MD Signed: 04/25/2019 4:42 PM Workstation Name: [id number]
[2019-04-25 16:49] LABS: INR 1.17 (0.87-1.13); Partial Thromboplastin Time 24.9 Sec. (24.2-36.6)
[2019-04-25 16:59] LABS: Creatine Kinase MB 5.7 ng/mL (0.0-4.0)
[2019-04-25 17:02] LABS: Hematocrit 30.9 % (35.5-45.6); Hemoglobin 9.4 gm/dl (11.8-15.2); Mean Corpuscular HGB Conc 31 % (32-34); Mean Corpuscular Volume 71 fl (84-94); Platelet Count 268 K/mm3 (140-440); Red Blood Count 4.35 M/mm3 (3.65-5.03); Red Cell Distribution Width 25.5 % (13.2-15.2)
[2019-04-25 17:04] LABS: Protein,Urine >500 mg/dL (Negative)
[2019-04-25] MEDS ORDERED: ATIVAN IV ONE ×2 (17:07→17:30)
[2019-04-25] MEDS ORDERED: MAGNESIUM SULFATE 2GM/50ML 2 GM/50 ML BAG IV ONE (17:08)
[2019-04-25 17:10] LABS: Free T4 (Free Thyroxine) 0.91 ng/dL (0.76-1.46)
[2019-04-25 17:25] LABS: Chol/HDL Ratio 2.69 %
[2019-04-25 17:42] LABS: Anisocytosis 1+; Band Neutrophils # (Manual) 0.1 K/mm3; Eosinophils % (Manual) 0 % (0.0-4.3); Platelet Estimate Consistent w Auto; Total Cells Counted 100
[2019-04-25] MEDS ORDERED: TYLENOL PO PRN (18:59)
[2019-04-25] MEDS ORDERED: IBUPROFEN PO PRN (18:59)
[2019-04-25] MEDS ORDERED: ZOFRAN IV PRN (18:59)
--- NOTE | 2019-04-25 18:59 | History and Physical Report ---
History of Present Illness Date of examination: 04/25/19 Date of admission: 04/25/19 Chief complaint: Increasing SOB for one day History of present illness: The patient is a 59-year-old male presenting with a chief complaint of shortness of breath. He states he developed shortness of breath this morning. Patient denies chest pain but admits to palpitations. Patient admits to a cough productive of white sputum for one day. Patient states he noticed bilateral lower extremity edema worsening over the past 2-3 weeks. Patient states he's been without his Lasix for approximately 4-5 weeks. Per EMS the patient was in SVT at 156 beats per minutes and converted to sinus tach with a vagal maneuver to rate of 125-130. EMS was unable to obtain a 12-lead or rhythm strip. Past Medical History Previous Medical History?: Yes Hypertension: Yes (no meds x1 year) Congestive Heart Failure: Yes Diabetes: Yes (diet controlled) Surgical History Past Surgical History?: Yes Additional Surgical History: Left thumb, hernia repair Family History HTN Social History Smoking Status: Never Smoker Substance Use Type: None (denies illicit drug use), Alcohol (occasional) Medications Home Medications: Home Medications Medication Instructions Recorded Confirmed Last Taken Type Aspirin [Aspirin BABY CHEW TAB] 81 mg PO QDAY #30 tab.chew 04/01/19 04/25/19 03/26/19 Rx AtorvaSTATin [Lipitor] 40 mg PO QHS #30 tablet 04/01/19 04/25/19 03/26/19 Rx Furosemide [Lasix TAB] 40 mg PO BID #60 tablet 04/01/19 04/25/19 03/26/19 Rx Losartan [Cozaar] 100 mg PO QDAY #30 tablet 04/01/19 04/25/19 03/26/19 Rx Review of Systems ROS: Stated complaint: SOB Other details as noted in HPI Constitutional: no symptoms reported Eyes: denies: eye pain ENT: denies: throat pain Respiratory: shortness of breath Cardiovascular: palpitations. denies: chest pain Endocrine: no symptoms reported Gastrointestinal: vomiting Genitourinary: denies: dysuria Musculoskeletal: denies: back pain Neurological: denies: headache Medications and Allergies Allergies Allergy/AdvReac Type Severity Reaction Status Date / Time No Known Allergies Allergy Verified 03/29/19 16:43 Home Medications Medication Instructions Recorded Confirmed Last Taken Type Aspirin [Aspirin BABY CHEW TAB] 81 mg PO QDAY #30 tab.chew 04/01/19 04/25/19 03/26/19 Rx AtorvaSTATin [Lipitor] 40 mg PO QHS #30 tablet 04/01/19 04/25/19 03/26/19 Rx Furosemide [Lasix TAB] 40 mg PO BID #60 tablet 04/01/19 04/25/19 03/26/19 Rx Losartan [Cozaar] 100 mg PO QDAY #30 tablet 04/01/19 04/25/19 03/26/19 Rx Active Meds: Active Medications Nitroglycerin/Dextrose (Tridil Drip 50mg/250ml) 50 mg in 250 mls @ 3 mls/hr IV TITR ONE; Protocol Stop: 04/29/19 03:43 Last Titration: 04/25/19 18:43 Dose: 65 mcg/min, 19.5 mls/hr Documented by: Exam - Constitutional Vitals: Temp Pulse Resp BP Pulse Ox 98.0 F 139 H 47 H 205/143 88 04/25/19 15:42 04/25/19 17:35 04/25/19 17:35 04/25/19 17:35 04/25/19 17:35 General appearance: Present: no acute distress, well-nourished - EENT Eyes: Present: PERRL ENT: hearing intact, clear oral mucosa - Neck Neck: Present: supple, normal ROM - Respiratory Respiratory effort: normal Respiratory: bilateral: CTA, rales - Cardiovascular Heart rate: 130 Rhythm: regular Heart Sounds: Present: S1 & S2. Absent: rub, click - Extremities Extremities: no ischemia, pulses intact, pulses symmetrical, No edema Extremity abnormal: edema (3 plus) Peripheral Pulses: within normal limits - Abdominal General gastrointestinal: Present: soft, non-tender, non-distended, normal bowel sounds Male genitourinary: Present: normal - Rectal Rectal Exam: deferred - Integumentary Integumentary: Present: clear, warm, dry - Musculoskeletal Musculoskeletal: gait normal, strength equal bilaterally - Psychiatric Psychiatric: appropriate mood/affect, intact judgment & insight - Neurologic Neurologic: CNII-XII intact, moves all extremities - Allied Health Allied health notes reviewed: nursing, case management Results - Labs CBC & Chem 7: 04/26/19 03:08 04/26/19 03:08 Labs: Laboratory Last Values WBC 7.9 K/mm3 (4.5-11.0) 04/25/19 15:55 RBC 4.35 M/mm3 (3.65-5.03) 04/25/19 15:55 Hgb 9.4 gm/dl (11.8-15.2) L 04/25/19 15:55 Hct 30.9 % (35.5-45.6) L 04/25/19 15:55 MCV 71 fl (84-94) L 04/25/19 15:55 MCH 22 pg (28-32) L 04/25/19 15:55 MCHC 31 % (32-34) L 04/25/19 15:55 RDW 25.5 % (13.2-15.2) H 04/25/19 15:55 Plt Count 268 K/mm3 (140-440) 04/25/19 15:55 Lymph % (Auto) Correspondence Dictator 04/25/19 15:55 [place] % (Auto) Correspondence Dictator 04/25/19 15:55 Eos % (Auto) Correspondence Dictator 04/25/19 15:55 Baso % (Auto) Correspondence Dictator 04/25/19 15:55 Lymph # Correspondence Dictator 04/25/19 15:55 [place] # Correspondence Dictator 04/25/19 15:55 Eos # Correspondence Dictator 04/25/19 15:55 Baso # Correspondence Dictator 04/25/19 15:55 Add Manual Diff Complete 04/25/19 15:55 Total Counted 100 04/25/19 15:55 Seg Neutrophils % Correspondence Dictator 04/25/19 15:55 Seg Neuts % (Manual) 72.0 % (40.0-70.0) H 04/25/19 15:55 1.0 % 04/25/19 15:55 17.0 % (13.4-35.0) 04/25/19 15:55 Reactive Lymphs % (Man) 0 % 04/25/19 15:55 8.0 % (0.0-7.3) H 04/25/19 15:55 0 % (0.0-4.3) 04/25/19 15:55 2.0 % (0.0-1.8) H 04/25/19 15:55 0 % 04/25/19 15:55 0 % 04/25/19 15:55 0 % 04/25/19 15:55 0 % 04/25/19 15:55 Nucleated RBC % Not Reportable 04/25/19 15:55 Seg Neutrophils # Correspondence Dictator 04/25/19 15:55 Seg Neutrophils # Man 5.7 K/mm3 (1.8-7.7) 04/25/19 15:55 Band Neutrophils # 0.1 K/mm3 04/25/19 15:55 1.3 K/mm3 (1.2-5.4) 04/25/19 15:55 Abs React Lymphs (Man) 0.0 K/mm3 04/25/19 15:55 0.6 K/mm3 (0.0-0.8) 04/25/19 15:55 0.0 K/mm3 (0.0-0.4) 04/25/19 15:55 0.2 K/mm3 (0.0-0.1) H 04/25/19 15:55 0.0 K/mm3 04/25/19 15:55 0.0 K/mm3 04/25/19 15:55 0.0 K/mm3 04/25/19 15:55 Blast Cells # 0.0 K/mm3 04/25/19 15:55 WBC Morphology Not Reportable 04/25/19 15:55 WBC Morphology TNR 04/25/19 15:55 Hypersegmented Neuts Not Reportable 04/25/19 15:55 Hyposegmented Neuts Not Reportable 04/25/19 15:55 Hypogranular Neuts Not Reportable 04/25/19 15:55 Not Reportable 04/25/19 15:55 Not Reportable 04/25/19 15:55 Not Reportable 04/25/19 15:55 Not Reportable 04/25/19 15:55 Not Reportable 04/25/19 15:55 Not Reportable 04/25/19 15:55 Consistent w auto 04/25/19 15:55 Not Reportable 04/25/19 15:55 Plt Clumps, EDTA Not Reportable 04/25/19 15:55 Not Reportable 04/25/19 15:55 Not Reportable 04/25/19 15:55 Not Reportable 04/25/19 15:55 Plt Morphology Comment Not Reportable 04/25/19 15:55 RBC Morphology Not Reportable 04/25/19 15:55 Dimorphic RBCs Not Reportable 04/25/19 15:55 Not Reportable 04/25/19 15:55 Not Reportable 04/25/19 15:55 Not Reportable 04/25/19 15:55 1+ 04/25/19 15:55 Not Reportable 04/25/19 15:55 Not Reportable 04/25/19 15:55 Not Reportable 04/25/19 15:55 Not Reportable 04/25/19 15:55 Not Reportable 04/25/19 15:55 Not Reportable 04/25/19 15:55 Not Reportable 04/25/19 15:55 Not Reportable 04/25/19 15:55 Not Reportable 04/25/19 15:55 Not Reportable 04/25/19 15:55 Not Reportable 04/25/19 15:55 Not Reportable 04/25/19 15:55 Not Reportable 04/25/19 15:55 Not Reportable 04/25/19 15:55 Not Reportable 04/25/19 15:55 Acanthocytes (Spur) Not Reportable 04/25/19 15:55 Rouleaux Not Reportable 04/25/19 15:55 Not Reportable 04/25/19 15:55 Not Reportable 04/25/19 15:55 Not Reportable 04/25/19 15:55 Not Reportable 04/25/19 15:55 Hem Pathologist Commnt No 04/25/19 15:55 PT 14.6 Sec. (12.2-14.9) 04/25/19 16:00 INR 1.17 (0.87-1.13) H 04/25/19 16:00 APTT 24.9 Sec. (24.2-36.6) 04/25/19 16:00 POC ABG pH 7.338 (7.35-7.45) L 04/25/19 18:19 POC ABG pCO2 30.7 (35-45) L 04/25/19 18:19 POC ABG pO2 165 (80-105) H 04/25/19 18:19 POC ABG HCO3 16.5 (22-26 mml/L) 04/25/19 18:19 POC ABG Total CO2 17 (23-27mmol/L) 04/25/19 18:19 POC ABG O2 Sat 99 04/25/19 18:19 POC ABG Base Excess -9 ((-2) - (+3)mmol/L) 04/25/19 18:19 50 % 04/25/19 18:19 Sodium 140 mmol/L (137-145) 04/25/19 15:55 Potassium 4.0 mmol/L (3.6-5.0) 04/25/19 15:55 Chloride 102.3 mmol/L (98-107) 04/25/19 15:55 Carbon Dioxide 14 mmol/L (22-30) L 04/25/19 15:55 28 mmol/L 04/25/19 15:55 BUN 8 mg/dL (9-20) L 04/25/19 15:55 0.7 mg/dL (0.8-1.5) L 04/25/19 15:55 Estimated GFR > 60 ml/min 04/25/19 15:55 11 % 04/25/19 15:55 Glucose 103 mg/dL (75-100) H 04/25/19 15:55 POC Glucose 96 (70-105) 04/25/19 16:08 Calcium 9.0 mg/dL (8.4-10.2) 04/25/19 15:55 Magnesium 1.20 mg/dL (1.7-2.3) L 04/25/19 16:00 196 units/L (55-170) H 04/25/19 16:00 CK-MB (CK-2) 5.7 ng/mL (0.0-4.0) H 04/25/19 16:00 CK-MB (CK-2) Rel Index 2.9 (0-4) 04/25/19 16:00 0.141 ng/mL (0.00-0.029) H* 04/25/19 16:00 Triglycerides 71 mg/dL (2-149) 04/25/19 16:00 Cholesterol 178 mg/dL (50-199) 04/25/19 16:00 104 mg/dL (50-130) 04/25/19 16:00 66 mg/dL (40-59) H 04/25/19 16:00 2.69 % 04/25/19 16:00 TSH 3.220 mlU/mL (0.270-4.200) 04/25/19 16:00 Free T4 0.91 ng/dL (0.76-1.46) 04/25/19 16:00 Yellow (Yellow) 04/25/19 16:00 Clear (Clear) 04/25/19 16:00 5.0 (5.0-7.0) 04/25/19 16:00 Ur Specific [place] 1.013 (1.003-1.030) 04/25/19 16:00 >500 mg/dL (Negative) 04/25/19 16:00 Neg mg/dL (Negative) 04/25/19 16:00 Tr mg/dL (Negative) 04/25/19 16:00 Sm (Negative) 04/25/19 16:00 Neg (Negative) 04/25/19 16:00 Neg (Negative) 04/25/19 16:00 < 2.0 mg/dL (<2.0) 04/25/19 16:00 Ur Leukocyte Esterase Neg (Negative) 04/25/19 16:00 2.0 /HPF (0.0-6.0) 04/25/19 16:00 1.0 /HPF (0.0-6.0) 04/25/19 16:00 U Epithel Cells (Auto) < 1.0 /HPF (0-13.0) 04/25/19 16:00 Few /HPF 04/25/19 16:00 Short CBC 04/25/19 04/25/19 04/26/19 Range/Units 15:55 20:08 03:08 WBC 7.9 9.1 (4.5-11.0) K/mm3 Hgb 9.4 L 9.3 L 8.8 L (11.8-15.2) gm/dl Hct 30.9 L 30.3 L 27.9 L (35.5-45.6) % Plt Count 268 286 279 (140-440) K/mm3 BMP 04/25/19 04/26/19 15:55 03:08 Sodium 140 136 L Potassium 4.0 4.4 Chloride 102.3 98.8 Carbon Dioxide 14 L 21 L D BUN 8 L 10 Creatinine 0.7 L 0.8 Glucose 103 H 148 H Calcium 9.0 9.1 Cardiac Enzymes 04/25/19 Range/Units 16:00 Total Creatine Kinase 196 H (55-170) units/L CK-MB (CK-2) 5.7 H (0.0-4.0) ng/mL Troponin T 0.141 H* (0.00-0.029) ng/mL Liver Function 04/26/19 Range/Units 03:08 Total Bilirubin 1.50 H (0.1-1.2) mg/dL AST 24 (5-40) units/L ALT 7 (7-56) units/L Alkaline Phosphatase 123 (35-129) units/L Albumin 3.5 L (3.9-5) g/dL Urine 04/25/19 Range/Units 16:00 Urine Color Yellow (Yellow) Urine pH 5.0 (5.0-7.0) Ur Specific [place] 1.013 (1.003-1.030) Urine Protein >500 (Negative) mg/dL Urine Glucose (UA) Neg (Negative) mg/dL - Imaging and Cardiology EKG: report reviewed (Sinus Tach 130/min) Chest x-ray: report reviewed Imaging and Cardiology: CXR IMPRESSION: 1. Stable borderline cardiomegaly with mild interstitial edema. No effusion. Assessment and Plan Assessment and plan: CCT 38 minutes Advance Directives: Yes (Full code) VTE prophylaxis?: Chemical Plan of care discussed with patient/family: Yes - Patient Problems (1) Acute respiratory failure with hypoxia Current Visit: Yes Status: Acute Plan to address problem: Sec to CHF exacerbation IV Lasix Bipap for now Intubation if necessary (2) NSTEMI (non-ST elevated myocardial infarction) Current Visit: Yes Status: Acute Plan to address problem: On Heparin drip and Isosorbide drip (3) Acute exacerbation of CHF (congestive heart failure) Current Visit: Yes Status: Acute Qualifiers: Heart failure type: diastolic Qualified Code(s): I50.33 - Acute on chronic diastolic (congestive) heart failure Plan to address problem: Diastolic Heart failure sec to HTN Noncompliance Not taking Lasix and antihuypertensives IV lasix bid Daily weighrs Daily i/o's Echo fo rEF and valve function Cardiology consult (4) Tachycardia with hypertension Current Visit: Yes Status: Acute Plan to address problem: Control BP and CHF IV lopressor prn (5) HTN (hypertension) Current Visit: Yes Status: Chronic Qualifiers: Hypertension type: essential hypertension Qualified Code(s): I10 - Essential (primary) hypertension Plan to address problem: Anti hypertensives initiated Counselled about noncompliance IV Hydralazine Prn (6) T2DM (type 2 diabetes mellitus) Current Visit: Yes Status: Chronic Qualifiers: Diabetes mellitus skilled nursing insulin use: without continuous churn buttermaker use Plan to address problem: COverage for now (7) HLD (hyperlipidemia) Current Visit: Yes Status: Chronic Qualifiers: Hyperlipidemia type: mixed hyperlipidemia Qualified Code(s): E78.2 - Mixed hyperlipidemia Plan to address problem: Statins initiated (8) DVT prophylaxis Current Visit: Yes Status: Acute Plan to address problem: On Heparin drip
[2019-04-25] MEDS ORDERED: HEPARIN/ 0.45% NACL-25,000 UNIT/500 ML 25,000 UNIT/500 ML BAG IV SCH (20:00)
[2019-04-25] MEDS ORDERED: HEPARIN 10,000 UNITS/10 ML IV ONE (20:00)
[2019-04-25] MEDS: COZAAR PO SCH (20:14)
[2019-04-25] MEDS: K-DUR PO SCH (20:15)
[2019-04-25 21:13] LABS: Hematocrit 30.3 % (35.5-45.6); Hemoglobin 9.3 gm/dl (11.8-15.2)
[2019-04-25 21:26] LABS: INR 1.22 (0.87-1.13)
[2019-04-25 21:27] LABS: Partial Thromboplastin Time 27.3 Sec. (24.2-36.6)
[2019-04-25] MEDS: DILAUDID IV PRN (21:28)
[2019-04-25] MEDS: SODIUM CHLORIDE FLUSH SYRINGE 10 ML IV SCH (22:08)
[2019-04-26] MEDS ORDERED: CARDIZEM IV ONE (00:18)
[2019-04-26] MEDS ORDERED: LOPRESSOR IV ONE ×2 (00:20→06:24)
[2019-04-26] MEDS: DILAUDID IV PRN ×2 (03:40→11:10)
[2019-04-26 04:16] LABS: Hematocrit 27.9 % (35.5-45.6); Hemoglobin 8.8 gm/dl (11.8-15.2); Mean Corpuscular HGB Conc 32 % (32-34); Mean Corpuscular Volume 70 fl (84-94); Platelet Count 279 K/mm3 (140-440); Red Blood Count 3.98 M/mm3 (3.65-5.03)
[2019-04-26 04:20] LABS: Red Cell Distribution Width 24.6 % (13.2-15.2)
[2019-04-26 04:27] LABS: Alanine Aminotransferase 7 units/L (7-56); Albumin 3.5 g/dL (3.9-5); BUN/Creatinine Ratio 13; Blood Urea Nitrogen 10 mg/dL (9-20); Calcium 9.1 mg/dL (8.4-10.2); Hemolysis Index 1
--- NOTE | 2019-04-26 04:41 | Event Note ---
<RADHA LOPEZ - Last Filed: 04/26/19 04:39> Date: 04/26/19 Called to bedside to evaluate patient with hypertensive SBP 170's-190's and DBP 110's-120's and tacycardiac with HR 130's-140's. He was on Nitro gtt and heparin gtt.STAT EKG showed SVT. Nitro gtt held. He was given adenosine 6mg x1, adenosine 12mg x2, and was not responsive. He was then given IV Cardizem 20mg with slight response in systolic BP. IV Lopressor 5mg was given and he was responsive. HR in low 100's, SBP 160;s, and DBP 90's. This pt was seen in conjunction with Dr. Alberto <TYRA ALBERTO - Last Filed: 04/26/19 06:28> Patient heart rate decreased from 130s to the 1 teens weight 12 I the adenosine but was not sustained. Agree with the rest of the above note The high probability of a clinically significant, sudden or life threatening deterioration of the [CV, GI, respiratory] system(s) required my full and direct attention, intervention and personal management. The aggregate critical care time was [ 35] minutes. This time is in addition to time spent performing reported procedures but includes the following: x] Data Review and interpretation [x] Patient assessment and monitoring of vital signs [x] Documentation [x] Medication orders and management
[2019-04-26 05:09] LABS: Basophils % (Manual) 0 % (0.0-1.8); Eosinophils % (Manual) 0 % (0.0-4.3); Total Cells Counted 100
[2019-04-26 05:10] LABS: Anisocytosis 2+; Hypochromasia 1+
[2019-04-26 05:11] LABS: Platelet Estimate Consistent w Auto; Poikilocytosis Few; Target Cells Few
[2019-04-26] MEDS: LASIX IV SCH ×2 (05:49→17:50)
[2019-04-26] MEDS: ATIVAN IV PRN ×10 (05:53→21:25)
--- NOTE | 2019-04-26 08:29 | Progress Note ---
Assessment and Plan Assessment and plan: --Hypertensive emergency; on Tridil drip Closely monitor blood pressures, resume multiple home antihypertensives Titrate abd DC Tridil drip --Acute exacerbation of diastolic congestive heart failure; Continue antiseizure medications Include monitoring, daily weights, supportive care with --Non-SETMI; positive troponins/ probably type2 Aspirin and beta blockers and umm inhibitors and nitrates statins Heparin drip, patient had recent negative stress test --Supraventricular tachycardia; Multiple doses of adenosine, on beta yanick Cardiology consultation --Alcohol withdrawal symptoms; continue CIWI protocol Restraint for safety versus safety attendant --Dyslipidemia; continue statin --DVT prophylaxis; patient is on heparin drip Monitor closely and adjust the management as needed Plan of care developed with the patient's nurse Critical care time 35 minutes History Interval history: 59-year-old -[place] male patient well known for services admitted through emergency room with worsening shortness of breath, patient was noted to have SVT Received multiple doses of adenosine.,Patient in hypertensive emergency , non-ST elevation MO currently on Tridil and heparin drip, , heart rate slightly improved. Possible alcohol withdrawal on CIWA protocol Patient seen and examined medical records reviewed Patient is with history, sedated, restrained for safety Vital signs reviewed Hospitalist Physical - Constitutional Vitals: Temp Pulse Resp BP Pulse Ox 98.3 F 124 H 30 H 171/112 97 04/26/19 03:51 04/26/19 06:40 04/26/19 06:40 04/26/19 06:40 04/26/19 06:30 General appearance: Present: no acute distress, well-nourished, other (lethergic ,) - EENT Eyes: Present: PERRL, EOM intact - Neck Neck: Present: supple, normal ROM - Respiratory Respiratory effort: normal Respiratory: bilateral: diminished, rhonchi, negative: rales, wheezing - Cardiovascular Rhythm: regular Heart Sounds: Present: S1 & S2 - Extremities Extremities: no ischemia, No edema - Abdominal General gastrointestinal: soft, non-tender, non-distended, normal bowel sounds - Integumentary Integumentary: Present: clear, warm - Psychiatric Psychiatric: other (lethergic/sedated) - Neurologic Neurologic: moves all extremities Results - Labs CBC & Chem 7: 04/26/19 03:08 04/26/19 03:08 Labs: Laboratory Last Values WBC 9.1 K/mm3 (4.5-11.0) 04/26/19 03:08 RBC 3.98 M/mm3 (3.65-5.03) 04/26/19 03:08 Hgb 8.8 gm/dl (11.8-15.2) L 04/26/19 03:08 Hct 27.9 % (35.5-45.6) L 04/26/19 03:08 MCV 70 fl (84-94) L 04/26/19 03:08 MCH 22 pg (28-32) L 04/26/19 03:08 MCHC 32 % (32-34) 04/26/19 03:08 RDW 24.6 % (13.2-15.2) H 04/26/19 03:08 Plt Count 279 K/mm3 (140-440) 04/26/19 03:08 Lymph % (Auto) Furniture Removalist'S Assistant 04/25/19 15:55 [place] % (Auto) Furniture Removalist'S Assistant 04/25/19 15:55 Eos % (Auto) Furniture Removalist'S Assistant 04/25/19 15:55 Baso % (Auto) Furniture Removalist'S Assistant 04/25/19 15:55 Lymph # Furniture Removalist'S Assistant 04/25/19 15:55 [place] # Furniture Removalist'S Assistant 04/25/19 15:55 Eos # Furniture Removalist'S Assistant 04/25/19 15:55 Baso # Furniture Removalist'S Assistant 04/25/19 15:55 Add Manual Diff Complete 04/26/19 03:08 Total Counted 100 04/26/19 03:08 Seg Neutrophils % Furniture Removalist'S Assistant 04/25/19 15:55 Seg Neuts % (Manual) 85.0 % (40.0-70.0) H 04/26/19 03:08 0 % 04/26/19 03:08 11.0 % (13.4-35.0) L 04/26/19 03:08 Reactive Lymphs % (Man) 0 % 04/26/19 03:08 4.0 % (0.0-7.3) 04/26/19 03:08 0 % (0.0-4.3) 04/26/19 03:08 0 % (0.0-1.8) 04/26/19 03:08 0 % 04/26/19 03:08 0 % 04/26/19 03:08 0 % 04/26/19 03:08 0 % 04/26/19 03:08 Nucleated RBC % Not Reportable 04/26/19 03:08 Seg Neutrophils # Furniture Removalist'S Assistant 04/25/19 15:55 Seg Neutrophils # Man 7.7 K/mm3 (1.8-7.7) 04/26/19 03:08 Band Neutrophils # 0.0 K/mm3 04/26/19 03:08 1.0 K/mm3 (1.2-5.4) L 04/26/19 03:08 Abs React Lymphs (Man) 0.0 K/mm3 04/26/19 03:08 0.4 K/mm3 (0.0-0.8) 04/26/19 03:08 0.0 K/mm3 (0.0-0.4) 04/26/19 03:08 0.0 K/mm3 (0.0-0.1) 04/26/19 03:08 0.0 K/mm3 04/26/19 03:08 0.0 K/mm3 04/26/19 03:08 0.0 K/mm3 04/26/19 03:08 Blast Cells # 0.0 K/mm3 04/26/19 03:08 WBC Morphology Not Reportable 04/26/19 03:08 Hypersegmented Neuts Not Reportable 04/26/19 03:08 Hyposegmented Neuts Not Reportable 04/26/19 03:08 Hypogranular Neuts Not Reportable 04/26/19 03:08 Not Reportable 04/26/19 03:08 Not Reportable 04/26/19 03:08 Not Reportable 04/26/19 03:08 Not Reportable 04/26/19 03:08 Not Reportable 04/26/19 03:08 Not Reportable 04/26/19 03:08 Consistent w auto 04/26/19 03:08 Not Reportable 04/26/19 03:08 Plt Clumps, EDTA Not Reportable 04/26/19 03:08 Not Reportable 04/26/19 03:08 Not Reportable 04/26/19 03:08 Not Reportable 04/26/19 03:08 Plt Morphology Comment Not Reportable 04/26/19 03:08 RBC Morphology Not Reportable 04/26/19 03:08 Dimorphic RBCs Not Reportable 04/26/19 03:08 Few 04/26/19 03:08 1+ 04/26/19 03:08 Few 04/26/19 03:08 2+ 04/26/19 03:08 Not Reportable 04/26/19 03:08 Not Reportable 04/26/19 03:08 Not Reportable 04/26/19 03:08 Not Reportable 04/26/19 03:08 Not Reportable 04/26/19 03:08 Few 04/26/19 03:08 Not Reportable 04/26/19 03:08 Not Reportable 04/26/19 03:08 Not Reportable 04/26/19 03:08 Not Reportable 04/26/19 03:08 Not Reportable 04/26/19 03:08 Not Reportable 04/26/19 03:08 Not Reportable 04/26/19 03:08 Not Reportable 04/26/19 03:08 Not Reportable 04/26/19 03:08 Acanthocytes (Spur) Not Reportable 04/26/19 03:08 Rouleaux Not Reportable 04/26/19 03:08 Not Reportable 04/26/19 03:08 Not Reportable 04/26/19 03:08 Not Reportable 04/26/19 03:08 Not Reportable 04/26/19 03:08 Hem Pathologist Commnt No 04/26/19 03:08 PT 15.1 Sec. (12.2-14.9) H 04/25/19 20:08 INR 1.22 (0.87-1.13) H 04/25/19 20:08 APTT 27.3 Sec. (24.2-36.6) 04/25/19 20:08 Heparin Anti-Xa Level < 0.10 U.I./ml (0.3-0.7) L 04/26/19 03:08 POC ABG pH 7.338 (7.35-7.45) L 04/25/19 18:19 POC ABG pCO2 30.7 (35-45) L 04/25/19 18:19 POC ABG pO2 165 (80-105) H 04/25/19 18:19 POC ABG HCO3 16.5 (22-26 mml/L) 04/25/19 18:19 POC ABG Total CO2 17 (23-27mmol/L) 04/25/19 18:19 POC ABG O2 Sat 99 04/25/19 18:19 POC ABG Base Excess -9 ((-2) - (+3)mmol/L) 04/25/19 18:19 50 % 04/25/19 18:19 Sodium 136 mmol/L (137-145) L 04/26/19 03:08 Potassium 4.4 mmol/L (3.6-5.0) 04/26/19 03:08 Chloride 98.8 mmol/L (98-107) 04/26/19 03:08 Carbon Dioxide 21 mmol/L (22-30) L D 04/26/19 03:08 21 mmol/L 04/26/19 03:08 BUN 10 mg/dL (9-20) 04/26/19 03:08 0.8 mg/dL (0.8-1.5) 04/26/19 03:08 Estimated GFR > 60 ml/min 04/26/19 03:08 13 % 04/26/19 03:08 Glucose 148 mg/dL (75-100) H 04/26/19 03:08 POC Glucose 96 (70-105) 04/25/19 16:08 5.8 % (4-6) 04/25/19 20:08 Calcium 9.1 mg/dL (8.4-10.2) 04/26/19 03:08 Magnesium 1.20 mg/dL (1.7-2.3) L 04/25/19 16:00 1.50 mg/dL (0.1-1.2) H 04/26/19 03:08 AST 24 units/L (5-40) 04/26/19 03:08 ALT 7 units/L (7-56) 04/26/19 03:08 123 units/L (35-129) 04/26/19 03:08 196 units/L (55-170) H 04/25/19 16:00 CK-MB (CK-2) 5.7 ng/mL (0.0-4.0) H 04/25/19 16:00 CK-MB (CK-2) Rel Index 2.9 (0-4) 04/25/19 16:00 0.141 ng/mL (0.00-0.029) H* 04/25/19 16:00 8.6 g/dL (6.3-8.2) H 04/26/19 03:08 3.5 g/dL (3.9-5) L 04/26/19 03:08 0.7 % 04/26/19 03:08 Triglycerides 71 mg/dL (2-149) 04/25/19 16:00 Cholesterol 178 mg/dL (50-199) 04/25/19 16:00 104 mg/dL (50-130) 04/25/19 16:00 66 mg/dL (40-59) H 04/25/19 16:00 2.69 % 04/25/19 16:00 TSH 3.220 mlU/mL (0.270-4.200) 04/25/19 16:00 Free T4 0.91 ng/dL (0.76-1.46) 04/25/19 16:00 Yellow (Yellow) 04/25/19 16:00 Clear (Clear) 04/25/19 16:00 5.0 (5.0-7.0) 04/25/19 16:00 Ur Specific Reading 1.013 (1.003-1.030) 04/25/19 16:00 >500 mg/dL (Negative) 04/25/19 16:00 Neg mg/dL (Negative) 04/25/19 16:00 Tr mg/dL (Negative) 04/25/19 16:00 Sm (Negative) 04/25/19 16:00 Neg (Negative) 04/25/19 16:00 Neg (Negative) 04/25/19 16:00 < 2.0 mg/dL (<2.0) 04/25/19 16:00 Ur Leukocyte Esterase Neg (Negative) 04/25/19 16:00 2.0 /HPF (0.0-6.0) 04/25/19 16:00 1.0 /HPF (0.0-6.0) 04/25/19 16:00 U Epithel Cells (Auto) < 1.0 /HPF (0-13.0) 04/25/19 16:00 Few /HPF 04/25/19 16:00 Active Medications - Current Medications Current Medications: Generic Name Dose Route Start Last Admin Trade Name Freq PRN Reason Stop Dose Admin Acetaminophen 650 mg 04/25/19 18:59 Tylenol PO Q4H PRN Pain MILD(1-3)/Fever >100.5/COSTA Aspirin 81 mg 04/26/19 10:00 Baby Aspirin PO QDAY LARRY Atorvastatin Calcium 40 mg 04/25/19 22:00 04/25/19 22:07 Lipitor PO 40 mg QHS LARRY Administration Carvedilol 12.5 mg 04/26/19 10:00 Coreg PO BID LARRY Furosemide 40 mg 04/26/19 06:00 04/26/19 05:49 Lasix IV 40 mg 0600,1800 LARRY Administration Hydralazine HCl 50 mg 04/26/19 08:00 Apresoline PO Q8HR [facility] Hydromorphone HCl 0.5 mg 04/25/19 18:59 04/26/19 03:40 Dilaudid IV 0.5 mg Q3H PRN Administration Pain , Severe (7-10) Nitroglycerin/Dextrose 50 mg in 250 mls @ 3 mls/hr 04/25/19 16:24 04/25/19 19:37 Tridil Drip 50mg/250ml IV 04/29/19 03:43 85 mcg/min TITR ONE 25.5 mls/hr Titration Protocol 10 MCG/MIN Heparin Sodium/Sodium Chloride 25,000 unit in 500 mls @ 20 mls/hr 04/25/19 20:00 04/26/19 04:29 Heparin/ 0.45% Nacl-25,000 Unit/500 Ml IV 1,150 units/hr TITRATE LARRY 23 mls/hr Titration Protocol 1,000 UNITS/HR Ibuprofen 600 mg 04/25/19 18:59 Ibuprofen PO Q6H PRN Pain, Mild (1-3) Lorazepam 2 mg 04/26/19 05:19 04/26/19 06:39 Ativan IV 2 mg Q1H PRN Administration CIWA-Ar 8-15 Lorazepam 4 mg 04/26/19 05:19 04/26/19 06:55 Ativan IV 4 mg Q1H PRN Administration CIWA-Ar 16-25 Lorazepam 4 mg 04/26/19 05:19 Ativan IV Q15MIN PRN CIWA-Ar >25 Losartan Potassium 100 mg 04/25/19 20:00 04/25/19 20:14 Cozaar PO 100 mg QDAY LARRY Administration Nicardipine HCl 30 mg 04/26/19 14:00 Cardene PO Q8HR LARRY Ondansetron HCl 4 mg 04/25/19 18:59 Zofran IV Q8H PRN Nausea And Vomiting Potassium Chloride 20 meq 04/25/19 20:00 04/25/19 20:15 K-Dur PO 20 meq Q12H LARRY Administration Sodium Chloride 10 ml 04/25/19 22:00 04/25/19 22:08 Sodium Chloride Flush Syringe 10 Ml IV 10 ml BID LARRY Administration Sodium Chloride 10 ml 04/25/19 18:59 Sodium Chloride Flush Syringe 10 Ml IV PRN PRN LINE FLUSH
[2019-04-26 09:09] LABS: Creatine Kinase MB 3.5 ng/mL (0.0-4.0)
[2019-04-26] MEDS: COZAAR PO SCH (09:16)
[2019-04-26] MEDS: APRESOLINE PO SCH ×3 (09:16→22:00)
[2019-04-26] MEDS: COREG PO SCH ×2 (09:16→22:00)
[2019-04-26] MEDS: BABY ASPIRIN PO SCH (09:17)
[2019-04-26] MEDS: K-DUR PO SCH ×2 (09:17→20:25)
[2019-04-26] MEDS ORDERED: MAGNESIUM SULFATE 4GM/100ML 4 GM/100 ML BAG IV ONE (10:00)
[2019-04-26] MEDS: SODIUM CHLORIDE FLUSH SYRINGE 10 ML IV SCH (10:14)
--- NOTE | 2019-04-26 11:02 | Consultation ---
History of Present Illness Consult date: 04/26/19 Requesting physician: EVA BREAUX Consult reason: congestive heart failure, elevated troponin History of present illness: The pt is a 59-year-old male with a past medical history of HF, hypertension, diabetes, ETOH use (drinks whiskey 2-3 days per week). He has been seen by our practice on prior hospitalization. He presented with c/o SOB and palpitations for several days prior to arrival. He denies any chest pain, n/v, diaphoresis, dizziness or syncope. Following arrival, pt found to have hypertensive emergency and was initiated on nitro gtt. Pt also found to have acute heart failure, acute respiratory failure and elevated Paulo for which he was initiated on a heparin gtt. Also, per the chart, EMS reported that the patient was in SVT at 156 beats per minutes and converted to sinus tach with a vagal maneuver to rate of 125- 130. EMS was unable to obtain a 12-lead or rhythm strip. Pt was suspected to have an additional episode of SVT this AM and was given adenosine per the chart. Pt is currently in sinus tachycardia. lexiscan MPI stress test done 04/01/2019 was negative for ischemia, EF 36%. Echo done 03/29/2019 showed EF 45-50%, mod LVH, impaired relaxation, RA mild to mod dilated, small patent PFO, RVSP 30mmHg, mild FL. Past History Past Medical History: diabetes, heart failure, hypertension Social history: alcohol abuse Medications and Allergies Allergies Allergy/AdvReac Type Severity Reaction Status Date / Time No Known Allergies Allergy Verified 03/29/19 16:43 Home Medications Medication Instructions Recorded Confirmed Last Taken Type Aspirin [Aspirin BABY CHEW TAB] 81 mg PO QDAY #30 tab.chew 04/01/19 04/25/19 03/26/19 Rx AtorvaSTATin [Lipitor] 40 mg PO QHS #30 tablet 04/01/19 04/25/19 03/26/19 Rx Furosemide [Lasix TAB] 40 mg PO BID #60 tablet 04/01/19 04/25/19 03/26/19 Rx Losartan [Cozaar] 100 mg PO QDAY #30 tablet 04/01/19 04/25/19 03/26/19 Rx Active Meds: Active Medications Acetaminophen (Tylenol) 650 mg PO Q4H PRN PRN Reason: Pain MILD(1-3)/Fever >100.5/COSTA Aspirin (Baby Aspirin) 81 mg PO QDAY [facility] Last Admin: 04/26/19 09:17 Dose: 81 mg Documented by: Atorvastatin Calcium (Lipitor) 40 mg PO QHS [facility] Last Admin: 04/25/19 22:07 Dose: 40 mg Documented by: Carvedilol (Coreg) 12.5 mg PO BID [facility] Last Admin: 04/26/19 09:16 Dose: 12.5 mg Documented by: Furosemide (Lasix) 40 mg IV 0600,1800 [facility] Last Admin: 04/26/19 05:49 Dose: 40 mg Documented by: Hydralazine HCl (Apresoline) 50 mg PO Q8HR [facility] Last Admin: 04/26/19 09:16 Dose: 50 mg Documented by: Hydromorphone HCl (Dilaudid) 0.5 mg IV Q3H PRN PRN Reason: Pain , Severe (7-10) Last Admin: 04/26/19 03:40 Dose: 0.5 mg Documented by: Nitroglycerin/Dextrose (Tridil Drip 50mg/250ml) 50 mg in 250 mls @ 3 mls/hr IV TITR ONE; Protocol Stop: 04/29/19 03:43 Last Titration: 04/25/19 19:37 Dose: 85 mcg/min, 25.5 mls/hr Documented by: Heparin Sodium/Sodium Chloride (Heparin/ 0.45% Nacl-25,000 Unit/500 Ml) 25,000 unit in 500 mls @ 20 mls/hr IV TITRATE [facility]; Protocol Last Titration: 04/26/19 04:29 Dose: 1,150 units/hr, 23 mls/hr Documented by: Magnesium Sulfate (Magnesium Sulfate 4gm/100ml) 4 gm in 100 mls @ 25 mls/hr IV ONCE ONE Stop: 04/26/19 13:59 Last Admin: 04/26/19 10:27 Dose: 25 mls/hr Documented by: Ibuprofen (Ibuprofen) 600 mg PO Q6H PRN PRN Reason: Pain, Mild (1-3) Lorazepam (Ativan) 2 mg IV Q1H PRN PRN Reason: CIWA-Ar 8-15 Last Admin: 04/26/19 06:39 Dose: 2 mg Documented by: Lorazepam (Ativan) 4 mg IV Q1H PRN PRN Reason: CIWA-Ar 16-25 Last Admin: 04/26/19 10:15 Dose: 4 mg Documented by: Lorazepam (Ativan) 4 mg IV Q15MIN PRN PRN Reason: CIWA-Ar >25 Last Admin: 04/26/19 10:57 Dose: 4 mg Documented by: Losartan Potassium (Cozaar) 100 mg PO QDAY [facility] Last Admin: 04/26/19 09:16 Dose: 100 mg Documented by: Nicardipine HCl (Cardene) 30 mg PO Q8HR [facility] Ondansetron HCl (Zofran) 4 mg IV Q8H PRN PRN Reason: Nausea And Vomiting Potassium Chloride (K-Dur) 20 meq PO Q12H [facility] Last Admin: 04/26/19 09:17 Dose: 20 meq Documented by: Sodium Chloride (Sodium Chloride Flush Syringe 10 Ml) 10 ml IV BID [facility] Last Admin: 04/26/19 10:14 Dose: 10 ml Documented by: Sodium Chloride (Sodium Chloride Flush Syringe 10 Ml) 10 ml IV PRN PRN PRN Reason: LINE FLUSH Review of Systems Constitutional: no weight loss, no weight gain, no fever, no chills, no sweats Ears, nose, mouth and throat: no ear pain, no nose pain, no sinus pressure, no sinus pain Cardiovascular: palpitations, shortness of breath, dyspnea on exertion, high blood pressure, leg edema, no chest pain, no orthopnea, no syncope, no lightheadedness Respiratory: shortness of breath, dyspnea on exertion, no cough, no congestion, no wheezing, no pain on inspiration Gastrointestinal: no abdominal pain, no nausea, no vomiting, no diarrhea, no constipation, no change in bowel habits Genitourinary Male: no dysuria, no hematuria, no flank pain, no discharge, no urinary frequency, no urinary hesitancy Musculoskeletal: no neck stiffness, no neck pain, no shooting arm pain, no arm numbness/tingling, no low back pain, no shooting leg pain Integumentary: no rash, no pruritis, no redness, no sores, no wounds Neurological: no head injury, no paralysis, no weakness, no parathesias, no numbness, no tingling, no seizures, no syncope Psychiatric: no anxiety Endocrine: no cold intolerance, no heat intolerance Hematologic/Lymphatic: no easy bruising, no easy bleeding Allergic/Immunologic: no urticaria, no wheezing Physical Examination Vital Signs Pulse Resp Pulse Ox 137 H 46 H 94 04/25/19 15:34 04/25/19 15:34 04/25/19 15:34 General appearance: no acute distress, other (lethargic) Cardiac: Positive: Regular Rhythm, S1/S2, S3, Tachycardia Lungs: Positive: Decreased Breath Sounds Neuro: Positive: Other (lethargic) Abdomen: Negative: Tender Skin: Negative: Rash Musculoskeletal: No Pain Results 04/26/19 03:08 04/26/19 03:08 Cardiac Enzymes 04/25/19 04/26/19 04/26/19 Range/Units 16:00 03:08 08:04 AST 24 (5-40) units/L CK-MB (CK-2) 5.7 H 3.5 (0.0-4.0) ng/mL Coagulation 04/25/19 04/25/19 Range/Units 16:00 20:08 PT 14.6 15.1 H (12.2-14.9) Sec. INR 1.17 H 1.22 H (0.87-1.13) APTT 24.9 27.3 (24.2-36.6) Sec. Lipids 04/25/19 Range/Units 16:00 Triglycerides 71 (2-149) mg/dL Cholesterol 178 (50-199) mg/dL HDL Cholesterol 66 H (40-59) mg/dL Cholesterol/HDL Ratio 2.69 % CBC 04/25/19 04/25/19 04/26/19 Range/Units 15:55 20:08 03:08 WBC 7.9 9.1 (4.5-11.0) K/mm3 RBC 4.35 3.98 (3.65-5.03) M/mm3 Hgb 9.4 L 9.3 L 8.8 L (11.8-15.2) gm/dl Hct 30.9 L 30.3 L 27.9 L (35.5-45.6) % Plt Count 268 286 279 (140-440) K/mm3 Lymph # Mechanical Specialist [place] # Mechanical Specialist Eos # Mechanical Specialist Baso # Mechanical Specialist Comprehensive Metabolic Panel 04/25/19 04/26/19 Range/Units 15:55 03:08 Sodium 140 136 L (137-145) mmol/L Potassium 4.0 4.4 (3.6-5.0) mmol/L Chloride 102.3 98.8 (98-107) mmol/L Carbon Dioxide 14 L 21 L D (22-30) mmol/L BUN 8 L 10 (9-20) mg/dL Creatinine 0.7 L 0.8 (0.8-1.5) mg/dL Glucose 103 H 148 H (75-100) mg/dL Calcium 9.0 9.1 (8.4-10.2) mg/dL AST 24 (5-40) units/L ALT 7 (7-56) units/L Alkaline Phosphatase 123 (35-129) units/L Total Protein 8.6 H (6.3-8.2) g/dL Albumin 3.5 L (3.9-5) g/dL - Imaging and Cardiology Echo: report reviewed (03/29/2019 showed EF 45-50%, mod LVH, impaired relaxation, RA mild to mod dilated, small patent PFO, RVSP 30mmHg, mild FL.) EKG: report reviewed, image reviewed EKG interpretations - Telemetry EKG Rhythm: Sinus Tachycardia - EKG Sinus rhythms and dysrhythmias: sinus tachycardia Assessment and Plan Lexiscan MPI stress test done 04/01/2019 was negative for ischemia, EF 36%. Echo done 03/29/2019 showed EF 45-50%, mod LVH, impaired relaxation, RA mild to mod dilated, small patent PFO, RVSP 30mmHg, mild FL. Pt denies any chest pain, ECG with no acute ischemic changes. CE elevation appears c/w NSTEMI type II. D/c heparin gtt. Replete lytes PRN. Cont all other present cardiac management and titrate coreg as tolerated. The patient has been seen in conjunction with Dr. Wilkinson who agrees with the assessment and plan of care. - Patient Problems (1) Acute HFrEF (heart failure with reduced ejection fraction) Current Visit: Yes Status: Acute (2) Acute respiratory failure Current Visit: Yes Status: Acute (3) Hypertensive emergency Current Visit: Yes Status: Acute (4) NSTEMI (non-ST elevated myocardial infarction) Current Visit: Yes Status: Acute (5) Anemia Current Visit: Yes Status: Chronic Qualifiers: Anemia type: unspecified type Qualified Code(s): D64.9 - Anemia, unspecified (6) Diabetes Current Visit: Yes Status: Chronic (7) Noncompliance with medication regimen Current Visit: Yes Status: Chronic (8) PFO (patent foramen ovale) Current Visit: Yes Status: Chronic (9) SVT Current Visit: Yes Status: Suspected (10) Hypomagnesemia Current Visit: Yes Status: Suspected
--- NOTE | 2019-04-26 13:48 | Consultation ---
History of Present Illness Consult date: 04/26/19 Requesting physician: DAVID BONILLA Reason for consult: dyspnea History of present illness: 59 yo admitted with increased SOB, palpitations, increased LE edema, noncompliance with CHF meds, and SVT. He has required supplemental O2 and is now on HFNC 25LPM and 45% FiO2. He appears to be in DTs and has just received Ativan per [facility] protocol, and is thus drowsy and unable to provide a coherent history. Hx is obtained via chart review. Active Medications Acetaminophen (Tylenol) 650 mg PO Q4H PRN PRN Reason: Pain MILD(1-3)/Fever >100.5/COSTA Aspirin (Baby Aspirin) 81 mg PO QDAY [facility] Last Admin: 04/26/19 09:17 Dose: 81 mg Documented by: Atorvastatin Calcium (Lipitor) 40 mg PO QHS [facility] Last Admin: 04/25/19 22:07 Dose: 40 mg Documented by: Carvedilol (Coreg) 12.5 mg PO BID [facility] Last Admin: 04/26/19 09:16 Dose: 12.5 mg Documented by: Enoxaparin Sodium (Lovenox) 40 mg SUB-Q QDAY [facility] Furosemide (Lasix) 40 mg IV 0600,1800 [facility] Last Admin: 04/26/19 05:49 Dose: 40 mg Documented by: Hydralazine HCl (Apresoline) 50 mg PO Q8HR [facility] Last Admin: 04/26/19 09:16 Dose: 50 mg Documented by: Hydromorphone HCl (Dilaudid) 0.5 mg IV Q3H PRN PRN Reason: Pain , Severe (7-10) Last Admin: 04/26/19 11:10 Dose: 0.5 mg Documented by: Nitroglycerin/Dextrose (Tridil Drip 50mg/250ml) 50 mg in 250 mls @ 3 mls/hr IV TITR ONE; Protocol Stop: 04/29/19 03:43 Last Titration: 04/25/19 19:37 Dose: 85 mcg/min, 25.5 mls/hr Documented by: Magnesium Sulfate (Magnesium Sulfate 4gm/100ml) 4 gm in 100 mls @ 25 mls/hr IV ONCE ONE Stop: 04/26/19 13:59 Last Admin: 04/26/19 10:27 Dose: 25 mls/hr Documented by: Lorazepam (Ativan) 2 mg IV Q1H PRN PRN Reason: CIWA-Ar 8-15 Last Admin: 04/26/19 06:39 Dose: 2 mg Documented by: Lorazepam (Ativan) 4 mg IV Q1H PRN PRN Reason: CIWA-Ar 16-25 Last Admin: 04/26/19 10:15 Dose: 4 mg Documented by: Lorazepam (Ativan) 4 mg IV Q15MIN PRN PRN Reason: CIWA-Ar >25 Last Admin: 04/26/19 10:57 Dose: 4 mg Documented by: Losartan Potassium (Cozaar) 100 mg PO QDAY [facility] Last Admin: 04/26/19 09:16 Dose: 100 mg Documented by: Nicardipine HCl (Cardene) 30 mg PO Q8HR [facility] Ondansetron HCl (Zofran) 4 mg IV Q8H PRN PRN Reason: Nausea And Vomiting Potassium Chloride (K-Dur) 20 meq PO Q12H [facility] Last Admin: 04/26/19 09:17 Dose: 20 meq Documented by: Sodium Chloride (Sodium Chloride Flush Syringe 10 Ml) 10 ml IV BID [facility] Last Admin: 04/26/19 10:14 Dose: 10 ml Documented by: Sodium Chloride (Sodium Chloride Flush Syringe 10 Ml) 10 ml IV PRN PRN PRN Reason: LINE FLUSH Past History Past Medical History: diabetes, heart failure, hypertension Social history: alcohol abuse, full code. denies: smoking, prescription drug abuse, IV drug use Family history: other (unable to obtain) Medications and Allergies Allergies Allergy/AdvReac Type Severity Reaction Status Date / Time No Known Allergies Allergy Verified 03/29/19 16:43 Home Medications Medication Instructions Recorded Confirmed Last Taken Type Aspirin [Aspirin BABY CHEW TAB] 81 mg PO QDAY #30 tab.chew 04/01/19 04/25/19 03/26/19 Rx AtorvaSTATin [Lipitor] 40 mg PO QHS #30 tablet 04/01/19 04/25/19 03/26/19 Rx Furosemide [Lasix TAB] 40 mg PO BID #60 tablet 04/01/19 04/25/19 03/26/19 Rx Losartan [Cozaar] 100 mg PO QDAY #30 tablet 04/01/19 04/25/19 03/26/19 Rx Active Meds: Active Medications Acetaminophen (Tylenol) 650 mg PO Q4H PRN PRN Reason: Pain MILD(1-3)/Fever >100.5/COSTA Aspirin (Baby Aspirin) 81 mg PO QDAY [facility] Last Admin: 04/26/19 09:17 Dose: 81 mg Documented by: Atorvastatin Calcium (Lipitor) 40 mg PO QHS [facility] Last Admin: 04/25/19 22:07 Dose: 40 mg Documented by: Carvedilol (Coreg) 12.5 mg PO BID [facility] Last Admin: 04/26/19 09:16 Dose: 12.5 mg Documented by: Enoxaparin Sodium (Lovenox) 40 mg SUB-Q QDAY [facility] Furosemide (Lasix) 40 mg IV 0600,1800 [facility] Last Admin: 04/26/19 05:49 Dose: 40 mg Documented by: Hydralazine HCl (Apresoline) 50 mg PO Q8HR [facility] Last Admin: 04/26/19 09:16 Dose: 50 mg Documented by: Hydromorphone HCl (Dilaudid) 0.5 mg IV Q3H PRN PRN Reason: Pain , Severe (7-10) Last Admin: 04/26/19 11:10 Dose: 0.5 mg Documented by: Nitroglycerin/Dextrose (Tridil Drip 50mg/250ml) 50 mg in 250 mls @ 3 mls/hr IV TITR ONE; Protocol Stop: 04/29/19 03:43 Last Titration: 04/25/19 19:37 Dose: 85 mcg/min, 25.5 mls/hr Documented by: Magnesium Sulfate (Magnesium Sulfate 4gm/100ml) 4 gm in 100 mls @ 25 mls/hr IV ONCE ONE Stop: 04/26/19 13:59 Last Admin: 04/26/19 10:27 Dose: 25 mls/hr Documented by: Lorazepam (Ativan) 2 mg IV Q1H PRN PRN Reason: CIWA-Ar 8-15 Last Admin: 04/26/19 06:39 Dose: 2 mg Documented by: Lorazepam (Ativan) 4 mg IV Q1H PRN PRN Reason: CIWA-Ar 16-25 Last Admin: 04/26/19 10:15 Dose: 4 mg Documented by: Lorazepam (Ativan) 4 mg IV Q15MIN PRN PRN Reason: CIWA-Ar >25 Last Admin: 04/26/19 10:57 Dose: 4 mg Documented by: Losartan Potassium (Cozaar) 100 mg PO QDAY [facility] Last Admin: 04/26/19 09:16 Dose: 100 mg Documented by: Nicardipine HCl (Cardene) 30 mg PO Q8HR [facility] Ondansetron HCl (Zofran) 4 mg IV Q8H PRN PRN Reason: Nausea And Vomiting Potassium Chloride (K-Dur) 20 meq PO Q12H [facility] Last Admin: 04/26/19 09:17 Dose: 20 meq Documented by: Sodium Chloride (Sodium Chloride Flush Syringe 10 Ml) 10 ml IV BID [facility] Last Admin: 04/26/19 10:14 Dose: 10 ml Documented by: Sodium Chloride (Sodium Chloride Flush Syringe 10 Ml) 10 ml IV PRN PRN PRN Reason: LINE FLUSH Review of Systems ROS unobtainable: due to mental status Physical Examination Vital signs: Vital Signs Pulse Resp Pulse Ox 137 H 46 H 94 04/25/19 15:34 04/25/19 15:34 04/25/19 15:34 Vital Signs - 24 hr 04/25/19 04/25/19 04/25/19 15:34 15:42 15:45 Temperature 98.0 F Pulse Rate 137 H 127 H 127 H Pulse Rate [ From Monitor] Respiratory 46 H 40 H 16 Rate Blood Pressure 180/126 180/123 O2 Sat by Pulse 94 98 95 Oximetry 04/25/19 04/25/19 04/25/19 16:00 16:15 16:30 Temperature Pulse Rate 123 H 129 H 130 H Pulse Rate [ From Monitor] Respiratory 16 20 19 Rate Blood Pressure 180/123 184/123 175/124 O2 Sat by Pulse 94 94 97 Oximetry 04/25/19 04/25/19 04/25/19 16:45 17:01 17:05 Temperature Pulse Rate 140 H 145 H 138 H Pulse Rate [ From Monitor] Respiratory 35 H 30 H 25 H Rate Blood Pressure 200/140 200/140 200/140 O2 Sat by Pulse 97 99 95 Oximetry 04/25/19 04/25/19 04/25/19 17:11 17:15 17:21 Temperature Pulse Rate 158 H 141 H 142 H Pulse Rate [ From Monitor] Respiratory 45 H 17 22 Rate Blood Pressure 198/139 181/128 194/138 O2 Sat by Pulse 96 97 100 Oximetry 04/25/19 04/25/19 04/25/19 17:24 17:25 17:31 Temperature Pulse Rate 149 H 139 H 146 H Pulse Rate [ From Monitor] Respiratory 19 21 35 H Rate Blood Pressure 188/131 188/131 193/136 O2 Sat by Pulse 99 100 100 Oximetry 04/25/19 04/25/19 04/25/19 17:35 17:40 17:45 Temperature Pulse Rate 139 H 142 H 150 H Pulse Rate [ From Monitor] Respiratory 47 H 21 17 Rate Blood Pressure 205/143 200/148 198/143 O2 Sat by Pulse 88 99 100 Oximetry 04/25/19 04/25/19 04/25/19 17:50 17:55 18:01 Temperature Pulse Rate 139 H 135 H 145 H Pulse Rate [ From Monitor] Respiratory 24 20 25 H Rate Blood Pressure 193/142 178/133 189/139 O2 Sat by Pulse 100 97 97 Oximetry 04/25/19 04/25/19 04/25/19 18:05 18:10 18:15 Temperature Pulse Rate 140 H 134 H 139 H Pulse Rate [ From Monitor] Respiratory 28 H 33 H 36 H Rate Blood Pressure 192/144 179/130 187/135 O2 Sat by Pulse 99 98 99 Oximetry 04/25/19 04/25/19 04/25/19 18:20 18:25 18:30 Temperature Pulse Rate 133 H 134 H 140 H Pulse Rate [ From Monitor] Respiratory 33 H 33 H 36 H Rate Blood Pressure 185/134 176/136 194/136 O2 Sat by Pulse 98 98 98 Oximetry 04/25/19 04/25/19 04/25/19 18:35 18:40 18:45 Temperature Pulse Rate 134 H 136 H 137 H Pulse Rate [ From Monitor] Respiratory 35 H 24 34 H Rate Blood Pressure 182/132 177/129 179/130 O2 Sat by Pulse 96 97 97 Oximetry 04/25/19 04/25/19 04/25/19 18:50 18:55 19:00 Temperature Pulse Rate 133 H 146 H 133 H Pulse Rate [ From Monitor] Respiratory 19 32 H 35 H Rate Blood Pressure 179/130 179/130 184/133 O2 Sat by Pulse 98 99 97 Oximetry 04/25/19 04/25/19 04/25/19 19:05 19:10 19:15 Temperature Pulse Rate 139 H 143 H 142 H Pulse Rate [ From Monitor] Respiratory 21 22 30 H Rate Blood Pressure 184/133 181/136 177/124 O2 Sat by Pulse 100 99 98 Oximetry 04/25/19 04/25/19 04/25/19 19:20 19:25 19:27 Temperature Pulse Rate 136 H 141 H 141 H Pulse Rate [ From Monitor] Respiratory 15 18 22 Rate Blood Pressure 180/131 181/136 181/136 O2 Sat by Pulse 100 99 100 Oximetry 04/25/19 04/25/19 04/25/19 19:30 19:31 19:33 Temperature Pulse Rate 135 H 134 H Pulse Rate [ From Monitor] Respiratory 18 39 H Rate Blood Pressure 183/134 181/136 O2 Sat by Pulse 99 99 99 Oximetry 04/25/19 04/25/19 04/25/19 19:50 20:00 20:10 Temperature 97.5 F L Pulse Rate 142 H 138 H 139 H Pulse Rate [ From Monitor] Respiratory 20 43 H 41 H Rate Blood Pressure 189/143 185/132 O2 Sat by Pulse 95 100 100 Oximetry 04/25/19 04/25/19 04/25/19 20:14 20:20 20:30 Temperature Pulse Rate 138 H 137 H 138 H Pulse Rate [ From Monitor] Respiratory 42 H 39 H Rate Blood Pressure 185/132 185/132 178/132 O2 Sat by Pulse 100 100 Oximetry 04/25/19 04/25/19 04/25/19 20:37 20:40 20:50 Temperature Pulse Rate 138 H 137 H 139 H Pulse Rate [ From Monitor] Respiratory 38 H 35 H 32 H Rate Blood Pressure 174/129 174/129 172/131 O2 Sat by Pulse 96 96 99 Oximetry 04/25/19 04/25/19 04/25/19 21:00 21:10 21:20 Temperature Pulse Rate 132 H 140 H 141 H Pulse Rate [ From Monitor] Respiratory 26 H 34 H 33 H Rate Blood Pressure 172/122 180/130 175/126 O2 Sat by Pulse 97 99 98 Oximetry 04/25/19 04/25/19 04/25/19 21:30 21:40 21:50 Temperature Pulse Rate 142 H 145 H 139 H Pulse Rate [ From Monitor] Respiratory 33 H 32 H 36 H Rate Blood Pressure 178/119 185/136 186/138 O2 Sat by Pulse 96 96 97 Oximetry 04/25/19 04/25/19 04/25/19 22:00 22:10 22:20 Temperature Pulse Rate 135 H 136 H 138 H Pulse Rate [ From Monitor] Respiratory 33 H 34 H 21 Rate Blood Pressure 191/134 177/124 177/125 O2 Sat by Pulse 95 95 97 Oximetry 04/25/19 04/25/19 04/25/19 22:30 22:40 22:50 Temperature Pulse Rate 133 H 133 H 135 H Pulse Rate [ From Monitor] Respiratory 35 H 35 H 37 H Rate Blood Pressure 185/116 176/126 171/121 O2 Sat by Pulse 96 95 94 Oximetry 04/25/19 04/25/19 04/25/19 23:00 23:10 23:20 Temperature Pulse Rate 134 H 133 H 132 H Pulse Rate [ From Monitor] Respiratory 46 H 35 H 54 H Rate Blood Pressure 173/124 167/121 173/118 O2 Sat by Pulse 96 95 99 Oximetry 04/25/19 04/25/19 04/25/19 23:30 23:40 23:50 Temperature Pulse Rate 133 H 133 H 133 H Pulse Rate [ From Monitor] Respiratory 24 21 23 Rate Blood Pressure 173/129 163/122 170/119 O2 Sat by Pulse 97 100 99 Oximetry 04/26/19 04/26/19 04/26/19 00:00 00:10 00:20 Temperature 97.6 F Pulse Rate 134 H 136 H 136 H Pulse Rate [ From Monitor] Respiratory 19 26 H 20 Rate Blood Pressure 176/122 172/123 177/125 O2 Sat by Pulse 97 98 97 Oximetry 04/26/19 04/26/19 04/26/19 00:30 00:40 00:50 Temperature Pulse Rate 129 H 111 H 108 H Pulse Rate [ From Monitor] Respiratory 31 H 30 H 22 Rate Blood Pressure 169/94 151/114 141/106 O2 Sat by Pulse 99 93 99 Oximetry 04/26/19 04/26/19 04/26/19 01:00 01:10 01:20 Temperature Pulse Rate 109 H 110 H 112 H Pulse Rate [ From Monitor] Respiratory 18 21 26 H Rate Blood Pressure 142/104 151/108 146/114 O2 Sat by Pulse 100 98 100 Oximetry 04/26/19 04/26/19 04/26/19 01:30 01:40 01:50 Temperature Pulse Rate 112 H 115 H 116 H Pulse Rate [ From Monitor] Respiratory 18 29 H 26 H Rate Blood Pressure 154/105 154/111 159/107 O2 Sat by Pulse 99 98 98 Oximetry 04/26/19 04/26/19 04/26/19 02:00 02:10 02:20 Temperature Pulse Rate 118 H 116 H 118 H Pulse Rate [ From Monitor] Respiratory 28 H 36 H 29 H Rate Blood Pressure 162/109 163/113 164/116 O2 Sat by Pulse 99 97 93 Oximetry 04/26/19 04/26/19 04/26/19 02:30 02:40 02:50 Temperature Pulse Rate 121 H 122 H 125 H Pulse Rate [ From Monitor] Respiratory 27 H 16 30 H Rate Blood Pressure 160/117 149/113 178/124 O2 Sat by Pulse 94 95 94 Oximetry 04/26/19 04/26/19 04/26/19 03:00 03:10 03:20 Temperature Pulse Rate 124 H 129 H 130 H Pulse Rate [ From Monitor] Respiratory 25 H 34 H 32 H Rate Blood Pressure 170/118 170/118 204/84 O2 Sat by Pulse 99 98 97 Oximetry 04/26/19 04/26/19 04/26/19 03:30 03:40 03:50 Temperature Pulse Rate 130 H 117 H 119 H Pulse Rate [ From Monitor] Respiratory 45 H 30 H 30 H Rate Blood Pressure 168/118 178/116 161/112 O2 Sat by Pulse 98 93 97 Oximetry 04/26/19 04/26/19 04/26/19 03:51 04:00 04:10 Temperature 98.3 F Pulse Rate 120 H 119 H Pulse Rate [ From Monitor] Respiratory 34 H 35 H Rate Blood Pressure 167/106 165/113 O2 Sat by Pulse 98 98 Oximetry 04/26/19 04/26/19 04/26/19 04:20 04:30 04:40 Temperature Pulse Rate 121 H 120 H 120 H Pulse Rate [ From Monitor] Respiratory 26 H 28 H 30 H Rate Blood Pressure 169/114 170/118 157/117 O2 Sat by Pulse 98 97 95 Oximetry 04/26/19 04/26/19 04/26/19 04:50 05:00 05:10 Temperature Pulse Rate 126 H 142 H 128 H Pulse Rate [ From Monitor] Respiratory 22 35 H 25 H Rate Blood Pressure 157/117 157/117 157/117 O2 Sat by Pulse Oximetry 04/26/19 04/26/19 04/26/19 05:20 05:30 05:40 Temperature Pulse Rate 125 H 128 H 128 H Pulse Rate [ From Monitor] Respiratory 40 H 39 H 38 H Rate Blood Pressure 173/113 173/120 173/120 O2 Sat by Pulse 91 92 90 Oximetry 04/26/19 04/26/19 04/26/19 05:50 06:00 06:10 Temperature Pulse Rate 139 H 136 H 136 H Pulse Rate [ From Monitor] Respiratory 31 H 35 H 27 H Rate Blood Pressure 173/120 173/120 171/112 O2 Sat by Pulse 97 95 93 Oximetry 04/26/19 04/26/19 04/26/19 06:20 06:30 06:40 Temperature Pulse Rate 136 H 127 H 124 H Pulse Rate [ From Monitor] Respiratory 27 H 41 H 30 H Rate Blood Pressure 171/112 171/112 171/112 O2 Sat by Pulse 97 97 Oximetry 04/26/19 04/26/19 04/26/19 06:50 07:00 07:10 Temperature Pulse Rate 130 H 117 H 115 H Pulse Rate [ From Monitor] Respiratory 30 H 46 H 48 H Rate Blood Pressure 156/108 156/108 147/101 O2 Sat by Pulse 96 93 93 Oximetry 04/26/19 04/26/19 04/26/19 07:20 07:30 07:40 Temperature Pulse Rate 116 H 118 H 117 H Pulse Rate [ From Monitor] Respiratory 45 H 44 H 35 H Rate Blood Pressure 156/108 156/108 139/94 O2 Sat by Pulse 93 93 91 Oximetry 04/26/19 04/26/19 04/26/19 07:50 08:00 08:10 Temperature 98.9 F Pulse Rate 118 H 124 H 121 H Pulse Rate [ 118 H From Monitor] Respiratory 44 H 22 45 H Rate Blood Pressure 139/94 139/94 148/100 O2 Sat by Pulse 92 92 94 Oximetry 04/26/19 04/26/19 04/26/19 08:20 08:30 08:40 Temperature Pulse Rate 120 H 120 H 118 H Pulse Rate [ From Monitor] Respiratory 44 H 43 H 41 H Rate Blood Pressure 139/94 139/94 139/95 O2 Sat by Pulse 95 95 95 Oximetry 04/26/19 04/26/19 04/26/19 08:50 09:00 09:10 Temperature Pulse Rate 118 H 132 H 123 H Pulse Rate [ From Monitor] Respiratory 42 H 26 H 53 H Rate Blood Pressure 139/95 139/95 165/100 O2 Sat by Pulse 95 94 96 Oximetry 04/26/19 04/26/19 04/26/19 09:16 09:20 09:30 Temperature Pulse Rate 125 H 125 H 123 H Pulse Rate [ From Monitor] Respiratory 51 H 43 H Rate Blood Pressure 165/100 165/100 165/100 O2 Sat by Pulse 98 98 Oximetry 04/26/19 04/26/19 04/26/19 09:40 09:50 10:00 Temperature Pulse Rate 123 H 124 H 143 H Pulse Rate [ From Monitor] Respiratory 35 H 44 H 19 Rate Blood Pressure 149/109 147/108 147/108 O2 Sat by Pulse 96 95 Oximetry 04/26/19 04/26/19 04/26/19 10:10 10:20 10:30 Temperature Pulse Rate 136 H 132 H 140 H Pulse Rate [ From Monitor] Respiratory 20 26 H 37 H Rate Blood Pressure 147/108 147/108 147/108 O2 Sat by Pulse 95 96 97 Oximetry 04/26/19 04/26/19 04/26/19 10:40 10:50 11:00 Temperature Pulse Rate 134 H 127 H 131 H Pulse Rate [ From Monitor] Respiratory 24 24 48 H Rate Blood Pressure 147/108 147/108 150/114 O2 Sat by Pulse 98 96 97 Oximetry 04/26/19 04/26/19 04/26/19 11:10 11:20 11:30 Temperature Pulse Rate 130 H 120 H 117 H Pulse Rate [ From Monitor] Respiratory 23 48 H 43 H Rate Blood Pressure 150/114 161/96 161/96 O2 Sat by Pulse 97 92 93 Oximetry 04/26/19 04/26/19 04/26/19 11:40 11:50 11:55 Temperature 98.4 F Pulse Rate 116 H 116 H Pulse Rate [ From Monitor] Respiratory 45 H 42 H Rate Blood Pressure 119/80 119/80 O2 Sat by Pulse 90 92 Oximetry 04/26/19 04/26/19 04/26/19 12:00 12:10 12:20 Temperature Pulse Rate 116 H 115 H 115 H Pulse Rate [ 115 H From Monitor] Respiratory 41 H 41 H 39 H Rate Blood Pressure 119/80 110/71 110/71 O2 Sat by Pulse 91 92 91 Oximetry 04/26/19 04/26/19 04/26/19 12:30 12:40 12:50 Temperature Pulse Rate 115 H 114 H 114 H Pulse Rate [ From Monitor] Respiratory 41 H 40 H 40 H Rate Blood Pressure 114/83 114/83 114/83 O2 Sat by Pulse 91 92 92 Oximetry 04/26/19 04/26/19 04/26/19 13:00 13:10 13:20 Temperature Pulse Rate 116 H 115 H 115 H Pulse Rate [ From Monitor] Respiratory 42 H 41 H 43 H Rate Blood Pressure 114/83 136/104 136/104 O2 Sat by Pulse 94 93 92 Oximetry General appearance: asleep, other (mild distress) Eyes: non-icteric ENT: oropharynx moist Neck: supple Effort: mildly labored (tachypneic but no accessory muscle usage) Ascultation: Bilateral: rhonchi (mild bilateral rhonchi) Cardiovascular: other (tachy, RR; no mrg) Gastrointestinal: normoactive bowel sounds, non-distended Integumentary: normal Extremities: no cyanosis, no edema, pink and warm non-focal exam other (sedated) Results - Laboratory Findings CBC and BMP: 04/26/19 03:08 04/26/19 03:08 ABG POC ABG pH 7.338 (7.35-7.45) L 04/25/19 18:19 POC ABG pCO2 30.7 (35-45) L 04/25/19 18:19 POC ABG pO2 165 (80-105) H 04/25/19 18:19 POC ABG HCO3 16.5 (22-26 mml/L) 04/25/19 18:19 POC ABG Total CO2 17 (23-27mmol/L) 04/25/19 18:19 POC ABG O2 Sat 99 04/25/19 18:19 PT/INR, D-dimer PT 15.1 Sec. (12.2-14.9) H 04/25/19 20:08 INR 1.22 (0.87-1.13) H 04/25/19 20:08 Abnormal lab findings: Abnormal Labs 04/25/19 04/25/19 04/25/19 15:55 15:55 16:00 Hgb 9.4 L Hct 30.9 L MCV 71 L MCH 22 L MCHC 31 L RDW 25.5 H Seg Neuts % (Manual) 72.0 H Lymphocytes % (Manual) Monocytes % (Manual) 8.0 H Basophils % (Manual) 2.0 H Lymphocytes # (Manual) Basophils # (Manual) 0.2 H PT INR 1.17 H Heparin Anti-Xa Level POC ABG pH POC ABG pCO2 POC ABG pO2 Sodium Carbon Dioxide 14 L BUN 8 L Creatinine 0.7 L Glucose 103 H Magnesium Total Bilirubin Total Creatine Kinase CK-MB (CK-2) Troponin T Total Protein Albumin HDL Cholesterol 04/25/19 04/25/19 04/25/19 16:00 18:19 20:08 Hgb 9.3 L Hct 30.3 L MCV MCH MCHC RDW Seg Neuts % (Manual) Lymphocytes % (Manual) Monocytes % (Manual) Basophils % (Manual) Lymphocytes # (Manual) Basophils # (Manual) PT INR Heparin Anti-Xa Level POC ABG pH 7.338 L POC ABG pCO2 30.7 L POC ABG pO2 165 H Sodium Carbon Dioxide BUN Creatinine Glucose Magnesium 1.20 L Total Bilirubin Total Creatine Kinase 196 H CK-MB (CK-2) 5.7 H Troponin T 0.141 H* Total Protein Albumin HDL Cholesterol 66 H 04/25/19 04/26/19 04/26/19 20:08 03:08 03:08 Hgb 8.8 L Hct 27.9 L MCV 70 L MCH 22 L MCHC RDW 24.6 H Seg Neuts % (Manual) 85.0 H Lymphocytes % (Manual) 11.0 L Monocytes % (Manual) Basophils % (Manual) Lymphocytes # (Manual) 1.0 L Basophils # (Manual) PT 15.1 H INR 1.22 H Heparin Anti-Xa Level POC ABG pH POC ABG pCO2 POC ABG pO2 Sodium 136 L Carbon Dioxide 21 L D BUN Creatinine Glucose 148 H Magnesium Total Bilirubin 1.50 H Total Creatine Kinase CK-MB (CK-2) Troponin T Total Protein 8.6 H Albumin 3.5 L HDL Cholesterol 04/26/19 04/26/19 03:08 08:04 Hgb Hct MCV MCH MCHC RDW Seg Neuts % (Manual) Lymphocytes % (Manual) Monocytes % (Manual) Basophils % (Manual) Lymphocytes # (Manual) Basophils # (Manual) PT INR Heparin Anti-Xa Level < 0.10 L POC ABG pH POC ABG pCO2 POC ABG pO2 Sodium Carbon Dioxide BUN Creatinine Glucose Magnesium 1.50 L Total Bilirubin Total Creatine Kinase 205 H CK-MB (CK-2) Troponin T Total Protein Albumin HDL Cholesterol - Diagnostic Findings Chest x-ray: report reviewed, image reviewed (Borderline CM with increased pulmonary edema) Assessment and Plan Imp: 1. NICMP, ? EtOH-related 2. A/C systolic CHF -> due to medical noncompliance and EtOH abuse 3. Acute respiratory failure, hypoxia 2/2 above 4. DTs 5. Chronic EtOH abuse Rec: 1. IV Lasix 2. BP optimization 3. CIWA protocol 4. Aspiration precautions/HOB elevation 5. Wean off HFNC to keep sats 88% or greater; use BIPAP prn and monitor mentation closely 6. Off heparin drip; add DVT PPx 7. Mag repleted 8. Prognosis is guarded; no family present Thanks for the consult. Will follow w/ you.
[2019-04-26] MEDS: LOVENOX SUB-Q SCH (14:28)
[2019-04-26] MEDS: CARDENE PO SCH ×2 (14:29→22:00)
[2019-04-26] MEDS: SODIUM CHLORIDE FLUSH SYRINGE 10 ML IV PRN ×2 (19:07→20:29)
[2019-04-27] MEDS: APRESOLINE IV SCH ×3 (02:00→12:45)
--- NOTE | 2019-04-27 03:02 | XRay Report ---
CHEST 1 VIEW INDICATION: CHF. COMPARISON: 2 days prior FINDINGS: Support devices: None. Heart: Stable. Lungs/Pleura: Mild pulmonary edema persists. No significant effusion. IMPRESSION: 1. No significant change. Signer Name: Jimi Bradshaw MD Signed: 04/27/2019 2:57 AM Workstation Name: [id number]
[2019-04-27 05:07] LABS: Hematocrit 24.6 % (35.5-45.6); Hemoglobin 7.8 gm/dl (11.8-15.2); Mean Corpuscular HGB Conc 32 % (32-34); Mean Corpuscular Volume 71 fl (84-94); Platelet Count 217 K/mm3 (140-440); Red Blood Count 3.47 M/mm3 (3.65-5.03)
[2019-04-27 05:11] LABS: Red Cell Distribution Width 25.2 % (13.2-15.2)
[2019-04-27 05:29] LABS: Alanine Aminotransferase 6 units/L (7-56); Albumin 3.1 g/dL (3.9-5); BUN/Creatinine Ratio 11; Blood Urea Nitrogen 13 mg/dL (9-20); Calcium 8.8 mg/dL (8.4-10.2); Hemolysis Index 1
[2019-04-27] MEDS: CARDENE PO SCH ×2 (06:00→16:10)
[2019-04-27 06:30] LABS: Anisocytosis 2+; Basophils % (Manual) 0 % (0.0-1.8); Hypochromasia 1+; Poikilocytosis Few; Total Cells Counted 100
[2019-04-27 06:31] LABS: Platelet Estimate Consistent w Auto; Target Cells 1+
[2019-04-27] MEDS: LASIX IV SCH ×2 (07:37→17:48)
[2019-04-27] MEDS: LOVENOX SUB-Q SCH (10:34)
[2019-04-27] MEDS: SODIUM CHLORIDE FLUSH SYRINGE 10 ML IV SCH ×3 (10:38→23:11)
[2019-04-27] MEDS: K-DUR PO SCH ×2 (10:39→22:02)
[2019-04-27] MEDS ORDERED: ATIVAN IV PRN ×2 (11:03→11:17)
--- NOTE | 2019-04-27 11:07 | Progress Note ---
Assessment and Plan Lexiscan MPI stress test done 04/01/2019 was negative for ischemia, EF 36%. Echo done 03/29/2019 showed EF 45-50%, mod LVH, impaired relaxation, RA mild to mod dilated, small patent PFO, RVSP 30mmHg, mild CA. Pt denies any chest pain, ECG with no acute ischemic changes. CE elevation appears c/w NSTEMI type II. Replete lytes PRN. Increase coreg for BP and HR optimization, cont all other present cardiac management. The patient has been seen in conjunction with Dr. Wilkinson who agrees with the assessment and plan of care. - Patient Problems (1) Acute HFrEF (heart failure with reduced ejection fraction) Current Visit: Yes Status: Acute (2) Acute respiratory failure Current Visit: Yes Status: Acute (3) Hypertensive emergency Current Visit: Yes Status: Acute (4) NSTEMI (non-ST elevated myocardial infarction) Current Visit: Yes Status: Acute (5) Anemia Current Visit: Yes Status: Chronic Qualifiers: Anemia type: unspecified type Qualified Code(s): D64.9 - Anemia, unspecified (6) Diabetes Current Visit: Yes Status: Chronic (7) Noncompliance with medication regimen Current Visit: Yes Status: Chronic (8) PFO (patent foramen ovale) Current Visit: Yes Status: Chronic (9) SVT Current Visit: Yes Status: Suspected (10) Hypomagnesemia Current Visit: Yes Status: Acute (11) Altered mental status Current Visit: Yes Status: Acute Subjective Date of service: 04/27/19 Principal diagnosis: hf; HTN; ams Interval history: pt resting in bed, lethargic, restrained. in SR/ST on telemetry. Objective Last Vital Signs Temp 98.3 F 04/27/19 08:00 Pulse 105 H 04/27/19 07:10 Resp 22 04/27/19 07:10 BP 128/95 04/27/19 07:10 Pulse Ox 96 04/27/19 07:10 - Physical Examination General: Other (lethargic, restrained) HEENT: Positive: PERRL Neck: Positive: neck supple, trachea midline Cardiac: Positive: Regular Rhythm, S1/S2 Lungs: Positive: Decreased Breath Sounds Neuro: Positive: Other (lethargic) Abdomen: Negative: Tender Skin: Negative: Rash Musculoskeletal: No Pain - Labs and Meds Cardiac Enzymes 04/27/19 Range/Units 04:18 AST 21 (5-40) units/L CBC 04/27/19 Range/Units 04:18 WBC 5.5 (4.5-11.0) K/mm3 RBC 3.47 L (3.65-5.03) M/mm3 Hgb 7.8 L (11.8-15.2) gm/dl Hct 24.6 L (35.5-45.6) % Plt Count 217 (140-440) K/mm3 Comprehensive Metabolic Panel 04/27/19 Range/Units 04:18 Sodium 141 (137-145) mmol/L Potassium 3.8 (3.6-5.0) mmol/L Chloride 103.0 (98-107) mmol/L Carbon Dioxide 26 (22-30) mmol/L BUN 13 (9-20) mg/dL Creatinine 1.2 (0.8-1.5) mg/dL Glucose 102 H (75-100) mg/dL Calcium 8.8 (8.4-10.2) mg/dL AST 21 (5-40) units/L ALT 6 L (7-56) units/L Alkaline Phosphatase 90 (35-129) units/L Total Protein 7.3 (6.3-8.2) g/dL Albumin 3.1 L (3.9-5) g/dL - Imaging and Cardiology EKG: report reviewed, image reviewed Echo: report reviewed (03/29/2019 showed EF 45-50%, mod LVH, impaired relaxation, RA mild to mod dilated, small patent PFO, RVSP 30mmHg, mild CA.) - Telemetry EKG Rhythm: Sinus Tachycardia - EKG Sinus rhythms and dysrhythmias: sinus tachycardia
--- NOTE | 2019-04-27 11:10 | Progress Note ---
Assessment and Plan Assessment and plan: --Hypertensive emergency; present on admission ,off Tridil drip blood pressures moderate control resume multiple home antihypertensives When necessary hydralazine --Acute systolic congestive heart failure; anti-failure medications, diuretics, beta blockers, umm inhibitors Input output output monitoring fluid restriction --Non-SETMI; positive troponins/ probably type2 Aspirin and beta blockers and umm inhibitors and nitrates statins off heparin drip, patient had recent negative stress test --Supraventricular tachycardia; sinus rhythm Multiple doses of adenosine, on beta yanick Cardiology consultation --Anemia; hemoglobin 7.8, no external evidence of bleeding Stool for occult blood, iron panel, monitor H&H --Alcohol withdrawal symptoms; continue CIWA protocol DC CIWA, Ativan as needed for agitation, Restraints for safety, general counsel the patient to quit alcohol intake when he is more alert --Dyslipidemia; continue statin --DVT prophylaxis; Lovenox Monitor closely and adjust the management as needed Plan of care reviewed with the patient's nurse Critical care time 32 minutes History Interval history: Patient seen and evaluated this morning in ICU medical records reviewed Patient was sedated per CIWA protocol, However easily awakes Blood pressures and heart rate reasonably controlled Vital signs noted Hospitalist Physical - Constitutional Vitals: Temp Pulse Resp BP Pulse Ox 98.3 F 105 H 22 128/95 96 04/27/19 08:00 04/27/19 07:10 04/27/19 07:10 04/27/19 07:10 04/27/19 07:10 General appearance: Present: no acute distress, well-nourished, other (alert and awake ) - EENT Eyes: Present: PERRL, EOM intact - Neck Neck: Present: supple, normal ROM - Respiratory Respiratory effort: normal Respiratory: bilateral: diminished, negative: rales, rhonchi, wheezing - Cardiovascular Rhythm: regular Heart Sounds: Present: S1 & S2 - Extremities Extremities: no ischemia, No edema - Abdominal General gastrointestinal: soft, non-tender, non-distended, normal bowel sounds - Integumentary Integumentary: Present: clear, warm - Psychiatric Psychiatric: appropriate mood/affect, cooperative - Neurologic Neurologic: CNII-XII intact, moves all extremities Results - Labs CBC & Chem 7: 04/27/19 04:18 04/27/19 04:18 Labs: Laboratory Last Values WBC 5.5 K/mm3 (4.5-11.0) 04/27/19 04:18 RBC 3.47 M/mm3 (3.65-5.03) L 04/27/19 04:18 Hgb 7.8 gm/dl (11.8-15.2) L 04/27/19 04:18 Hct 24.6 % (35.5-45.6) L 04/27/19 04:18 MCV 71 fl (84-94) L 04/27/19 04:18 MCH 22 pg (28-32) L 04/27/19 04:18 MCHC 32 % (32-34) 04/27/19 04:18 RDW 25.2 % (13.2-15.2) H 04/27/19 04:18 Plt Count 217 K/mm3 (140-440) 04/27/19 04:18 Lymph % (Auto) Mop Man 04/25/19 15:55 Taylor % (Auto) Mop Man 04/25/19 15:55 Eos % (Auto) Mop Man 04/25/19 15:55 Baso % (Auto) Mop Man 04/25/19 15:55 Lymph # Mop Man 04/25/19 15:55 Taylor # Mop Man 04/25/19 15:55 Eos # Mop Man 04/25/19 15:55 Baso # Mop Man 04/25/19 15:55 Add Manual Diff Complete 04/27/19 04:18 Total Counted 100 04/27/19 04:18 Seg Neutrophils % Mop Man 04/25/19 15:55 Seg Neuts % (Manual) 80.0 % (40.0-70.0) H 04/27/19 04:18 0 % 04/27/19 04:18 14.0 % (13.4-35.0) 04/27/19 04:18 Reactive Lymphs % (Man) 0 % 04/27/19 04:18 5.0 % (0.0-7.3) 04/27/19 04:18 1.0 % (0.0-4.3) 04/27/19 04:18 0 % (0.0-1.8) 04/27/19 04:18 0 % 04/27/19 04:18 0 % 04/27/19 04:18 0 % 04/27/19 04:18 0 % 04/27/19 04:18 Nucleated RBC % Not Reportable 04/27/19 04:18 Seg Neutrophils # Mop Man 04/25/19 15:55 Seg Neutrophils # Man 4.4 K/mm3 (1.8-7.7) 04/27/19 04:18 Band Neutrophils # 0.0 K/mm3 04/27/19 04:18 0.8 K/mm3 (1.2-5.4) L 04/27/19 04:18 Abs React Lymphs (Man) 0.0 K/mm3 04/27/19 04:18 0.3 K/mm3 (0.0-0.8) 04/27/19 04:18 0.1 K/mm3 (0.0-0.4) 04/27/19 04:18 0.0 K/mm3 (0.0-0.1) 04/27/19 04:18 0.0 K/mm3 04/27/19 04:18 0.0 K/mm3 04/27/19 04:18 0.0 K/mm3 04/27/19 04:18 Blast Cells # 0.0 K/mm3 04/27/19 04:18 WBC Morphology Not Reportable 04/27/19 04:18 Hypersegmented Neuts Not Reportable 04/27/19 04:18 Hyposegmented Neuts Not Reportable 04/27/19 04:18 Hypogranular Neuts Not Reportable 04/27/19 04:18 Not Reportable 04/27/19 04:18 Not Reportable 04/27/19 04:18 Not Reportable 04/27/19 04:18 Not Reportable 04/27/19 04:18 Not Reportable 04/27/19 04:18 Not Reportable 04/27/19 04:18 Consistent w auto 04/27/19 04:18 Not Reportable 04/27/19 04:18 Plt Clumps, EDTA Not Reportable 04/27/19 04:18 Not Reportable 04/27/19 04:18 Not Reportable 04/27/19 04:18 Not Reportable 04/27/19 04:18 Plt Morphology Comment Not Reportable 04/27/19 04:18 RBC Morphology Not Reportable 04/27/19 04:18 Dimorphic RBCs Not Reportable 04/27/19 04:18 Few 04/27/19 04:18 1+ 04/27/19 04:18 Few 04/27/19 04:18 2+ 04/27/19 04:18 Not Reportable 04/27/19 04:18 Not Reportable 04/27/19 04:18 Not Reportable 04/27/19 04:18 Not Reportable 04/27/19 04:18 Not Reportable 04/27/19 04:18 1+ 04/27/19 04:18 Not Reportable 04/27/19 04:18 Not Reportable 04/27/19 04:18 Not Reportable 04/27/19 04:18 Not Reportable 04/27/19 04:18 Not Reportable 04/27/19 04:18 Not Reportable 04/27/19 04:18 Not Reportable 04/27/19 04:18 Not Reportable 04/27/19 04:18 Not Reportable 04/27/19 04:18 Acanthocytes (Spur) Not Reportable 04/27/19 04:18 Rouleaux Not Reportable 04/27/19 04:18 Not Reportable 04/27/19 04:18 Not Reportable 04/27/19 04:18 Not Reportable 04/27/19 04:18 Not Reportable 04/27/19 04:18 Hem Pathologist Commnt No 04/27/19 04:18 PT 15.1 Sec. (12.2-14.9) H 04/25/19 20:08 INR 1.22 (0.87-1.13) H 04/25/19 20:08 APTT 27.3 Sec. (24.2-36.6) 04/25/19 20:08 Heparin Anti-Xa Level < 0.10 U.I./ml (0.3-0.7) L 04/26/19 03:08 POC ABG pH 7.470 (7.35-7.45) H 04/26/19 21:35 POC ABG pCO2 33.7 (35-45) L 04/26/19 21:35 POC ABG pO2 74 (80-105) L 04/26/19 21:35 POC ABG HCO3 24.5 (22-26 mml/L) 04/26/19 21:35 POC ABG Total CO2 26 (23-27mmol/L) 04/26/19 21:35 POC ABG O2 Sat 96 04/26/19 21:35 POC ABG Base Excess 1 ((-2) - (+3)mmol/L) 04/26/19 21:35 45 % 04/26/19 21:35 Sodium 141 mmol/L (137-145) 04/27/19 04:18 Potassium 3.8 mmol/L (3.6-5.0) 04/27/19 04:18 Chloride 103.0 mmol/L (98-107) 04/27/19 04:18 Carbon Dioxide 26 mmol/L (22-30) 04/27/19 04:18 16 mmol/L 04/27/19 04:18 BUN 13 mg/dL (9-20) 04/27/19 04:18 1.2 mg/dL (0.8-1.5) 04/27/19 04:18 Estimated GFR > 60 ml/min 04/27/19 04:18 11 % 04/27/19 04:18 Glucose 102 mg/dL (75-100) H 04/27/19 04:18 POC Glucose 108 (70-105) H 04/27/19 03:37 5.8 % (4-6) 04/25/19 20:08 Calcium 8.8 mg/dL (8.4-10.2) 04/27/19 04:18 Phosphorus 3.90 mg/dL (2.5-4.5) 04/26/19 08:04 Magnesium 1.70 mg/dL (1.7-2.3) 04/27/19 04:18 1.10 mg/dL (0.1-1.2) 04/27/19 04:18 AST 21 units/L (5-40) 04/27/19 04:18 ALT 6 units/L (7-56) L 04/27/19 04:18 90 units/L (35-129) 04/27/19 04:18 205 units/L (55-170) H 04/26/19 08:04 CK-MB (CK-2) 3.5 ng/mL (0.0-4.0) 04/26/19 08:04 CK-MB (CK-2) Rel Index 1.7 (0-4) 04/26/19 08:04 0.103 ng/mL (0.00-0.029) H* 04/26/19 23:25 7.3 g/dL (6.3-8.2) 04/27/19 04:18 3.1 g/dL (3.9-5) L 04/27/19 04:18 0.7 % 04/27/19 04:18 Triglycerides 71 mg/dL (2-149) 04/25/19 16:00 Cholesterol 178 mg/dL (50-199) 04/25/19 16:00 104 mg/dL (50-130) 04/25/19 16:00 66 mg/dL (40-59) H 04/25/19 16:00 2.69 % 04/25/19 16:00 TSH 3.220 mlU/mL (0.270-4.200) 04/25/19 16:00 Free T4 0.91 ng/dL (0.76-1.46) 04/25/19 16:00 Yellow (Yellow) 04/25/19 16:00 Clear (Clear) 04/25/19 16:00 5.0 (5.0-7.0) 04/25/19 16:00 Ur Specific [place] 1.013 (1.003-1.030) 04/25/19 16:00 >500 mg/dL (Negative) 04/25/19 16:00 Neg mg/dL (Negative) 04/25/19 16:00 Tr mg/dL (Negative) 04/25/19 16:00 Sm (Negative) 04/25/19 16:00 Neg (Negative) 04/25/19 16:00 Neg (Negative) 04/25/19 16:00 < 2.0 mg/dL (<2.0) 04/25/19 16:00 Ur Leukocyte Esterase Neg (Negative) 04/25/19 16:00 2.0 /HPF (0.0-6.0) 04/25/19 16:00 1.0 /HPF (0.0-6.0) 04/25/19 16:00 U Epithel Cells (Auto) < 1.0 /HPF (0-13.0) 04/25/19 16:00 Few /HPF 04/25/19 16:00 Active Medications - Current Medications Current Medications: Generic Name Dose Route Start Last Admin Trade Name Freq PRN Reason Stop Dose Admin Acetaminophen 650 mg 04/25/19 18:59 Tylenol PO Q4H PRN Pain MILD(1-3)/Fever >100.5/COSTA Aspirin 81 mg 04/26/19 10:00 04/26/19 09:17 Baby Aspirin PO 81 mg QDAY LARRY Administration Atorvastatin Calcium 40 mg 04/25/19 22:00 04/26/19 22:00 Lipitor PO Not Given QHS LARRY Carvedilol 25 mg 04/27/19 11:06 Coreg PO BID LARRY Enoxaparin Sodium 40 mg 04/26/19 14:00 04/27/19 10:34 Lovenox SUB-Q 40 mg QDAY LARRY Administration Furosemide 40 mg 04/26/19 06:00 04/27/19 07:37 Lasix IV 40 mg 0600,1800 COUNTS INCLUDE 234 BEDS AT THE [facility] Administration Hydralazine HCl 20 mg 04/27/19 02:00 04/27/19 07:24 Apresoline IV Not Given Q4HR COUNTS INCLUDE 234 BEDS AT THE [facility] Hydromorphone HCl 0.5 mg 04/25/19 18:59 04/26/19 11:10 Dilaudid IV 0.5 mg Q3H PRN Administration Pain , Severe (7-10) Lorazepam 2 mg 04/27/19 11:06 Ativan IV Q2H PRN Agitation Losartan Potassium 100 mg 04/25/19 20:00 04/26/19 09:16 Cozaar PO 100 mg QDAY LARRY Administration Nicardipine HCl 30 mg 04/26/19 14:00 04/27/19 06:00 Cardene PO Not Given Q8HR COUNTS INCLUDE 234 BEDS AT THE [facility] Ondansetron HCl 4 mg 04/25/19 18:59 04/26/19 21:27 Zofran IV 4 mg Q8H PRN Administration Nausea And Vomiting Potassium Chloride 20 meq 04/25/19 20:00 04/27/19 10:39 K-Dur PO Not Given Q12H LARRY Sodium Chloride 10 ml 04/25/19 22:00 04/27/19 10:38 Sodium Chloride Flush Syringe 10 Ml IV 10 ml BID LARRY Administration Sodium Chloride 10 ml 04/25/19 18:59 04/26/19 20:29 Sodium Chloride Flush Syringe 10 Ml IV 10 ml PRN PRN Administration LINE FLUSH Nutrition/Malnutrition Assess - Dietary Evaluation Nutrition/Malnutrition Findings: Nutrition Notes Start: 04/26/19 13:59 Freq: Status: Active Protocol: Document 07/08/19 13:59 RM (Rec: 04/26/19 14:06 RM [id number]) Nutrition Notes Need for Assessment generated from: trial judge Initial or Follow up Assessment Current Diagnosis Diabetes,Hypertension,Heart Failure,Hyperlipidemia Other Pertinent Diagnosis ND, Alcohol withdrawal symptoms Current Diet Cardiac Labs/Tests Reviewed Pertinent Medications Lasix Height 5 ft 11 in Weight 85.5 kg [place] Body Weight (kg) 78.18 BMI 26.2 Subjective/Other Information Screened for skin risk. Jason 18 points. Pt asleep at time of visit. Per nurse pt drank juice and ate pudding and some of his scrambled eggs for breakfast. Burn Absent Trauma Absent #1 Nutrition Diagnosis Inadequate oral intake Etiology alcohol withdrawal symptoms As Evidenced by Signs and Symptoms pt nurse statement that pt only drank juice and ate pudding and some of his scrambled eggs for breakfast Is patient on ventilator? No Is Patient Ambulatory and/or Out of Bed No REE-([facility]-confined to bed) 2034. Calculation Used for Recommendations [facility] Additional Notes Protein Needs: 103-171g (1.2- 2g/kg) Fluid Needs: 1 ml/kcal Nutrition Intervention Change Diet Order: Cardiac/Consistent CHO Add Supplement/Snack (indicate name/kcal Glucerna 1 daily /protein ) Provides kCal: 220 Provides Protein (gm) 10 Goal #1 Meet at least 80% of calorie and protein needs via PO and ONS intakes Anticipated Discharge Needs: Cardiac/Consistent CHO diet Follow-Up By: 04/28/19 Additional Comments Follow for PO and ONS intakes
[2019-04-27] MEDS: BABY ASPIRIN PO SCH (11:51)
[2019-04-27] MEDS: COZAAR PO SCH (11:51)
[2019-04-27] MEDS: LIBRIUM PO SCH ×3 (11:52→23:11)
[2019-04-27] MEDS: COREG PO SCH ×2 (12:54→22:03)
[2019-04-27] MEDS ORDERED: APRESOLINE IV PRN (13:00)
--- NOTE | 2019-04-27 13:51 | Progress Note ---
Assessment and Plan Imp: 1. NICMP, ? EtOH-related 2. A/C systolic CHF -> due to medical noncompliance and EtOH abuse 3. Acute respiratory failure, hypoxia 2/2 above 4. DTs 5. Chronic EtOH abuse Rec: 1. IV Lasix 2. BP optimization 3. Start PO Librium and use IV Ativan prn agitation 4. Aspiration precautions/HOB elevation 5. Wean off HFNC to keep sats 88% or greater; use BIPAP prn and monitor mentation closely 6. Off heparin drip; added DVT PPx 7. Mag repleted to keep > 2.0 8. Prognosis is guarded; no family present 9. Keep in ICU next 24 hours No family present. Subjective Date of service: 04/27/19 Principal diagnosis: hf; HTN; ams Interval history: No events. Somnolent, arousable. WOB is better. No obvious complaints. Active Medications Acetaminophen (Tylenol) 650 mg PO Q4H PRN PRN Reason: Pain MILD(1-3)/Fever >100.5/COSTA Aspirin (Baby Aspirin) 81 mg PO QDAY [facility] Last Admin: 04/27/19 11:51 Dose: 81 mg Documented by: Atorvastatin Calcium (Lipitor) 40 mg PO QHS [facility] Last Admin: 04/26/19 22:00 Dose: Not Given Documented by: Carvedilol (Coreg) 25 mg PO BID [facility] Last Admin: 04/27/19 12:54 Dose: 25 mg Documented by: Chlordiazepoxide HCl (Librium) 25 mg PO Q6HR [facility] Last Admin: 04/27/19 11:52 Dose: 25 mg Documented by: Enoxaparin Sodium (Lovenox) 40 mg SUB-Q QDAY@1000 [facility] Furosemide (Lasix) 40 mg IV 0600,1800 [facility] Last Admin: 04/27/19 07:37 Dose: 40 mg Documented by: Hydralazine HCl (Apresoline) 20 mg IV Q6H PRN PRN Reason: SBP > 160 Hydralazine HCl (Apresoline) 50 mg PO Q8HR [facility] Hydromorphone HCl (Dilaudid) 0.5 mg IV Q3H PRN PRN Reason: Pain , Severe (7-10) Last Admin: 04/26/19 11:10 Dose: 0.5 mg Documented by: Lorazepam (Ativan) 2 mg IV Q2H PRN PRN Reason: Agitation Losartan Potassium (Cozaar) 100 mg PO QDAY [facility] Last Admin: 04/27/19 11:51 Dose: 100 mg Documented by: Nicardipine HCl (Cardene) 30 mg PO Q8HR [facility] Last Admin: 04/27/19 06:00 Dose: Not Given Documented by: Ondansetron HCl (Zofran) 4 mg IV Q8H PRN PRN Reason: Nausea And Vomiting Last Admin: 04/26/19 21:27 Dose: 4 mg Documented by: Potassium Chloride (K-Dur) 20 meq PO Q12H [facility] Last Admin: 04/27/19 10:39 Dose: Not Given Documented by: Sodium Chloride (Sodium Chloride Flush Syringe 10 Ml) 10 ml IV BID [facility] Last Admin: 04/27/19 10:38 Dose: 10 ml Documented by: Sodium Chloride (Sodium Chloride Flush Syringe 10 Ml) 10 ml IV PRN PRN PRN Reason: LINE FLUSH Last Admin: 04/26/19 20:29 Dose: 10 ml Documented by: Objective Vital Signs - 12hr 04/27/19 04/27/19 04/27/19 01:50 02:00 02:10 Temperature Pulse Rate 109 H 107 H 105 H Pulse Rate [ From Monitor] Respiratory 39 H 40 H 38 H Rate Blood Pressure 128/96 128/96 110/50 O2 Sat by Pulse 96 96 95 Oximetry 04/27/19 04/27/19 04/27/19 02:20 02:30 02:40 Temperature Pulse Rate 110 H 107 H 111 H Pulse Rate [ From Monitor] Respiratory 40 H 27 H 19 Rate Blood Pressure 128/96 128/96 121/88 O2 Sat by Pulse 96 98 96 Oximetry 04/27/19 04/27/19 04/27/19 02:50 03:00 03:10 Temperature Pulse Rate 114 H 110 H 108 H Pulse Rate [ From Monitor] Respiratory 13 30 H 36 H Rate Blood Pressure 110/50 110/50 110/50 O2 Sat by Pulse 97 98 93 Oximetry 04/27/19 04/27/19 04/27/19 03:20 03:30 03:40 Temperature Pulse Rate 105 H 104 H 104 H Pulse Rate [ From Monitor] Respiratory 37 H 41 H 40 H Rate Blood Pressure 110/50 110/50 107/72 O2 Sat by Pulse 98 98 98 Oximetry 04/27/19 04/27/19 04/27/19 03:41 03:50 03:56 Temperature 98.1 F Pulse Rate 103 H Pulse Rate [ 103 H From Monitor] Respiratory 40 H Rate Blood Pressure 107/72 O2 Sat by Pulse 97 97 Oximetry 04/27/19 04/27/19 04/27/19 04:00 04:10 04:20 Temperature Pulse Rate 102 H 101 H 105 H Pulse Rate [ From Monitor] Respiratory 38 H 37 H 18 Rate Blood Pressure 93/63 93/63 93/63 O2 Sat by Pulse 96 97 96 Oximetry 04/27/19 04/27/19 04/27/19 04:30 04:40 04:50 Temperature Pulse Rate 104 H 107 H 108 H Pulse Rate [ From Monitor] Respiratory 34 H 44 H 35 H Rate Blood Pressure 93/63 134/94 134/94 O2 Sat by Pulse 97 97 98 Oximetry 04/27/19 04/27/19 04/27/19 05:00 05:10 05:20 Temperature Pulse Rate 110 H 108 H 108 H Pulse Rate [ From Monitor] Respiratory 23 38 H 13 Rate Blood Pressure 134/94 137/96 137/96 O2 Sat by Pulse 98 98 99 Oximetry 04/27/19 04/27/19 04/27/19 05:30 05:40 05:50 Temperature Pulse Rate 109 H 104 H 105 H Pulse Rate [ From Monitor] Respiratory 22 40 H 36 H Rate Blood Pressure 137/96 126/89 126/89 O2 Sat by Pulse 100 96 96 Oximetry 04/27/19 04/27/19 04/27/19 06:00 06:10 06:20 Temperature Pulse Rate 103 H 102 H 101 H Pulse Rate [ From Monitor] Respiratory 34 H 36 H 37 H Rate Blood Pressure 126/89 95/68 95/68 O2 Sat by Pulse 97 95 95 Oximetry 04/27/19 04/27/19 04/27/19 06:30 06:40 06:50 Temperature Pulse Rate 100 H 102 H 105 H Pulse Rate [ From Monitor] Respiratory 36 H 35 H 42 H Rate Blood Pressure 89/61 120/79 120/79 O2 Sat by Pulse 95 97 98 Oximetry 04/27/19 04/27/19 04/27/19 07:00 07:10 07:20 Temperature Pulse Rate 106 H 105 H 103 H Pulse Rate [ From Monitor] Respiratory 41 H 22 20 Rate Blood Pressure 128/95 128/95 128/95 O2 Sat by Pulse 96 96 99 Oximetry 04/27/19 04/27/19 04/27/19 07:30 07:40 07:50 Temperature Pulse Rate 101 H 100 H 99 H Pulse Rate [ From Monitor] Respiratory 40 H 30 H 42 H Rate Blood Pressure 128/95 138/93 138/93 O2 Sat by Pulse 99 100 100 Oximetry 04/27/19 04/27/19 04/27/19 08:00 08:10 08:20 Temperature 98.3 F Pulse Rate 99 H 97 H 100 H Pulse Rate [ 97 H From Monitor] Respiratory 33 H 38 H 44 H Rate Blood Pressure 138/93 136/91 136/91 O2 Sat by Pulse 85 98 100 Oximetry 04/27/19 04/27/19 04/27/19 08:30 08:40 08:50 Temperature Pulse Rate 97 H 95 H 97 H Pulse Rate [ From Monitor] Respiratory 37 H 33 H 36 H Rate Blood Pressure 136/91 127/92 127/92 O2 Sat by Pulse 99 100 100 Oximetry 04/27/19 04/27/19 04/27/19 09:00 09:10 09:20 Temperature Pulse Rate 99 H 99 H 99 H Pulse Rate [ From Monitor] Respiratory 40 H 38 H 28 H Rate Blood Pressure 127/92 130/92 130/92 O2 Sat by Pulse 100 100 100 Oximetry 04/27/19 04/27/19 04/27/19 09:30 09:40 09:50 Temperature Pulse Rate 96 H 98 H 100 H Pulse Rate [ From Monitor] Respiratory 36 H 32 H 37 H Rate Blood Pressure 130/92 130/83 130/83 O2 Sat by Pulse 100 98 97 Oximetry 04/27/19 04/27/19 04/27/19 10:00 10:10 10:20 Temperature Pulse Rate 105 H 105 H 102 H Pulse Rate [ From Monitor] Respiratory 38 H 37 H 33 H Rate Blood Pressure 132/91 132/91 132/91 O2 Sat by Pulse 94 93 98 Oximetry 04/27/19 04/27/19 04/27/19 10:30 10:40 10:50 Temperature Pulse Rate 108 H 104 H 103 H Pulse Rate [ From Monitor] Respiratory 20 26 H 36 H Rate Blood Pressure 132/91 128/84 128/84 O2 Sat by Pulse 97 100 100 Oximetry 07/07/0804/27/19 04/27/19 11:00 11:10 11:20 Temperature Pulse Rate 103 H 102 H 102 H Pulse Rate [ From Monitor] Respiratory 31 H 29 H 30 H Rate Blood Pressure 130/81 130/81 130/81 O2 Sat by Pulse 99 100 100 Oximetry 04/27/19 04/27/19 04/27/19 11:30 11:40 11:50 Temperature Pulse Rate 105 H 101 H 99 H Pulse Rate [ From Monitor] Respiratory 27 H 35 H 35 H Rate Blood Pressure 130/81 128/88 128/88 O2 Sat by Pulse 100 100 99 Oximetry 04/27/19 04/27/19 04/27/19 11:51 12:00 12:10 Temperature Pulse Rate 99 H 98 H 100 H Pulse Rate [ 98 H From Monitor] Respiratory 33 H 32 H Rate Blood Pressure 128/88 128/88 118/82 O2 Sat by Pulse 98 100 Oximetry 04/27/19 04/27/19 04/27/19 12:20 12:30 12:40 Temperature Pulse Rate 99 H 101 H 101 H Pulse Rate [ From Monitor] Respiratory 32 H 29 H 32 H Rate Blood Pressure 118/82 118/82 120/84 O2 Sat by Pulse 100 100 99 Oximetry 04/27/19 04/27/19 04/27/19 12:45 12:50 12:54 Temperature Pulse Rate 104 H 102 H 103 H Pulse Rate [ From Monitor] Respiratory 36 H Rate Blood Pressure 120/84 120/84 120/84 O2 Sat by Pulse 100 Oximetry 04/27/19 04/27/19 04/27/19 13:00 13:10 13:20 Temperature Pulse Rate 99 H 99 H 98 H Pulse Rate [ From Monitor] Respiratory 35 H 29 H 29 H Rate Blood Pressure 122/85 122/85 122/85 O2 Sat by Pulse 98 97 95 Oximetry 04/27/19 04/27/19 13:30 13:40 Temperature Pulse Rate 98 H 94 H Pulse Rate [ From Monitor] Respiratory 36 H 31 H Rate Blood Pressure 122/85 115/80 O2 Sat by Pulse 100 100 Oximetry Constitutional: no acute distress, asleep Eyes: non-icteric ENT: oropharynx moist Neck: supple Effort: mildly labored (tachypneic but no accessory muscle usage) Ascultation: Bilateral: rhonchi (mild bilateral rhonchi) Cardiovascular: other (tachy, RR; no mrg) Gastrointestinal: normoactive bowel sounds, non-distended Integumentary: normal Extremities: no cyanosis, no edema, pink and warm Neurologic: non-focal exam Psychiatric: other (sedated) CBC and BMP: 04/27/19 04:18 04/27/19 04:18 ABG, PT/INR, D-dimer: ABG POC ABG pH 7.470 (7.35-7.45) H 04/26/19 21:35 POC ABG pCO2 33.7 (35-45) L 04/26/19 21:35 POC ABG pO2 74 (80-105) L 04/26/19 21:35 POC ABG HCO3 24.5 (22-26 mml/L) 04/26/19 21:35 POC ABG Total CO2 26 (23-27mmol/L) 04/26/19 21:35 POC ABG O2 Sat 96 04/26/19 21:35 PT/INR, D-dimer PT 15.1 Sec. (12.2-14.9) H 04/25/19 20:08 INR 1.22 (0.87-1.13) H 04/25/19 20:08 Abnormal lab findings: Abnormal Labs 04/25/19 04/25/19 04/25/19 15:55 15:55 16:00 RBC Hgb 9.4 L Hct 30.9 L MCV 71 L MCH 22 L MCHC 31 L RDW 25.5 H Seg Neuts % (Manual) 72.0 H Lymphocytes % (Manual) Monocytes % (Manual) 8.0 H Basophils % (Manual) 2.0 H Lymphocytes # (Manual) Basophils # (Manual) 0.2 H PT INR 1.17 H Heparin Anti-Xa Level POC ABG pH POC ABG pCO2 POC ABG pO2 Sodium Carbon Dioxide 14 L BUN 8 L Creatinine 0.7 L Glucose 103 H POC Glucose Magnesium Total Bilirubin ALT Total Creatine Kinase CK-MB (CK-2) Troponin T Total Protein Albumin HDL Cholesterol 04/25/19 04/25/19 04/25/19 16:00 18:19 20:08 RBC Hgb 9.3 L Hct 30.3 L MCV MCH MCHC RDW Seg Neuts % (Manual) Lymphocytes % (Manual) Monocytes % (Manual) Basophils % (Manual) Lymphocytes # (Manual) Basophils # (Manual) PT INR Heparin Anti-Xa Level POC ABG pH 7.338 L POC ABG pCO2 30.7 L POC ABG pO2 165 H Sodium Carbon Dioxide BUN Creatinine Glucose POC Glucose Magnesium 1.20 L Total Bilirubin ALT Total Creatine Kinase 196 H CK-MB (CK-2) 5.7 H Troponin T 0.141 H* Total Protein Albumin HDL Cholesterol 66 H 04/25/19 04/26/19 04/26/19 20:08 03:08 03:08 RBC Hgb 8.8 L Hct 27.9 L MCV 70 L MCH 22 L MCHC RDW 24.6 H Seg Neuts % (Manual) 85.0 H Lymphocytes % (Manual) 11.0 L Monocytes % (Manual) Basophils % (Manual) Lymphocytes # (Manual) 1.0 L Basophils # (Manual) PT 15.1 H INR 1.22 H Heparin Anti-Xa Level POC ABG pH POC ABG pCO2 POC ABG pO2 Sodium 136 L Carbon Dioxide 21 L D BUN Creatinine Glucose 148 H POC Glucose Magnesium Total Bilirubin 1.50 H ALT Total Creatine Kinase CK-MB (CK-2) Troponin T Total Protein 8.6 H Albumin 3.5 L HDL Cholesterol 04/26/19 04/26/19 04/26/19 03:08 08:04 14:16 RBC Hgb Hct MCV MCH MCHC RDW Seg Neuts % (Manual) Lymphocytes % (Manual) Monocytes % (Manual) Basophils % (Manual) Lymphocytes # (Manual) Basophils # (Manual) PT INR Heparin Anti-Xa Level < 0.10 L POC ABG pH POC ABG pCO2 POC ABG pO2 Sodium Carbon Dioxide BUN Creatinine Glucose POC Glucose Magnesium 1.50 L Total Bilirubin ALT Total Creatine Kinase 205 H CK-MB (CK-2) Troponin T 0.098 H Total Protein Albumin HDL Cholesterol 04/26/19 04/26/19 04/27/19 21:35 23:25 03:37 RBC Hgb Hct MCV MCH MCHC RDW Seg Neuts % (Manual) Lymphocytes % (Manual) Monocytes % (Manual) Basophils % (Manual) Lymphocytes # (Manual) Basophils # (Manual) PT INR Heparin Anti-Xa Level POC ABG pH 7.470 H POC ABG pCO2 33.7 L POC ABG pO2 74 L Sodium Carbon Dioxide BUN Creatinine Glucose POC Glucose 108 H Magnesium Total Bilirubin ALT Total Creatine Kinase CK-MB (CK-2) Troponin T 0.103 H* Total Protein Albumin HDL Cholesterol 04/27/19 04/27/19 04:18 04:18 RBC 3.47 L Hgb 7.8 L Hct 24.6 L MCV 71 L MCH 22 L MCHC RDW 25.2 H Seg Neuts % (Manual) 80.0 H Lymphocytes % (Manual) Monocytes % (Manual) Basophils % (Manual) Lymphocytes # (Manual) 0.8 L Basophils # (Manual) PT INR Heparin Anti-Xa Level POC ABG pH POC ABG pCO2 POC ABG pO2 Sodium Carbon Dioxide BUN Creatinine Glucose 102 H POC Glucose Magnesium Total Bilirubin ALT 6 L Total Creatine Kinase CK-MB (CK-2) Troponin T Total Protein Albumin 3.1 L HDL Cholesterol Chest x-ray: report reviewed, image reviewed (no change)
[2019-04-27] MEDS ORDERED: MAGNESIUM SULFATE 2GM/50ML 2 GM/50 ML BAG IV ONE (15:00)
[2019-04-27] MEDS: APRESOLINE PO SCH (16:08)
[2019-04-28] MEDS: APRESOLINE PO SCH ×3 (00:47→14:39)
[2019-04-28 05:04] LABS: Hematocrit 26.7 % (35.5-45.6); Hemoglobin 8.3 gm/dl (11.8-15.2); Mean Corpuscular HGB Conc 31 % (32-34); Mean Corpuscular Volume 73 fl (84-94); Platelet Count 226 K/mm3 (140-440); Red Blood Count 3.69 M/mm3 (3.65-5.03)
[2019-04-28 05:06] LABS: Red Cell Distribution Width 24.6 % (13.2-15.2)
[2019-04-28 05:18] LABS: % Iron Saturation 5.38 %; Alanine Aminotransferase 6 units/L (7-56); BUN/Creatinine Ratio 12; Blood Urea Nitrogen 17 mg/dL (9-20); Calcium 8.9 mg/dL (8.4-10.2); Hemolysis Index 16; Iron 17 ug/dL (49-181); Total Iron Binding Capacity 316 mcg/dL (250-450)
[2019-04-28] MEDS: LIBRIUM PO SCH (06:12)
[2019-04-28] MEDS: LASIX IV SCH ×2 (06:12→19:05)
[2019-04-28 07:00] LABS: Anisocytosis 1+; Basophils % (Manual) 0 % (0.0-1.8); Total Cells Counted 100
[2019-04-28 07:01] LABS: Hypochromasia 2+; Ovalocytes Few; Poikilocytosis Few; Target Cells Few
[2019-04-28 07:02] LABS: Giant Platelets Rare; Large Platelets Rare; Platelet Estimate Cons
[2019-04-28] MEDS: LOVENOX SUB-Q SCH (09:41)
[2019-04-28] MEDS: PROTONIX PO SCH (09:42)
[2019-04-28] MEDS: BABY ASPIRIN PO SCH (09:42)
[2019-04-28] MEDS: COREG PO SCH ×2 (09:42→21:07)
[2019-04-28] MEDS: VITAMIN B-1 PO SCH (09:42)
[2019-04-28] MEDS: FOLVITE PO SCH (09:42)
[2019-04-28] MEDS: COZAAR PO SCH (09:43)
[2019-04-28] MEDS: SODIUM CHLORIDE FLUSH SYRINGE 10 ML IV SCH (09:44)
[2019-04-28] MEDS: K-DUR PO SCH ×2 (09:51→21:07)
[2019-04-28] MEDS ORDERED: MAGNESIUM SULFATE 2GM/50ML 2 GM/50 ML BAG IV ONE (10:00)
--- NOTE | 2019-04-28 11:30 | Progress Note ---
Assessment and Plan Lexiscan MPI stress test done 04/01/2019 was negative for ischemia, EF 36%. Echo done 03/29/2019 showed EF 45-50%, mod LVH, impaired relaxation, RA mild to mod dilated, small patent PFO, RVSP 30mmHg, mild HI. Pt denies any chest pain, ECG with no acute ischemic changes. CE elevation appears c/w NSTEMI type II. Replete lytes PRN. Cont all other present cardiac management. The patient has been seen in conjunction with Dr. Wilkinson who agrees with the assessment and plan of care. - Patient Problems (1) Acute HFrEF (heart failure with reduced ejection fraction) Current Visit: Yes Status: Acute (2) Acute respiratory failure Current Visit: Yes Status: Acute (3) Hypertensive emergency Current Visit: Yes Status: Acute (4) NSTEMI (non-ST elevated myocardial infarction) Current Visit: Yes Status: Acute (5) Anemia Current Visit: Yes Status: Chronic Qualifiers: Anemia type: unspecified type Qualified Code(s): D64.9 - Anemia, un specified (6) Diabetes Current Visit: Yes Status: Chronic (7) Noncompliance with medication regimen Current Visit: Yes Status: Chronic (8) PFO (patent foramen ovale) Current Visit: Yes Status: Chronic (9) SVT Current Visit: Yes Status: Suspected (10) Hypomagnesemia Current Visit: Yes Status: Acute (11) Altered mental status Current Visit: Yes Status: Acute Subjective Date of service: 04/28/19 Principal diagnosis: hf; HTN; ams Interval history: pt resting in bed, appears more alert today, no current cardiac complaints. in SR/ST on telemetry. Objective Last Vital Signs Temp 98.5 F 04/28/19 08:00 Pulse 87 04/28/19 11:00 Resp 26 H 04/28/19 11:00 BP 86/57 04/28/19 11:00 Pulse Ox 90 04/28/19 10:30 - Physical Examination General: No Apparent Distress HEENT: Positive: PERRL Neck: Positive: neck supple, trachea midline Cardiac: Positive: Reg Rate and Rhythm, S1/S2 Lungs: Positive: Decreased Breath Sounds Neuro: Positive: Grossly Intact Abdomen: Negative: Tender Skin: Negative: Rash Musculoskeletal: No Pain - Labs and Meds Cardiac Enzymes 04/28/19 Range/Units 03:43 AST 19 (5-40) units/L CBC 04/28/19 Range/Units 03:43 WBC 5.2 (4.5-11.0) K/mm3 RBC 3.69 (3.65-5.03) M/mm3 Hgb 8.3 L (11.8-15.2) gm/dl Hct 26.7 L (35.5-45.6) % Plt Count 226 (140-440) K/mm3 Comprehensive Metabolic Panel 04/28/19 Range/Units 03:43 Sodium 137 (137-145) mmol/L Potassium 4.0 (3.6-5.0) mmol/L Chloride 99.9 (98-107) mmol/L Carbon Dioxide 28 (22-30) mmol/L BUN 17 (9-20) mg/dL Creatinine 1.4 (0.8-1.5) mg/dL Glucose 99 (75-100) mg/dL Calcium 8.9 (8.4-10.2) mg/dL AST 19 (5-40) units/L ALT 6 L (7-56) units/L Alkaline Phosphatase 87 (35-129) units/L Total Protein 7.5 (6.3-8.2) g/dL Albumin 3.0 L (3.9-5) g/dL - Imaging and Cardiology EKG: report reviewed, image reviewed Echo: report reviewed (03/29/2019 showed EF 45-50%, mod LVH, impaired relaxation, RA mild to mod dilated, small patent PFO, RVSP 30mmHg, mild HI.) - Telemetry EKG Rhythm: Sinus Rhythm - EKG Sinus rhythms and dysrhythmias: sinus tachycardia
--- NOTE | 2019-04-28 12:51 | Progress Note ---
Assessment and Plan - Patient Problems (1) EtOH dependence Current Visit: Yes Status: Acute (2) Acute exacerbation of CHF (congestive heart failure) Current Visit: Yes Status: Acute Qualifiers: Heart failure type: diastolic Qualified Code(s): I50.33 - Acute on chronic diastolic (congestive) heart failure (3) Acute respiratory failure with hypoxia Current Visit: Yes Status: Acute (4) NSTEMI (non-ST elevated myocardial infarction) Current Visit: Yes Status: Acute (5) Shortness of breath Current Visit: Yes Status: Acute (6) Anasarca Current Visit: No Status: Chronic (7) Anemia Current Visit: No Status: Chronic Qualifiers: Anemia type: unspecified type Qualified Code(s): D64.9 - Anemia, unspecified (8) Diabetes Current Visit: No Status: Chronic (9) Noncompliance with medication regimen Current Visit: No Status: Chronic (10) Cardiomyopathy Current Visit: Yes Status: Acute Qualifiers: Cardiomyopathy type: alcoholic Qualified Code(s): I42.6 - Alcoholic cardiomyopathy (11) Altered mental status Current Visit: Yes Status: Acute Qualifiers: Altered mental status type: disorientation Qualified Code(s): R41.0 - Disorientation, unspecified (12) DTs (delirium tremens) Current Visit: Yes Status: Acute Subjective Principal diagnosis: hf; HTN; ams Interval history: awake Objective Vital Signs - 12hr 04/28/19 04/28/19 04/28/19 00:47 01:00 01:30 Temperature Pulse Rate 90 89 90 Pulse Rate [ From Monitor] Respiratory 29 H 29 H Rate Blood Pressure 95/65 88/51 95/60 O2 Sat by Pulse 97 100 Oximetry 04/28/19 04/28/19 04/28/19 02:00 02:30 03:00 Temperature Pulse Rate 91 H 90 89 Pulse Rate [ From Monitor] Respiratory 29 H 28 H 29 H Rate Blood Pressure 104/68 100/69 107/71 O2 Sat by Pulse 100 100 100 Oximetry 04/28/19 04/28/19 04/28/19 03:30 04:00 04:31 Temperature 98.5 F Pulse Rate 89 87 92 H Pulse Rate [ 87 From Monitor] Respiratory 27 H 26 H 31 H Rate Blood Pressure 105/74 108/76 109/75 O2 Sat by Pulse 100 100 100 Oximetry 04/28/19 04/28/19 04/28/19 04:48 05:00 05:30 Temperature Pulse Rate 87 89 Pulse Rate [ From Monitor] Respiratory 29 H 33 H Rate Blood Pressure 108/79 103/67 O2 Sat by Pulse 100 100 100 Oximetry 04/28/19 04/28/19 04/28/19 06:00 06:12 06:30 Temperature Pulse Rate 86 88 90 Pulse Rate [ From Monitor] Respiratory 23 32 H Rate Blood Pressure 100/68 100/68 104/76 O2 Sat by Pulse 100 100 Oximetry 04/28/19 04/28/19 04/28/19 07:00 07:30 08:00 Temperature 98.5 F Pulse Rate 90 86 87 Pulse Rate [ 87 From Monitor] Respiratory 27 H 22 27 H Rate Blood Pressure 103/72 109/76 108/75 O2 Sat by Pulse 100 95 100 Oximetry 04/28/19 04/28/19 04/28/19 08:30 09:00 09:30 Temperature Pulse Rate 87 86 90 Pulse Rate [ From Monitor] Respiratory 25 H 30 H 19 Rate Blood Pressure 112/77 112/77 104/67 O2 Sat by Pulse 100 100 97 Oximetry 04/28/19 04/28/19 04/28/19 09:42 09:43 10:00 Temperature Pulse Rate 89 90 88 Pulse Rate [ From Monitor] Respiratory 29 H Rate Blood Pressure 116/78 116/78 104/67 O2 Sat by Pulse Oximetry 04/28/19 04/28/19 04/28/19 10:30 11:00 11:55 Temperature 98.4 F Pulse Rate 88 87 Pulse Rate [ From Monitor] Respiratory 27 H 26 H Rate Blood Pressure 95/63 86/57 O2 Sat by Pulse 90 Oximetry Constitutional: no acute distress Eyes: non-icteric ENT: oropharynx moist Neck: supple Effort: mildly labored (tachypneic but no accessory muscle usage) Ascultation: Bilateral: rhonchi (mild bilateral rhonchi) Cardiovascular: other (tachy, RR; no mrg) Gastrointestinal: normoactive bowel sounds, non-distended Integumentary: normal Extremities: no cyanosis, no edema, pink and warm Neurologic: non-focal exam Psychiatric: other (sedated) CBC and BMP: 04/28/19 03:43 04/28/19 03:43 ABG, PT/INR, D-dimer: ABG POC ABG pH 7.470 (7.35-7.45) H 04/26/19 21:35 POC ABG pCO2 33.7 (35-45) L 04/26/19 21:35 POC ABG pO2 74 (80-105) L 04/26/19 21:35 POC ABG HCO3 24.5 (22-26 mml/L) 04/26/19 21:35 POC ABG Total CO2 26 (23-27mmol/L) 04/26/19 21:35 POC ABG O2 Sat 96 04/26/19 21:35 PT/INR, D-dimer PT 15.1 Sec. (12.2-14.9) H 04/25/19 20:08 INR 1.22 (0.87-1.13) H 04/25/19 20:08 Abnormal lab findings: Abnormal Labs 04/25/19 04/25/19 04/25/19 15:55 15:55 16:00 RBC Hgb 9.4 L Hct 30.9 L MCV 71 L MCH 22 L MCHC 31 L RDW 25.5 H Seg Neuts % (Manual) 72.0 H Lymphocytes % (Manual) Monocytes % (Manual) 8.0 H Basophils % (Manual) 2.0 H Nucleated RBC % Lymphocytes # (Manual) Basophils # (Manual) 0.2 H PT INR 1.17 H Heparin Anti-Xa Level POC ABG pH POC ABG pCO2 POC ABG pO2 Sodium Carbon Dioxide 14 L BUN 8 L Creatinine 0.7 L Glucose 103 H POC Glucose Phosphorus Magnesium Iron Total Bilirubin ALT Total Creatine Kinase CK-MB (CK-2) Troponin T Total Protein Albumin HDL Cholesterol 04/25/19 04/25/19 04/25/19 16:00 18:19 20:08 RBC Hgb 9.3 L Hct 30.3 L MCV MCH MCHC RDW Seg Neuts % (Manual) Lymphocytes % (Manual) Monocytes % (Manual) Basophils % (Manual) Nucleated RBC % Lymphocytes # (Manual) Basophils # (Manual) PT INR Heparin Anti-Xa Level POC ABG pH 7.338 L POC ABG pCO2 30.7 L POC ABG pO2 165 H Sodium Carbon Dioxide BUN Creatinine Glucose POC Glucose Phosphorus Magnesium 1.20 L Iron Total Bilirubin ALT Total Creatine Kinase 196 H CK-MB (CK-2) 5.7 H Troponin T 0.141 H* Total Protein Albumin HDL Cholesterol 66 H 04/25/19 04/26/19 04/26/19 20:08 03:08 03:08 RBC Hgb 8.8 L Hct 27.9 L MCV 70 L MCH 22 L MCHC RDW 24.6 H Seg Neuts % (Manual) 85.0 H Lymphocytes % (Manual) 11.0 L Monocytes % (Manual) Basophils % (Manual) Nucleated RBC % Lymphocytes # (Manual) 1.0 L Basophils # (Manual) PT 15.1 H INR 1.22 H Heparin Anti-Xa Level POC ABG pH POC ABG pCO2 POC ABG pO2 Sodium 136 L Carbon Dioxide 21 L D BUN Creatinine Glucose 148 H POC Glucose Phosphorus Magnesium Iron Total Bilirubin 1.50 H ALT Total Creatine Kinase CK-MB (CK-2) Troponin T Total Protein 8.6 H Albumin 3.5 L HDL Cholesterol 04/26/19 04/26/19 04/26/19 03:08 08:04 14:16 RBC Hgb Hct MCV MCH MCHC RDW Seg Neuts % (Manual) Lymphocytes % (Manual) Monocytes % (Manual) Basophils % (Manual) Nucleated RBC % Lymphocytes # (Manual) Basophils # (Manual) PT INR Heparin Anti-Xa Level < 0.10 L POC ABG pH POC ABG pCO2 POC ABG pO2 Sodium Carbon Dioxide BUN Creatinine Glucose POC Glucose Phosphorus Magnesium 1.50 L Iron Total Bilirubin ALT Total Creatine Kinase 205 H CK-MB (CK-2) Troponin T 0.098 H Total Protein Albumin HDL Cholesterol 04/26/19 04/26/19 04/27/19 21:35 23:25 03:37 RBC Hgb Hct MCV MCH MCHC RDW Seg Neuts % (Manual) Lymphocytes % (Manual) Monocytes % (Manual) Basophils % (Manual) Nucleated RBC % Lymphocytes # (Manual) Basophils # (Manual) PT INR Heparin Anti-Xa Level POC ABG pH 7.470 H POC ABG pCO2 33.7 L POC ABG pO2 74 L Sodium Carbon Dioxide BUN Creatinine Glucose POC Glucose 108 H Phosphorus Magnesium Iron Total Bilirubin ALT Total Creatine Kinase CK-MB (CK-2) Troponin T 0.103 H* Total Protein Albumin HDL Cholesterol 04/27/19 04/27/19 04/27/19 04:18 04:18 19:45 RBC 3.47 L Hgb 7.8 L Hct 24.6 L MCV 71 L MCH 22 L MCHC RDW 25.2 H Seg Neuts % (Manual) 80.0 H Lymphocytes % (Manual) Monocytes % (Manual) Basophils % (Manual) Nucleated RBC % Lymphocytes # (Manual) 0.8 L Basophils # (Manual) PT INR Heparin Anti-Xa Level POC ABG pH POC ABG pCO2 POC ABG pO2 Sodium Carbon Dioxide BUN Creatinine Glucose 102 H POC Glucose 134 H Phosphorus Magnesium Iron Total Bilirubin ALT 6 L Total Creatine Kinase CK-MB (CK-2) Troponin T Total Protein Albumin 3.1 L HDL Cholesterol 04/28/19 04/28/19 03:43 03:43 RBC Hgb 8.3 L Hct 26.7 L MCV 73 L MCH 23 L MCHC 31 L RDW 24.6 H Seg Neuts % (Manual) 74.0 H Lymphocytes % (Manual) Monocytes % (Manual) Basophils % (Manual) Nucleated RBC % 1.0 H Lymphocytes # (Manual) 0.9 L Basophils # (Manual) PT INR Heparin Anti-Xa Level POC ABG pH POC ABG pCO2 POC ABG pO2 Sodium Carbon Dioxide BUN Creatinine Glucose POC Glucose Phosphorus 5.00 H Magnesium Iron 17 L Total Bilirubin ALT 6 L Total Creatine Kinase CK-MB (CK-2) Troponin T Total Protein Albumin 3.0 L HDL Cholesterol Chest x-ray: report reviewed, image reviewed (pulm edema)
--- NOTE | 2019-04-28 17:08 | Progress Note ---
Assessment and Plan Assessment and plan: --Hypertensive emergency; present on admission ,off Tridil drip blood pressures moderate control resume multiple home antihypertensives When necessary hydralazine --Acute systolic congestive heart failure; EF 45-50% anti-failure medications, diuretics, beta blockers, umm inhibitors Input output output monitoring fluid restriction --Non-SETMI; positive troponins/ probably type2 Aspirin and beta blockers and umm inhibitors and nitrates statins off heparin drip, patient had recent negative stress test --Supraventricular tachycardia; sinus rhythm Multiple doses of adenosine, on beta yanick Cardiology consultation --Anemia; hemoglobin 7.8, no external evidence of bleeding Stool for occult blood, iron panel, monitor H&H --Alcohol withdrawal symptoms; continue CIWA protocol DC CIWA, Ativan as needed for agitation, Restraints for safety, 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 when he is more alert --Patient needs alcohol detox/rehabilitation and medically stable --Dyslipidemia; continue statin --Moderate Malnutrition; nutrition supplements, supportive care Nutrition consult if needed --DVT prophylaxis; Lovenox Monitor closely and adjust the management as needed Plan of care reviewed with the patient's nurse Critical care time 32 minutes Disposition; possible discharge in 1-2 days stable History Interval history: Patient seen and examined medical records reviewed Patient is more alert and awake, drowsy due to Librium This finding appropriately, asking for his breakfast Vital signs noted Hospitalist Physical - Constitutional Vitals: Temp Pulse Resp BP Pulse Ox 99.2 F 89 28 H 104/72 100 04/28/19 15:38 04/28/19 16:00 04/28/19 16:00 04/28/19 16:00 04/28/19 16:00 General appearance: Present: no acute distress, well-nourished, other (alert and awake ) - EENT Eyes: Present: PERRL, EOM intact - Neck Neck: Present: supple, normal ROM - Respiratory Respiratory effort: normal Respiratory: bilateral: diminished, negative: rales, rhonchi, wheezing - Cardiovascular Rhythm: regular Heart Sounds: Present: S1 & S2 - Extremities Extremities: no ischemia, No edema - Abdominal General gastrointestinal: soft, non-tender, non-distended, normal bowel sounds - Integumentary Integumentary: Present: clear, warm - Psychiatric Psychiatric: appropriate mood/affect, cooperative - Neurologic Neurologic: CNII-XII intact, moves all extremities Results - Labs CBC & Chem 7: 04/28/19 03:43 04/28/19 03:43 Labs: Laboratory Last Values WBC 5.2 K/mm3 (4.5-11.0) 04/28/19 03:43 RBC 3.69 M/mm3 (3.65-5.03) 04/28/19 03:43 Hgb 8.3 gm/dl (11.8-15.2) L 04/28/19 03:43 Hct 26.7 % (35.5-45.6) L 04/28/19 03:43 MCV 73 fl (84-94) L 04/28/19 03:43 MCH 23 pg (28-32) L 04/28/19 03:43 MCHC 31 % (32-34) L 04/28/19 03:43 RDW 24.6 % (13.2-15.2) H 04/28/19 03:43 Plt Count 226 K/mm3 (140-440) 04/28/19 03:43 Lymph % (Auto) [place] [employer] 04/25/19 15:55 [place] % (Auto) [employer] 04/25/19 15:55 Eos % (Auto) [employer] 04/25/19 15:55 Baso % (Auto) [employer] 04/25/19 15:55 Lymph # [employer] 04/25/19 15:55 [place] # [employer] 04/25/19 15:55 Eos # [employer] 04/25/19 15:55 Baso # [employer] 04/25/19 15:55 Add Manual Diff Complete 04/28/19 03:43 Total Counted 100 04/28/19 03:43 Seg Neutrophils % [employer] 04/25/19 15:55 Seg Neuts % (Manual) 74.0 % (40.0-70.0) H 04/28/19 03:43 0 % 04/28/19 03:43 17.0 % (13.4-35.0) 04/28/19 03:43 Reactive Lymphs % (Man) 0 % 04/28/19 03:43 5.0 % (0.0-7.3) 04/28/19 03:43 4.0 % (0.0-4.3) 04/28/19 03:43 0 % (0.0-1.8) 04/28/19 03:43 0 % 04/28/19 03:43 0 % 04/28/19 03:43 0 % 04/28/19 03:43 0 % 04/28/19 03:43 Nucleated RBC % 1.0 % (0.0-0.9) H 04/28/19 03:43 Seg Neutrophils # [employer] 04/25/19 15:55 Seg Neutrophils # Man 3.8 K/mm3 (1.8-7.7) 04/28/19 03:43 Band Neutrophils # 0.0 K/mm3 04/28/19 03:43 0.9 K/mm3 (1.2-5.4) L 04/28/19 03:43 Abs React Lymphs (Man) 0.0 K/mm3 04/28/19 03:43 0.3 K/mm3 (0.0-0.8) 04/28/19 03:43 0.2 K/mm3 (0.0-0.4) 04/28/19 03:43 0.0 K/mm3 (0.0-0.1) 04/28/19 03:43 0.0 K/mm3 04/28/19 03:43 0.0 K/mm3 04/28/19 03:43 0.0 K/mm3 04/28/19 03:43 Blast Cells # 0.0 K/mm3 04/28/19 03:43 WBC Morphology Not Reportable 04/28/19 03:43 Hypersegmented Neuts Not Reportable 04/28/19 03:43 Hyposegmented Neuts Not Reportable 04/28/19 03:43 Hypogranular Neuts Not Reportable 04/28/19 03:43 Not Reportable 04/28/19 03:43 Not Reportable 04/28/19 03:43 Not Reportable 04/28/19 03:43 Not Reportable 04/28/19 03:43 Not Reportable 04/28/19 03:43 Not Reportable 04/28/19 03:43 Cons 04/28/19 03:43 Not Reportable 04/28/19 03:43 Plt Clumps, EDTA Not Reportable 04/28/19 03:43 Rare 04/28/19 03:43 Rare 04/28/19 03:43 Not Reportable 04/28/19 03:43 Plt Morphology Comment Not Reportable 04/28/19 03:43 RBC Morphology Not Reportable 04/28/19 03:43 Dimorphic RBCs Not Reportable 04/28/19 03:43 Not Reportable 04/28/19 03:43 2+ 04/28/19 03:43 Few 04/28/19 03:43 1+ 04/28/19 03:43 Not Reportable 04/28/19 03:43 Not Reportable 04/28/19 03:43 Not Reportable 04/28/19 03:43 Not Reportable 04/28/19 03:43 Not Reportable 04/28/19 03:43 Few 04/28/19 03:43 Not Reportable 04/28/19 03:43 Few 04/28/19 03:43 Not Reportable 04/28/19 03:43 Not Reportable 04/28/19 03:43 Not Reportable 04/28/19 03:43 Not Reportable 04/28/19 03:43 Not Reportable 04/28/19 03:43 Not Reportable 04/28/19 03:43 Few 04/28/19 03:43 Acanthocytes (Spur) Not Reportable 04/28/19 03:43 Rouleaux Not Reportable 04/28/19 03:43 Not Reportable 04/28/19 03:43 Not Reportable 04/28/19 03:43 Not Reportable 04/28/19 03:43 Not Reportable 04/28/19 03:43 Hem Pathologist Commnt No 04/28/19 03:43 PT 15.1 Sec. (12.2-14.9) H 04/25/19 20:08 INR 1.22 (0.87-1.13) H 04/25/19 20:08 APTT 27.3 Sec. (24.2-36.6) 04/25/19 20:08 Heparin Anti-Xa Level < 0.10 U.I./ml (0.3-0.7) L 04/26/19 03:08 POC ABG pH 7.470 (7.35-7.45) H 04/26/19 21:35 POC ABG pCO2 33.7 (35-45) L 04/26/19 21:35 POC ABG pO2 74 (80-105) L 04/26/19 21:35 POC ABG HCO3 24.5 (22-26 mml/L) 04/26/19 21:35 POC ABG Total CO2 26 (23-27mmol/L) 04/26/19 21:35 POC ABG O2 Sat 96 04/26/19 21:35 POC ABG Base Excess 1 ((-2) - (+3)mmol/L) 04/26/19 21:35 45 % 04/26/19 21:35 Sodium 137 mmol/L (137-145) 04/28/19 03:43 Potassium 4.0 mmol/L (3.6-5.0) 04/28/19 03:43 Chloride 99.9 mmol/L (98-107) 04/28/19 03:43 Carbon Dioxide 28 mmol/L (22-30) 04/28/19 03:43 13 mmol/L 04/28/19 03:43 BUN 17 mg/dL (9-20) 04/28/19 03:43 1.4 mg/dL (0.8-1.5) 04/28/19 03:43 Estimated GFR > 60 ml/min 04/28/19 03:43 12 % 04/28/19 03:43 Glucose 99 mg/dL (75-100) 04/28/19 03:43 POC Glucose 134 (70-105) H 04/27/19 19:45 5.8 % (4-6) 04/25/19 20:08 Calcium 8.9 mg/dL (8.4-10.2) 04/28/19 03:43 Phosphorus 5.00 mg/dL (2.5-4.5) H 04/28/19 03:43 Magnesium 1.80 mg/dL (1.7-2.3) 04/28/19 03:43 Iron 17 ug/dL (49-181) L 04/28/19 03:43 TIBC 316 mcg/dL (250-450) 04/28/19 03:43 % Saturation 5.38 % 04/28/19 03:43 270 mg/dl (180-329) 04/28/19 03:43 0.70 mg/dL (0.1-1.2) 04/28/19 03:43 AST 19 units/L (5-40) 04/28/19 03:43 ALT 6 units/L (7-56) L 04/28/19 03:43 87 units/L (35-129) 04/28/19 03:43 205 units/L (55-170) H 04/26/19 08:04 CK-MB (CK-2) 3.5 ng/mL (0.0-4.0) 04/26/19 08:04 CK-MB (CK-2) Rel Index 1.7 (0-4) 04/26/19 08:04 0.103 ng/mL (0.00-0.029) H* 04/26/19 23:25 7.5 g/dL (6.3-8.2) 04/28/19 03:43 3.0 g/dL (3.9-5) L 04/28/19 03:43 0.7 % 04/28/19 03:43 Triglycerides 71 mg/dL (2-149) 04/25/19 16:00 Cholesterol 178 mg/dL (50-199) 04/25/19 16:00 104 mg/dL (50-130) 04/25/19 16:00 66 mg/dL (40-59) H 04/25/19 16:00 2.69 % 04/25/19 16:00 TSH 3.220 mlU/mL (0.270-4.200) 04/25/19 16:00 Free T4 0.91 ng/dL (0.76-1.46) 04/25/19 16:00 Yellow (Yellow) 04/25/19 16:00 Clear (Clear) 04/25/19 16:00 5.0 (5.0-7.0) 04/25/19 16:00 Ur Specific [place] 1.013 (1.003-1.030) 04/25/19 16:00 >500 mg/dL (Negative) 04/25/19 16:00 Neg mg/dL (Negative) 04/25/19 16:00 Tr mg/dL (Negative) 04/25/19 16:00 Sm (Negative) 04/25/19 16:00 Neg (Negative) 04/25/19 16:00 Neg (Negative) 04/25/19 16:00 < 2.0 mg/dL (<2.0) 04/25/19 16:00 Ur Leukocyte Esterase Neg (Negative) 04/25/19 16:00 2.0 /HPF (0.0-6.0) 04/25/19 16:00 1.0 /HPF (0.0-6.0) 04/25/19 16:00 U Epithel Cells (Auto) < 1.0 /HPF (0-13.0) 04/25/19 16:00 Few /HPF 04/25/19 16:00 Active Medications - Current Medications Current Medications: Generic Name Dose Route Start Last Admin Trade Name Freq PRN Reason Stop Dose Admin Acetaminophen 650 mg 04/25/19 18:59 Tylenol PO Q4H PRN Pain MILD(1-3)/Fever >100.5/COSTA Aspirin 81 mg 04/26/19 10:00 04/28/19 09:42 Baby Aspirin PO 81 mg QDAY LARRY Administration Atorvastatin Calcium 40 mg 04/25/19 22:00 04/27/19 22:03 Lipitor PO 40 mg QHS LARRY Administration Carvedilol 25 mg 04/27/19 12:00 04/28/19 09:42 Coreg PO 25 mg BID LARRY Administration Enoxaparin Sodium 40 mg 04/28/19 10:00 04/28/19 09:41 Lovenox SUB-Q 40 mg QDAY@1000 LARRY Administration Folic Acid 1 mg 04/28/19 10:00 04/28/19 09:42 Folvite PO 1 mg QDAY LARRY Administration Furosemide 40 mg 04/26/19 06:00 04/28/19 06:12 Lasix IV 40 mg 0600,1800 LARRY Administration Hydralazine HCl 20 mg 04/27/19 13:00 Apresoline IV Q6H PRN SBP > 160 Hydralazine HCl 50 mg 04/27/19 14:00 04/28/19 14:39 Apresoline PO Not Given Q8HR LARRY Hydromorphone HCl 0.5 mg 04/25/19 18:59 04/26/19 11:10 Dilaudid IV 0.5 mg Q3H PRN Administration Pain , Severe (7-10) Lorazepam 2 mg 04/27/19 11:17 Ativan IV Q2H PRN Agitation Losartan Potassium 100 mg 04/25/19 20:00 04/28/19 09:43 Cozaar PO Not Given QDAY LARRY Ondansetron HCl 4 mg 04/25/19 18:59 04/26/19 21:27 Zofran IV 4 mg Q8H PRN Administration Nausea And Vomiting Pantoprazole Sodium 40 mg 04/28/19 10:00 04/28/19 09:42 Protonix PO 40 mg DAILY LARRY Administration Potassium Chloride 20 meq 04/25/19 20:00 04/28/19 09:51 K-Dur PO 20 meq Q12H LARRY Administration Sodium Chloride 10 ml 04/25/19 22:00 04/28/19 09:44 Sodium Chloride Flush Syringe 10 Ml IV 10 ml BID LARRY Administration Sodium Chloride 10 ml 04/25/19 18:59 04/26/19 20:29 Sodium Chloride Flush Syringe 10 Ml IV 10 ml PRN PRN Administration LINE FLUSH Thiamine HCl 100 mg 04/28/19 10:00 04/28/19 09:42 Vitamin B-1 PO 100 mg QDAY LARRY Administration Nutrition/Malnutrition Assess - Dietary Evaluation Nutrition/Malnutrition Findings: Nutrition Notes Start: 04/26/19 13:59 Freq: Status: Active Protocol: Document 04/28/19 16:10 RM (Rec: 04/28/19 16:17 RM [id number]) Nutrition Notes Initial or Follow up Reassessment Current Diagnosis Diabetes,Hypertension,Heart Failure,Hyperlipidemia Other Pertinent Diagnosis [place], Alcohol withdrawal symptoms Current Diet GI soft Labs/Tests A1c 5.8 Pertinent Medications Lasix Height 5 ft 11 in Weight 85.5 kg [place] Body Weight (kg) 78.18 BMI 26.2 Subjective/Other Information Pt alseep at time of visit. Per nurse pt ate all of his breakfast. Unsure if pt has been drinking Glucerna. Percent of energy/protein needs met: 100%/79% Burn Absent Trauma Absent #1 Nutrition Diagnosis Inadequate oral intake As Evidenced by Signs and Symptoms pt meeting 100% of calorie and 79% of protein needs Diagnosis Progress(for reassessment Resolved documentation) Is patient on ventilator? No Is Patient Ambulatory and/or Out of Bed No REE-([facility]-confined to bed) Calculation Used for Recommendations [facility] Additional Notes Protein Needs: 103-171g (1.2- 2g/kg) Fluid Needs: 1 ml/kcal Nutrition Intervention Change Diet Order: GI soft, Cardiac/Consistent CHO Add Supplement/Snack (indicate name/kcal Was not carried over w/diet /protein ) change. Glucerna 1 daily Provides kCal: 220 Provides Protein (gm) 10 Goal #1 Meet at least 80% of calorie and protein needs via PO and ONS intakes Anticipated Discharge Needs: Cardiac/Consistent CHO diet Follow-Up By: 04/30/19 Additional Comments Follow for PO and ONS intakes, DM diet education
[2019-04-29 04:55] LABS: Basophils % (Auto) 0.4 % (0.0-1.8); Eosinophils # (Auto) 0.1 K/mm3 (0.0-0.4); Eosinophils % (Auto) 1.9 % (0.0-4.3); Hematocrit 31.4 % (35.5-45.6); Hemoglobin 9.8 gm/dl (11.8-15.2); Lymphocytes # (Auto) 1.4 K/mm3 (1.2-5.4); Lymphocytes % (Auto) 22.7 % (13.4-35.0); Mean Corpuscular HGB Conc 31 % (32-34); Mean Corpuscular Volume 73 fl (84-94); Monocytes # (Auto) 0.7 K/mm3 (0.0-0.8); Monocytes % (Auto) 10.4 % (0.0-7.3); Platelet Count 226 K/mm3 (140-440); Red Blood Count 4.33 M/mm3 (3.65-5.03)
[2019-04-29 05:17] LABS: BUN/Creatinine Ratio 17; Blood Urea Nitrogen 22 mg/dL (9-20); Hemolysis Index 7
[2019-04-29] MEDS: SODIUM CHLORIDE FLUSH SYRINGE 10 ML IV SCH ×3 (06:13→22:12)
[2019-04-29] MEDS: LASIX IV SCH ×2 (06:13→18:07)
[2019-04-29] MEDS: APRESOLINE PO SCH ×3 (06:13→22:12)
[2019-04-29] MEDS ORDERED: MAGNESIUM SULFATE 4GM/100ML 4 GM/100 ML BAG IV ONE (09:00)
--- NOTE | 2019-04-29 09:31 | Progress Note ---
Assessment and Plan Assessment and plan: Acute hypoxic respiratory failure -off NIV since 04/27, cont oxygen supplement --Hypertensive emergency; present on admission ,off Tridil drip blood pressures moderate control resume multiple home antihypertensives When necessary hydralazine --Acute systolic congestive heart failure; EF 45-50% anti-failure medications, diuretics, beta blockers, umm inhibitors Input output output monitoring fluid restriction --Type 2 FL Aspirin and beta blockers and umm inhibitors and nitrates statins off heparin drip, patient had recent negative stress test --Supraventricular tachycardia; sinus rhythm Multiple doses of adenosine, on beta yanick Cardiology consultation --Anemia; hemoglobin 7.8, no external evidence of bleeding Stool for occult blood, iron panel, monitor H&H --Alcohol withdrawal symptoms; continue CIWA protocol CIWA, Ativan as needed for agitation, Restraints for safety, counseled on cessation --Patient needs alcohol detox/rehabilitation and medically stable --Dyslipidemia; continue statin --Moderate Malnutrition; nutrition supplements, supportive care Nutrition consult if needed --DVT prophylaxis; Lovenox Monitor closely and adjust the management as needed Plan of care reviewed with the patient's nurse Critical care time 32 minutes Disposition; possible discharge in 1-2 days stable History Interval history: sob is improved RN says he has been less agitated no cp, no syncope, Hospitalist Physical - Physical exam Narrative exam: General appearance: Present: no acute distress, well-nourished, other (alert and awake ) - EENT Eyes: Present: PERRL, EOM intact - Neck Neck: Present: supple, normal ROM - Respiratory Respiratory effort: normal Respiratory: bilateral: diminished, negative: rales, rhonchi, wheezing - Cardiovascular Rhythm: regular Heart Sounds: Present: S1 & S2 - Extremities Extremities: no ischemia, No edema - Abdominal General gastrointestinal: soft, non-tender, non-distended, normal bowel sounds - Integumentary Integumentary: Present: clear, warm - Psychiatric Psychiatric: appropriate mood/affect, cooperative - Neurologic Neurologic: CNII-XII intact, moves all extremities - Constitutional Vitals: Temp Pulse Resp BP Pulse Ox 98.5 F 87 28 H 102/66 95 04/29/19 08:00 04/29/19 08:01 04/29/19 08:01 04/29/19 08:01 04/29/19 08:01 General appearance: Present: no acute distress, well-nourished, other (alert and awake ) Results - Labs CBC & Chem 7: 04/29/19 04:25 04/29/19 04:25 Labs: Laboratory Last Values WBC 6.4 K/mm3 (4.5-11.0) 04/29/19 04:25 RBC 4.33 M/mm3 (3.65-5.03) 04/29/19 04:25 Hgb 9.8 gm/dl (11.8-15.2) L 04/29/19 04:25 Hct 31.4 % (35.5-45.6) L 04/29/19 04:25 MCV 73 fl (84-94) L 04/29/19 04:25 MCH 23 pg (28-32) L 04/29/19 04:25 MCHC 31 % (32-34) L 04/29/19 04:25 RDW 24.0 % (13.2-15.2) H 04/29/19 04:25 Plt Count 226 K/mm3 (140-440) 04/29/19 04:25 Lymph % (Auto) 22.7 % (13.4-35.0) 04/29/19 04:25 [place] % (Auto) 10.4 % (0.0-7.3) H 04/29/19 04:25 Eos % (Auto) 1.9 % (0.0-4.3) 04/29/19 04:25 Baso % (Auto) 0.4 % (0.0-1.8) 04/29/19 04:25 Lymph # 1.4 K/mm3 (1.2-5.4) 04/29/19 04:25 [place] # 0.7 K/mm3 (0.0-0.8) 04/29/19 04:25 Eos # 0.1 K/mm3 (0.0-0.4) 04/29/19 04:25 Baso # 0.0 K/mm3 (0.0-0.1) 04/29/19 04:25 Add Manual Diff Complete 04/28/19 03:43 Total Counted 100 04/28/19 03:43 Seg Neutrophils % 64.6 % (40.0-70.0) 04/29/19 04:25 Seg Neuts % (Manual) 74.0 % (40.0-70.0) H 04/28/19 03:43 0 % 04/28/19 03:43 17.0 % (13.4-35.0) 04/28/19 03:43 Reactive Lymphs % (Man) 0 % 04/28/19 03:43 5.0 % (0.0-7.3) 04/28/19 03:43 4.0 % (0.0-4.3) 04/28/19 03:43 0 % (0.0-1.8) 04/28/19 03:43 0 % 04/28/19 03:43 0 % 04/28/19 03:43 0 % 04/28/19 03:43 0 % 04/28/19 03:43 Nucleated RBC % 1.0 % (0.0-0.9) H 04/28/19 03:43 Seg Neutrophils # 4.1 K/mm3 (1.8-7.7) 04/29/19 04:25 Seg Neutrophils # Man 3.8 K/mm3 (1.8-7.7) 04/28/19 03:43 Band Neutrophils # 0.0 K/mm3 04/28/19 03:43 0.9 K/mm3 (1.2-5.4) L 04/28/19 03:43 Abs React Lymphs (Man) 0.0 K/mm3 04/28/19 03:43 0.3 K/mm3 (0.0-0.8) 04/28/19 03:43 0.2 K/mm3 (0.0-0.4) 04/28/19 03:43 0.0 K/mm3 (0.0-0.1) 04/28/19 03:43 0.0 K/mm3 04/28/19 03:43 0.0 K/mm3 04/28/19 03:43 0.0 K/mm3 04/28/19 03:43 Blast Cells # 0.0 K/mm3 04/28/19 03:43 WBC Morphology Not Reportable 04/28/19 03:43 Hypersegmented Neuts Not Reportable 04/28/19 03:43 Hyposegmented Neuts Not Reportable 04/28/19 03:43 Hypogranular Neuts Not Reportable 04/28/19 03:43 Not Reportable 04/28/19 03:43 Not Reportable 04/28/19 03:43 Not Reportable 04/28/19 03:43 Not Reportable 04/28/19 03:43 Not Reportable 04/28/19 03:43 Not Reportable 04/28/19 03:43 Cons 04/28/19 03:43 Not Reportable 04/28/19 03:43 Plt Clumps, EDTA Not Reportable 04/28/19 03:43 Rare 04/28/19 03:43 Rare 04/28/19 03:43 Not Reportable 04/28/19 03:43 Plt Morphology Comment Not Reportable 04/28/19 03:43 RBC Morphology Not Reportable 04/28/19 03:43 Dimorphic RBCs Not Reportable 04/28/19 03:43 Not Reportable 04/28/19 03:43 2+ 04/28/19 03:43 Few 04/28/19 03:43 1+ 04/28/19 03:43 Not Reportable 04/28/19 03:43 Not Reportable 04/28/19 03:43 Not Reportable 04/28/19 03:43 Not Reportable 04/28/19 03:43 Not Reportable 04/28/19 03:43 Few 04/28/19 03:43 Not Reportable 04/28/19 03:43 Few 04/28/19 03:43 Not Reportable 04/28/19 03:43 Not Reportable 04/28/19 03:43 Not Reportable 04/28/19 03:43 Not Reportable 04/28/19 03:43 Not Reportable 04/28/19 03:43 Not Reportable 04/28/19 03:43 Few 04/28/19 03:43 Acanthocytes (Spur) Not Reportable 04/28/19 03:43 Rouleaux Not Reportable 04/28/19 03:43 Not Reportable 04/28/19 03:43 Not Reportable 04/28/19 03:43 Not Reportable 04/28/19 03:43 Not Reportable 04/28/19 03:43 Hem Pathologist Commnt No 04/28/19 03:43 PT 15.1 Sec. (12.2-14.9) H 04/25/19 20:08 INR 1.22 (0.87-1.13) H 04/25/19 20:08 APTT 27.3 Sec. (24.2-36.6) 04/25/19 20:08 Heparin Anti-Xa Level < 0.10 U.I./ml (0.3-0.7) L 04/26/19 03:08 POC ABG pH 7.470 (7.35-7.45) H 04/26/19 21:35 POC ABG pCO2 33.7 (35-45) L 04/26/19 21:35 POC ABG pO2 74 (80-105) L 04/26/19 21:35 POC ABG HCO3 24.5 (22-26 mml/L) 04/26/19 21:35 POC ABG Total CO2 26 (23-27mmol/L) 04/26/19 21:35 POC ABG O2 Sat 96 04/26/19 21:35 POC ABG Base Excess 1 ((-2) - (+3)mmol/L) 04/26/19 21:35 45 % 04/26/19 21:35 Sodium 138 mmol/L (137-145) 04/29/19 04:25 Potassium 4.3 mmol/L (3.6-5.0) 04/29/19 04:25 Chloride 99.0 mmol/L (98-107) 04/29/19 04:25 Carbon Dioxide 27 mmol/L (22-30) 04/29/19 04:25 16 mmol/L 04/29/19 04:25 BUN 22 mg/dL (9-20) H 04/29/19 04:25 1.3 mg/dL (0.8-1.5) 04/29/19 04:25 Estimated GFR > 60 ml/min 04/29/19 04:25 17 % 04/29/19 04:25 Glucose 119 mg/dL (75-100) H 04/29/19 04:25 POC Glucose 134 (70-105) H 04/27/19 19:45 5.8 % (4-6) 04/25/19 20:08 Calcium 9.0 mg/dL (8.4-10.2) 04/29/19 04:25 Phosphorus 4.20 mg/dL (2.5-4.5) 04/29/19 04:25 Magnesium 1.70 mg/dL (1.7-2.3) 04/29/19 04:25 Iron 17 ug/dL (49-181) L 04/28/19 03:43 TIBC 316 mcg/dL (250-450) 04/28/19 03:43 % Saturation 5.38 % 04/28/19 03:43 270 mg/dl (180-329) 04/28/19 03:43 0.70 mg/dL (0.1-1.2) 04/28/19 03:43 AST 19 units/L (5-40) 04/28/19 03:43 ALT 6 units/L (7-56) L 04/28/19 03:43 87 units/L (35-129) 04/28/19 03:43 205 units/L (55-170) H 04/26/19 08:04 CK-MB (CK-2) 3.5 ng/mL (0.0-4.0) 04/26/19 08:04 CK-MB (CK-2) Rel Index 1.7 (0-4) 04/26/19 08:04 0.103 ng/mL (0.00-0.029) H* 04/26/19 23:25 7.5 g/dL (6.3-8.2) 04/28/19 03:43 3.0 g/dL (3.9-5) L 04/28/19 03:43 0.7 % 04/28/19 03:43 Triglycerides 71 mg/dL (2-149) 04/25/19 16:00 Cholesterol 178 mg/dL (50-199) 04/25/19 16:00 104 mg/dL (50-130) 04/25/19 16:00 66 mg/dL (40-59) H 04/25/19 16:00 2.69 % 04/25/19 16:00 TSH 3.220 mlU/mL (0.270-4.200) 04/25/19 16:00 Free T4 0.91 ng/dL (0.76-1.46) 04/25/19 16:00 Yellow (Yellow) 04/25/19 16:00 Clear (Clear) 04/25/19 16:00 5.0 (5.0-7.0) 04/25/19 16:00 Ur Specific [place] 1.013 (1.003-1.030) 04/25/19 16:00 >500 mg/dL (Negative) 04/25/19 16:00 Neg mg/dL (Negative) 04/25/19 16:00 Tr mg/dL (Negative) 04/25/19 16:00 Sm (Negative) 04/25/19 16:00 Neg (Negative) 04/25/19 16:00 Neg (Negative) 04/25/19 16:00 < 2.0 mg/dL (<2.0) 04/25/19 16:00 Ur Leukocyte Esterase Neg (Negative) 04/25/19 16:00 2.0 /HPF (0.0-6.0) 04/25/19 16:00 1.0 /HPF (0.0-6.0) 04/25/19 16:00 U Epithel Cells (Auto) < 1.0 /HPF (0-13.0) 04/25/19 16:00 Few /HPF 04/25/19 16:00 Active Medications - Current Medications Current Medications: Generic Name Dose Route Start Last Admin Trade Name Freq PRN Reason Stop Dose Admin Acetaminophen 650 mg 04/25/19 18:59 Tylenol PO Q4H PRN Pain MILD(1-3)/Fever >100.5/COSTA Aspirin 81 mg 04/26/19 10:00 04/28/19 09:42 Baby Aspirin PO 81 mg QDAY LARRY Administration Atorvastatin Calcium 40 mg 04/25/19 22:00 04/28/19 21:07 Lipitor PO 40 mg QHS LARRY Administration Carvedilol 25 mg 04/27/19 12:00 04/28/19 21:07 Coreg PO 25 mg BID LARRY Administration Enoxaparin Sodium 40 mg 04/28/19 10:00 04/28/19 09:41 Lovenox SUB-Q 40 mg QDAY@1000 LARRY Administration Folic Acid 1 mg 04/28/19 10:00 04/28/19 09:42 Folvite PO 1 mg QDAY LARRY Administration Furosemide 40 mg 04/26/19 06:00 04/29/19 06:13 Lasix IV 40 mg 0600,1800 LARRY Administration Hydralazine HCl 20 mg 04/27/19 13:00 Apresoline IV Q6H PRN SBP > 160 Hydralazine HCl 50 mg 04/27/19 14:00 04/29/19 06:13 Apresoline PO Not Given Q8HR LARRY Hydromorphone HCl 0.5 mg 04/25/19 18:59 04/26/19 11:10 Dilaudid IV 0.5 mg Q3H PRN Administration Pain , Severe (7-10) Magnesium Sulfate 4 gm in 100 mls @ 25 mls/hr 04/29/19 09:00 Magnesium Sulfate 4gm/100ml IV 04/29/19 12:59 ONCE ONE Lorazepam 2 mg 04/27/19 11:17 Ativan IV Q2H PRN Agitation Losartan Potassium 100 mg 04/25/19 20:00 04/28/19 09:43 Cozaar PO Not Given QDAY LARRY Ondansetron HCl 4 mg 04/25/19 18:59 04/26/19 21:27 Zofran IV 4 mg Q8H PRN Administration Nausea And Vomiting Pantoprazole Sodium 40 mg 04/28/19 10:00 04/28/19 09:42 Protonix PO 40 mg DAILY LARRY Administration Potassium Chloride 20 meq 04/25/19 20:00 04/28/19 21:07 K-Dur PO 20 meq Q12H LARRY Administration Sodium Chloride 10 ml 04/25/19 22:00 04/29/19 06:13 Sodium Chloride Flush Syringe 10 Ml IV 10 ml BID LARRY Administration Sodium Chloride 10 ml 04/25/19 18:59 04/26/19 20:29 Sodium Chloride Flush Syringe 10 Ml IV 10 ml PRN PRN Administration LINE FLUSH Thiamine HCl 100 mg 04/28/19 10:00 04/28/19 09:42 Vitamin B-1 PO 100 mg QDAY LARRY Administration Nutrition/Malnutrition Assess - Dietary Evaluation Nutrition/Malnutrition Findings: Nutrition Notes Start: 04/26/19 13:59 Freq: Status: Active Protocol: Document 04/28/19 16:10 RM (Rec: 04/28/19 16:17 [id number]) Nutrition Notes Initial or Follow up Reassessment Current Diagnosis Diabetes,Hypertension,Heart Failure,Hyperlipidemia Other Pertinent Diagnosis FL, Alcohol withdrawal symptoms Current Diet GI soft Labs/Tests A1c 5.8 Pertinent Medications Lasix Height 5 ft 11 in Weight 85.5 kg [place] Body Weight (kg) 78.18 BMI 26.2 Subjective/Other Information Pt alseep at time of visit. Per nurse pt ate all of his breakfast. Unsure if pt has been drinking Glucerna. Percent of energy/protein needs met: 100%/79% Burn Absent Trauma Absent #1 Nutrition Diagnosis Inadequate oral intake As Evidenced by Signs and Symptoms pt meeting 100% of calorie and 79% of protein needs Diagnosis Progress(for reassessment Resolved documentation) Is patient on ventilator? No Is Patient Ambulatory and/or Out of Bed No REE-([facility]-confined to bed) 2034.188 Calculation Used for Recommendations [facility] Additional Notes Protein Needs: 103-171g (1.2- 2g/kg) Fluid Needs: 1 ml/kcal Nutrition Intervention Change Diet Order: GI soft, Cardiac/Consistent CHO Add Supplement/Snack (indicate name/kcal Was not carried over w/diet /protein ) change. Glucerna 1 daily Provides kCal: 220 Provides Protein (gm) 10 Goal #1 Meet at least 80% of calorie and protein needs via PO and ONS intakes Anticipated Discharge Needs: Cardiac/Consistent CHO diet Follow-Up By: 04/30/19 Additional Comments Follow for PO and ONS intakes, DM diet education
[2019-04-29] MEDS: BABY ASPIRIN PO SCH (10:04)
[2019-04-29] MEDS: LOVENOX SUB-Q SCH (10:04)
[2019-04-29] MEDS: FOLVITE PO SCH (10:04)
[2019-04-29] MEDS: VITAMIN B-1 PO SCH (10:04)
[2019-04-29] MEDS: PROTONIX PO SCH (10:04)
[2019-04-29] MEDS: COREG PO SCH ×2 (10:05→22:13)
[2019-04-29] MEDS: COZAAR PO SCH (10:05)
[2019-04-29] MEDS: K-DUR PO SCH ×2 (10:12→21:23)
[2019-04-29] MEDS: DILAUDID IV PRN ×2 (10:48→22:14)
--- NOTE | 2019-04-29 13:12 | Progress Note ---
Assessment and Plan Imp: 1. NICMP, ? EtOH-related 2. A/C systolic CHF -> due to medical noncompliance and EtOH abuse 3. Acute respiratory failure, hypoxia 2/2 above 4. DTs 5. Chronic EtOH abuse Rec: 1. Lasix can be changed to PO 2. BP optimization 3. Off scheduled Benzos 4. Aspiration precautions/HOB elevation 5. D/c O2 if sats > or equal to 90% 6. DVT PPx 7. Mag repleted to keep > 2.0 8. PT eval./OOB 9. Can go to floor [id number] Plan of care reviewed with patient/family, they understand/agree Subjective Date of service: 04/29/19 Principal diagnosis: hf; HTN; ams Interval history: No events. On 2L NC. No complaints. Alert and appropriate. Active Medications Acetaminophen (Tylenol) 650 mg PO Q4H PRN PRN Reason: Pain MILD(1-3)/Fever >100.5/COSTA Aspirin (Baby Aspirin) 81 mg PO QDAY [facility] Last Admin: 04/29/19 10:04 Dose: 81 mg Documented by: Atorvastatin Calcium (Lipitor) 40 mg PO QHS [facility] Last Admin: 04/28/19 21:07 Dose: 40 mg Documented by: Carvedilol (Coreg) 25 mg PO BID [facility] Last Admin: 04/29/19 10:05 Dose: Not Given Documented by: Enoxaparin Sodium (Lovenox) 40 mg SUB-Q QDAY@1000 [facility] Last Admin: 04/29/19 10:04 Dose: 40 mg Documented by: Folic Acid (Folvite) 1 mg PO QDAY [facility] Last Admin: 04/29/19 10:04 Dose: 1 mg Documented by: Furosemide (Lasix) 40 mg IV 0600,1800 [facility] Last Admin: 04/29/19 06:13 Dose: 40 mg Documented by: Hydralazine HCl (Apresoline) 20 mg IV Q6H PRN PRN Reason: SBP > 160 Hydralazine HCl (Apresoline) 50 mg PO Q8HR [facility] Last Admin: 04/29/19 06:13 Dose: Not Given Documented by: Hydromorphone HCl (Dilaudid) 0.5 mg IV Q3H PRN PRN Reason: Pain , Severe (7-10) Last Admin: 04/29/19 10:48 Dose: 0.5 mg Documented by: Lorazepam (Ativan) 2 mg IV Q2H PRN PRN Reason: Agitation Losartan Potassium (Cozaar) 100 mg PO QDAY [facility] Last Admin: 04/29/19 10:05 Dose: Not Given Documented by: Ondansetron HCl (Zofran) 4 mg IV Q8H PRN PRN Reason: Nausea And Vomiting Last Admin: 04/26/19 21:27 Dose: 4 mg Documented by: Pantoprazole Sodium (Protonix) 40 mg PO DAILY [facility] Last Admin: 04/29/19 10:04 Dose: 40 mg Documented by: Potassium Chloride (K-Dur) 20 meq PO Q12H [facility] Last Admin: 04/29/19 10:12 Dose: 20 meq Documented by: Sodium Chloride (Sodium Chloride Flush Syringe 10 Ml) 10 ml IV BID [facility] Last Admin: 04/29/19 10:08 Dose: 10 ml Documented by: Sodium Chloride (Sodium Chloride Flush Syringe 10 Ml) 10 ml IV PRN PRN PRN Reason: LINE FLUSH Last Admin: 04/26/19 20:29 Dose: 10 ml Documented by: Thiamine HCl (Vitamin B-1) 100 mg PO QDAY [facility] Last Admin: 04/29/19 10:04 Dose: 100 mg Documented by: Objective Vital Signs - 12hr 04/29/19 04/29/19 04/29/19 01:30 02:00 02:30 Temperature Pulse Rate 88 87 89 Pulse Rate [ From Monitor] Respiratory 32 H 28 H 32 H Rate Blood Pressure 102/69 112/73 105/75 O2 Sat by Pulse 92 98 97 Oximetry 04/29/19 04/29/19 04/29/19 03:00 03:31 04:00 Temperature 98.6 F Pulse Rate 89 89 89 Pulse Rate [ 89 From Monitor] Respiratory 18 21 33 H Rate Blood Pressure 108/79 108/79 113/76 O2 Sat by Pulse 95 100 Oximetry 04/29/19 04/29/19 04/29/19 04:30 05:00 05:30 Temperature Pulse Rate 90 88 88 Pulse Rate [ From Monitor] Respiratory 34 H 31 H 30 H Rate Blood Pressure 109/73 99/72 106/74 O2 Sat by Pulse 100 100 100 Oximetry 04/29/19 04/29/19 04/29/19 06:01 06:13 06:30 Temperature Pulse Rate 89 88 88 Pulse Rate [ From Monitor] Respiratory 28 H 29 H Rate Blood Pressure 99/68 99/68 106/76 O2 Sat by Pulse 100 96 Oximetry 04/29/19 04/29/19 04/29/19 07:00 07:30 07:32 Temperature Pulse Rate 85 87 Pulse Rate [ From Monitor] Respiratory 18 27 H Rate Blood Pressure 104/73 106/77 O2 Sat by Pulse 100 100 100 Oximetry 04/29/19 04/29/19 04/29/19 08:00 08:01 08:30 Temperature 98.5 F Pulse Rate 90 87 89 Pulse Rate [ 87 From Monitor] Respiratory 28 H 28 H 17 Rate Blood Pressure 102/66 109/77 O2 Sat by Pulse 95 95 92 Oximetry 04/29/19 04/29/19 04/29/19 09:00 09:30 10:00 Temperature Pulse Rate 89 86 87 Pulse Rate [ From Monitor] Respiratory 21 25 H 32 H Rate Blood Pressure 110/72 104/72 97/68 O2 Sat by Pulse 100 96 95 Oximetry 04/29/19 04/29/19 04/29/19 10:05 10:30 11:00 Temperature Pulse Rate 86 87 83 Pulse Rate [ From Monitor] Respiratory 20 14 Rate Blood Pressure 97/68 103/67 98/66 O2 Sat by Pulse 92 100 Oximetry 04/29/19 04/29/19 11:30 12:00 Temperature Pulse Rate 84 82 Pulse Rate [ 82 From Monitor] Respiratory 20 20 Rate Blood Pressure 94/62 94/66 O2 Sat by Pulse 100 100 Oximetry Constitutional: no acute distress Eyes: non-icteric ENT: oropharynx moist Neck: supple Effort: normal Ascultation: Bilateral: clear Cardiovascular: regular rate and rhythm (no mrg) Gastrointestinal: normoactive bowel sounds, soft, non-tender, non-distended Integumentary: normal Extremities: no cyanosis, no edema, pink and warm Neurologic: normal mental status, non-focal exam, pupils equal and round, CN II- XII normal Psychiatric: mood appropriate, affect normal CBC and BMP: 04/29/19 04:25 04/29/19 04:25 ABG, PT/INR, D-dimer: ABG POC ABG pH 7.470 (7.35-7.45) H 04/26/19 21:35 POC ABG pCO2 33.7 (35-45) L 04/26/19 21:35 POC ABG pO2 74 (80-105) L 04/26/19 21:35 POC ABG HCO3 24.5 (22-26 mml/L) 04/26/19 21:35 POC ABG Total CO2 26 (23-27mmol/L) 04/26/19 21:35 POC ABG O2 Sat 96 04/26/19 21:35 PT/INR, D-dimer PT 15.1 Sec. (12.2-14.9) H 04/25/19 20:08 INR 1.22 (0.87-1.13) H 04/25/19 20:08 Abnormal lab findings: Abnormal Labs 04/25/19 04/25/19 04/25/19 15:55 15:55 16:00 RBC Hgb 9.4 L Hct 30.9 L MCV 71 L MCH 22 L MCHC 31 L RDW 25.5 H [place] % (Auto) Seg Neuts % (Manual) 72.0 H Lymphocytes % (Manual) Monocytes % (Manual) 8.0 H Basophils % (Manual) 2.0 H Nucleated RBC % Lymphocytes # (Manual) Basophils # (Manual) 0.2 H PT INR 1.17 H Heparin Anti-Xa Level POC ABG pH POC ABG pCO2 POC ABG pO2 Sodium Carbon Dioxide 14 L BUN 8 L Creatinine 0.7 L Glucose 103 H POC Glucose Phosphorus Magnesium Iron Total Bilirubin ALT Total Creatine Kinase CK-MB (CK-2) Troponin T Total Protein Albumin HDL Cholesterol 04/25/19 04/25/19 04/25/19 16:00 18:19 20:08 RBC Hgb 9.3 L Hct 30.3 L MCV MCH MCHC RDW [place] % (Auto) Seg Neuts % (Manual) Lymphocytes % (Manual) Monocytes % (Manual) Basophils % (Manual) Nucleated RBC % Lymphocytes # (Manual) Basophils # (Manual) PT INR Heparin Anti-Xa Level POC ABG pH 7.338 L POC ABG pCO2 30.7 L POC ABG pO2 165 H Sodium Carbon Dioxide BUN Creatinine Glucose POC Glucose Phosphorus Magnesium 1.20 L Iron Total Bilirubin ALT Total Creatine Kinase 196 H CK-MB (CK-2) 5.7 H Troponin T 0.141 H* Total Protein Albumin HDL Cholesterol 66 H 04/25/19 04/26/19 04/26/19 20:08 03:08 03:08 RBC Hgb 8.8 L Hct 27.9 L MCV 70 L MCH 22 L MCHC RDW 24.6 H [place] % (Auto) Seg Neuts % (Manual) 85.0 H Lymphocytes % (Manual) 11.0 L Monocytes % (Manual) Basophils % (Manual) Nucleated RBC % Lymphocytes # (Manual) 1.0 L Basophils # (Manual) PT 15.1 H INR 1.22 H Heparin Anti-Xa Level POC ABG pH POC ABG pCO2 POC ABG pO2 Sodium 136 L Carbon Dioxide 21 L D BUN Creatinine Glucose 148 H POC Glucose Phosphorus Magnesium Iron Total Bilirubin 1.50 H ALT Total Creatine Kinase CK-MB (CK-2) Troponin T Total Protein 8.6 H Albumin 3.5 L HDL Cholesterol 04/26/19 04/26/19 04/26/19 03:08 08:04 14:16 RBC Hgb Hct MCV MCH MCHC RDW [place] % (Auto) Seg Neuts % (Manual) Lymphocytes % (Manual) Monocytes % (Manual) Basophils % (Manual) Nucleated RBC % Lymphocytes # (Manual) Basophils # (Manual) PT INR Heparin Anti-Xa Level < 0.10 L POC ABG pH POC ABG pCO2 POC ABG pO2 Sodium Carbon Dioxide BUN Creatinine Glucose POC Glucose Phosphorus Magnesium 1.50 L Iron Total Bilirubin ALT Total Creatine Kinase 205 H CK-MB (CK-2) Troponin T 0.098 H Total Protein Albumin HDL Cholesterol 04/26/19 04/26/19 04/27/19 21:35 23:25 03:37 RBC Hgb Hct MCV MCH MCHC RDW [place] % (Auto) Seg Neuts % (Manual) Lymphocytes % (Manual) Monocytes % (Manual) Basophils % (Manual) Nucleated RBC % Lymphocytes # (Manual) Basophils # (Manual) PT INR Heparin Anti-Xa Level POC ABG pH 7.470 H POC ABG pCO2 33.7 L POC ABG pO2 74 L Sodium Carbon Dioxide BUN Creatinine Glucose POC Glucose 108 H Phosphorus Magnesium Iron Total Bilirubin ALT Total Creatine Kinase CK-MB (CK-2) Troponin T 0.103 H* Total Protein Albumin HDL Cholesterol 04/27/19 04/27/19 04/27/19 04:18 04:18 19:45 RBC 3.47 L Hgb 7.8 L Hct 24.6 L MCV 71 L MCH 22 L MCHC RDW 25.2 H [place] % (Auto) Seg Neuts % (Manual) 80.0 H Lymphocytes % (Manual) Monocytes % (Manual) Basophils % (Manual) Nucleated RBC % Lymphocytes # (Manual) 0.8 L Basophils # (Manual) PT INR Heparin Anti-Xa Level POC ABG pH POC ABG pCO2 POC ABG pO2 Sodium Carbon Dioxide BUN Creatinine Glucose 102 H POC Glucose 134 H Phosphorus Magnesium Iron Total Bilirubin ALT 6 L Total Creatine Kinase CK-MB (CK-2) Troponin T Total Protein Albumin 3.1 L HDL Cholesterol 04/28/19 04/28/19 04/29/19 03:43 03:43 04:25 RBC Hgb 8.3 L 9.8 L Hct 26.7 L 31.4 L MCV 73 L 73 L MCH 23 L 23 L MCHC 31 L 31 L RDW 24.6 H 24.0 H [place] % (Auto) 10.4 H Seg Neuts % (Manual) 74.0 H Lymphocytes % (Manual) Monocytes % (Manual) Basophils % (Manual) Nucleated RBC % 1.0 H Lymphocytes # (Manual) 0.9 L Basophils # (Manual) PT INR Heparin Anti-Xa Level POC ABG pH POC ABG pCO2 POC ABG pO2 Sodium Carbon Dioxide BUN Creatinine Glucose POC Glucose Phosphorus 5.00 H Magnesium Iron 17 L Total Bilirubin ALT 6 L Total Creatine Kinase CK-MB (CK-2) Troponin T Total Protein Albumin 3.0 L HDL Cholesterol 04/29/19 04:25 RBC Hgb Hct MCV MCH MCHC RDW Bowman % (Auto) Seg Neuts % (Manual) Lymphocytes % (Manual) Monocytes % (Manual) Basophils % (Manual) Nucleated RBC % Lymphocytes # (Manual) Basophils # (Manual) PT INR Heparin Anti-Xa Level POC ABG pH POC ABG pCO2 POC ABG pO2 Sodium Carbon Dioxide BUN 22 H Creatinine Glucose 119 H POC Glucose Phosphorus Magnesium Iron Total Bilirubin ALT Total Creatine Kinase CK-MB (CK-2) Troponin T Total Protein Albumin HDL Cholesterol Chest x-ray: report reviewed, image reviewed
--- NOTE | 2019-04-29 15:25 | Progress Note ---
Assessment and Plan Cont present cardiac management. The patient has been seen in conjunction with Dr. Wilkinson who agrees with the assessment and plan of care. - Patient Problems (1) Acute HFrEF (heart failure with reduced ejection fraction) Current Visit: Yes Status: Acute (2) Acute respiratory failure Current Visit: Yes Status: Acute (3) Hypertensive emergency Current Visit: Yes Status: Acute (4) NSTEMI (non-ST elevated myocardial infarction) Current Visit: Yes Status: Acute (5) Anemia Current Visit: Yes Status: Chronic Qualifiers: Anemia type: unspecified type Qualified Code(s): D64.9 - Anemia, unspecified (6) Diabetes Current Visit: Yes Status: Chronic (7) Noncompliance with medication regimen Current Visit: Yes Status: Chronic (8) PFO (patent foramen ovale) Current Visit: Yes Status: Chronic (9) SVT Current Visit: Yes Status: Suspected (10) Hypomagnesemia Current Visit: Yes Status: Acute (11) Altered mental status Current Visit: Yes Status: Acute Subjective Date of service: 04/29/19 Principal diagnosis: hf; HTN; ams Interval history: pt resting in bed, no current cardiac complaints. in SR/ST on telemetry. Objective Last Vital Signs Temp 97.9 F 04/29/19 12:00 Pulse 81 04/29/19 15:05 Resp 22 04/29/19 15:01 BP 99/68 04/29/19 15:05 Pulse Ox 96 04/29/19 15:01 - Physical Examination General: No Apparent Distress HEENT: Positive: PERRL Neck: Positive: neck supple, trachea midline Cardiac: Positive: Reg Rate and Rhythm, S1/S2 Lungs: Positive: Decreased Breath Sounds Neuro: Positive: Grossly Intact Abdomen: Negative: Tender Skin: Negative: Rash Musculoskeletal: No Pain - Labs and Meds CBC 04/29/19 Range/Units 04:25 WBC 6.4 (4.5-11.0) K/mm3 RBC 4.33 (3.65-5.03) M/mm3 Hgb 9.8 L (11.8-15.2) gm/dl Hct 31.4 L (35.5-45.6) % Plt Count 226 (140-440) K/mm3 Lymph # 1.4 (1.2-5.4) K/mm3 [place] # 0.7 (0.0-0.8) K/mm3 Eos # 0.1 (0.0-0.4) K/mm3 Baso # 0.0 (0.0-0.1) K/mm3 Comprehensive Metabolic Panel 04/29/19 Range/Units 04:25 Sodium 138 (137-145) mmol/L Potassium 4.3 (3.6-5.0) mmol/L Chloride 99.0 (98-107) mmol/L Carbon Dioxide 27 (22-30) mmol/L BUN 22 H (9-20) mg/dL Creatinine 1.3 (0.8-1.5) mg/dL Glucose 119 H (75-100) mg/dL Calcium 9.0 (8.4-10.2) mg/dL - Imaging and Cardiology EKG: report reviewed, image reviewed Echo: report reviewed (03/29/2019 showed EF 45-50%, mod LVH, impaired relaxation, RA mild to mod dilated, small patent PFO, RVSP 30mmHg, mild HI.) - EKG Sinus rhythms and dysrhythmias: sinus tachycardia
[2019-04-30] MEDS: APRESOLINE PO SCH ×2 (06:06→14:20)
[2019-04-30] MEDS: LASIX IV SCH ×2 (06:08→18:21)
[2019-04-30] MEDS: DILAUDID IV PRN (07:06)
[2019-04-30] MEDS: BABY ASPIRIN PO SCH (09:22)
[2019-04-30] MEDS: PROTONIX PO SCH (09:22)
[2019-04-30] MEDS: K-DUR PO SCH (09:22)
[2019-04-30] MEDS: VITAMIN B-1 PO SCH (09:22)
[2019-04-30] MEDS: LOVENOX SUB-Q SCH (09:22)
[2019-04-30] MEDS: FOLVITE PO SCH (09:22)
[2019-04-30] MEDS: SODIUM CHLORIDE FLUSH SYRINGE 10 ML IV SCH (09:24)
[2019-04-30] MEDS: COREG PO SCH (09:25)
[2019-04-30] MEDS: COZAAR PO SCH (10:00)
--- NOTE | 2019-04-30 11:11 | Progress Note ---
Assessment and Plan Pt seems slightly confused today - disoriented to place. Further eval/management per primary. Currently stable cardiac status. Pt appears to be nearing/at euvolemia. Pt may discharge from cardiology standpoint. At discharge, recommend conversion of IV lasix to PO lasix 40mg daily. Recommend follow up in our office with Dr. Wilkinson within 3-5 days of hospital discharge ([phone]). The patient has been seen in conjunction with Dr. Wilkinson who agrees with the assessment and plan of care. - Patient Problems (1) Acute HFrEF (heart failure with reduced ejection fraction) Current Visit: Yes Status: Acute (2) Acute respiratory failure Current Visit: Yes Status: Acute (3) Hypertensive emergency Current Visit: Yes Status: Acute (4) NSTEMI (non-ST elevated myocardial infarction) Current Visit: Yes Status: Acute (5) Anemia Current Visit: Yes Status: Chronic Qualifiers: Anemia type: unspecified type Qualified Code(s): D64.9 - Anemia, unspecified (6) Diabetes Current Visit: Yes Status: Chronic (7) Noncompliance with medication regimen Current Visit: Yes Status: Chronic (8) PFO (patent foramen ovale) Current Visit: Yes Status: Chronic (9) SVT Current Visit: Yes Status: Suspected (10) Hypomagnesemia Current Visit: Yes Status: Acute (11) Altered mental status Current Visit: Yes Status: Acute Subjective Date of service: 04/30/19 Principal diagnosis: hf; HTN; ams Interval history: pt resting in bed, no current cardiac complaints. in SR on telemetry. Pt seems slightly confused - disoriented to place. Objective Last Vital Signs Temp 98.6 F 04/30/19 08:10 Pulse 89 04/30/19 09:25 Resp 18 04/30/19 08:10 BP 109/74 04/30/19 09:25 Pulse Ox 99 04/30/19 08:10 - Physical Examination General: No Apparent Distress HEENT: Positive: PERRL Neck: Positive: neck supple, trachea midline Cardiac: Positive: Reg Rate and Rhythm, S1/S2 Lungs: Positive: Decreased Breath Sounds Neuro: Positive: Grossly Intact Abdomen: Negative: Tender Skin: Negative: Rash Musculoskeletal: No Pain - Imaging and Cardiology EKG: report reviewed, image reviewed Echo: report reviewed (03/29/2019 showed EF 45-50%, mod LVH, impaired relaxation, RA mild to mod dilated, small patent PFO, RVSP 30mmHg, mild CA.) - EKG Sinus rhythms and dysrhythmias: sinus tachycardia
--- NOTE | 2019-04-30 11:52 | Progress Note ---
Assessment and Plan Imp: 1. NICMP, ? EtOH-related 2. A/C systolic CHF -> due to medical noncompliance and EtOH abuse 3. Acute respiratory failure, hypoxia 2/2 above 4. DTs 5. Chronic EtOH abuse Rec: 1. Lasix can be changed to PO 2. BP optimization 3. Off scheduled Benzos 4. Aspiration precautions/HOB elevation 5. D/c O2 if sats > or equal to 90% 6. DVT PPx 7. PT eval./OOB 8. Can go home pulm-dahl; f/u in our office PRN, contact information provided to him 9. We will sign off; please call with questions/concerns Plan of care reviewed with patient/family, they understand/agree Subjective Date of service: 04/30/19 Principal diagnosis: hf; HTN; ams Interval history: No events. On RA. No complaints. Alert and appropriate. Active Medications Acetaminophen (Tylenol) 650 mg PO Q4H PRN PRN Reason: Pain MILD(1-3)/Fever >100.5/COSTA Aspirin (Baby Aspirin) 81 mg PO QDAY [facility] Last Admin: 04/30/19 09:22 Dose: 81 mg Documented by: Atorvastatin Calcium (Lipitor) 40 mg PO QHS [facility] Last Admin: 04/29/19 21:23 Dose: 40 mg Documented by: Carvedilol (Coreg) 25 mg PO BID [facility] Last Admin: 04/30/19 09:25 Dose: 25 mg Documented by: Enoxaparin Sodium (Lovenox) 40 mg SUB-Q QDAY@1000 [facility] Last Admin: 04/30/19 09:22 Dose: 40 mg Documented by: Folic Acid (Folvite) 1 mg PO QDAY [facility] Last Admin: 04/30/19 09:22 Dose: 1 mg Documented by: Furosemide (Lasix) 40 mg IV 0600,1800 [facility] Last Admin: 04/30/19 06:08 Dose: 40 mg Documented by: Hydralazine HCl (Apresoline) 20 mg IV Q6H PRN PRN Reason: SBP > 160 Hydralazine HCl (Apresoline) 50 mg PO Q8HR [facility] Last Admin: 04/30/19 06:06 Dose: 50 mg Documented by: Hydromorphone HCl (Dilaudid) 0.5 mg IV Q3H PRN PRN Reason: Pain , Severe (7-10) Last Admin: 04/30/19 07:06 Dose: 0.5 mg Documented by: Lorazepam (Ativan) 2 mg IV Q2H PRN PRN Reason: Agitation Losartan Potassium (Cozaar) 100 mg PO QDAY [facility] Last Admin: 04/29/19 10:05 Dose: Not Given Documented by: Ondansetron HCl (Zofran) 4 mg IV Q8H PRN PRN Reason: Nausea And Vomiting Last Admin: 04/26/19 21:27 Dose: 4 mg Documented by: Pantoprazole Sodium (Protonix) 40 mg PO DAILY [facility] Last Admin: 04/30/19 09:22 Dose: 40 mg Documented by: Potassium Chloride (K-Dur) 20 meq PO Q12H [facility] Last Admin: 04/30/19 09:22 Dose: 20 meq Documented by: Sodium Chloride (Sodium Chloride Flush Syringe 10 Ml) 10 ml IV BID [facility] Last Admin: 04/30/19 09:24 Dose: 10 ml Documented by: Sodium Chloride (Sodium Chloride Flush Syringe 10 Ml) 10 ml IV PRN PRN PRN Reason: LINE FLUSH Last Admin: 04/26/19 20:29 Dose: 10 ml Documented by: Thiamine HCl (Vitamin B-1) 100 mg PO QDAY [facility] Last Admin: 04/30/19 09:22 Dose: 100 mg Documented by: Objective Vital Signs - 12hr 04/30/19 04/30/19 04/30/19 01:34 03:58 06:06 Temperature 98.0 F Pulse Rate 90 90 Respiratory 18 Rate Blood Pressure 117/88 117/88 O2 Sat by Pulse 76 L Oximetry 04/30/19 04/30/19 04/30/19 08:10 09:25 11:49 Temperature 98.6 F 98.0 F Pulse Rate 89 89 89 Respiratory 18 18 Rate Blood Pressure 109/74 109/74 122/85 O2 Sat by Pulse 99 99 Oximetry Constitutional: no acute distress, alert Eyes: non-icteric ENT: oropharynx moist Neck: supple Effort: normal Ascultation: Bilateral: clear Cardiovascular: regular rate and rhythm (no mrg) Gastrointestinal: normoactive bowel sounds, soft, non-tender, non-distended Integumentary: normal Extremities: no cyanosis, no edema, pink and warm Neurologic: normal mental status, non-focal exam, pupils equal and round, CN II- XII normal Psychiatric: mood appropriate, affect normal CBC and BMP: 04/29/19 04:25 04/29/19 04:25 ABG, PT/INR, D-dimer: ABG POC ABG pH 7.470 (7.35-7.45) H 04/26/19 21:35 POC ABG pCO2 33.7 (35-45) L 04/26/19 21:35 POC ABG pO2 74 (80-105) L 04/26/19 21:35 POC ABG HCO3 24.5 (22-26 mml/L) 04/26/19 21:35 POC ABG Total CO2 26 (23-27mmol/L) 04/26/19 21:35 POC ABG O2 Sat 96 04/26/19 21:35 PT/INR, D-dimer PT 15.1 Sec. (12.2-14.9) H 04/25/19 20:08 INR 1.22 (0.87-1.13) H 04/25/19 20:08 Abnormal lab findings: Abnormal Labs 04/25/19 04/25/19 04/25/19 15:55 15:55 16:00 RBC Hgb 9.4 L Hct 30.9 L MCV 71 L MCH 22 L MCHC 31 L RDW 25.5 H [place] % (Auto) Seg Neuts % (Manual) 72.0 H Lymphocytes % (Manual) Monocytes % (Manual) 8.0 H Basophils % (Manual) 2.0 H Nucleated RBC % Lymphocytes # (Manual) Basophils # (Manual) 0.2 H PT INR 1.17 H Heparin Anti-Xa Level POC ABG pH POC ABG pCO2 POC ABG pO2 Sodium Carbon Dioxide 14 L BUN 8 L Creatinine 0.7 L Glucose 103 H POC Glucose Phosphorus Magnesium Iron Total Bilirubin ALT Total Creatine Kinase CK-MB (CK-2) Troponin T Total Protein Albumin HDL Cholesterol 04/25/19 04/25/19 04/25/19 16:00 18:19 20:08 RBC Hgb 9.3 L Hct 30.3 L MCV MCH MCHC RDW [place] % (Auto) Seg Neuts % (Manual) Lymphocytes % (Manual) Monocytes % (Manual) Basophils % (Manual) Nucleated RBC % Lymphocytes # (Manual) Basophils # (Manual) PT INR Heparin Anti-Xa Level POC ABG pH 7.338 L POC ABG pCO2 30.7 L POC ABG pO2 165 H Sodium Carbon Dioxide BUN Creatinine Glucose POC Glucose Phosphorus Magnesium 1.20 L Iron Total Bilirubin ALT Total Creatine Kinase 196 H CK-MB (CK-2) 5.7 H Troponin T 0.141 H* Total Protein Albumin HDL Cholesterol 66 H 04/25/19 04/26/19 04/26/19 20:08 03:08 03:08 RBC Hgb 8.8 L Hct 27.9 L MCV 70 L MCH 22 L MCHC RDW 24.6 H [place] % (Auto) Seg Neuts % (Manual) 85.0 H Lymphocytes % (Manual) 11.0 L Monocytes % (Manual) Basophils % (Manual) Nucleated RBC % Lymphocytes # (Manual) 1.0 L Basophils # (Manual) PT 15.1 H INR 1.22 H Heparin Anti-Xa Level POC ABG pH POC ABG pCO2 POC ABG pO2 Sodium 136 L Carbon Dioxide 21 L D BUN Creatinine Glucose 148 H POC Glucose Phosphorus Magnesium Iron Total Bilirubin 1.50 H ALT Total Creatine Kinase CK-MB (CK-2) Troponin T Total Protein 8.6 H Albumin 3.5 L HDL Cholesterol 04/26/19 04/26/19 04/26/19 03:08 08:04 14:16 RBC Hgb Hct MCV MCH MCHC RDW [place] % (Auto) Seg Neuts % (Manual) Lymphocytes % (Manual) Monocytes % (Manual) Basophils % (Manual) Nucleated RBC % Lymphocytes # (Manual) Basophils # (Manual) PT INR Heparin Anti-Xa Level < 0.10 L POC ABG pH POC ABG pCO2 POC ABG pO2 Sodium Carbon Dioxide BUN Creatinine Glucose POC Glucose Phosphorus Magnesium 1.50 L Iron Total Bilirubin ALT Total Creatine Kinase 205 H CK-MB (CK-2) Troponin T 0.098 H Total Protein Albumin HDL Cholesterol 04/26/19 04/26/19 04/27/19 21:35 23:25 03:37 RBC Hgb Hct MCV MCH MCHC RDW [place] % (Auto) Seg Neuts % (Manual) Lymphocytes % (Manual) Monocytes % (Manual) Basophils % (Manual) Nucleated RBC % Lymphocytes # (Manual) Basophils # (Manual) PT INR Heparin Anti-Xa Level POC ABG pH 7.470 H POC ABG pCO2 33.7 L POC ABG pO2 74 L Sodium Carbon Dioxide BUN Creatinine Glucose POC Glucose 108 H Phosphorus Magnesium Iron Total Bilirubin ALT Total Creatine Kinase CK-MB (CK-2) Troponin T 0.103 H* Total Protein Albumin HDL Cholesterol 04/27/19 04/27/19 04/27/19 04:18 04:18 19:45 RBC 3.47 L Hgb 7.8 L Hct 24.6 L MCV 71 L MCH 22 L MCHC RDW 25.2 H [place] % (Auto) Seg Neuts % (Manual) 80.0 H Lymphocytes % (Manual) Monocytes % (Manual) Basophils % (Manual) Nucleated RBC % Lymphocytes # (Manual) 0.8 L Basophils # (Manual) PT INR Heparin Anti-Xa Level POC ABG pH POC ABG pCO2 POC ABG pO2 Sodium Carbon Dioxide BUN Creatinine Glucose 102 H POC Glucose 134 H Phosphorus Magnesium Iron Total Bilirubin ALT 6 L Total Creatine Kinase CK-MB (CK-2) Troponin T Total Protein Albumin 3.1 L HDL Cholesterol 04/28/19 04/28/19 04/29/19 03:43 03:43 04:25 RBC Hgb 8.3 L 9.8 L Hct 26.7 L 31.4 L MCV 73 L 73 L MCH 23 L 23 L MCHC 31 L 31 L RDW 24.6 H 24.0 H [place] % (Auto) 10.4 H Seg Neuts % (Manual) 74.0 H Lymphocytes % (Manual) Monocytes % (Manual) Basophils % (Manual) Nucleated RBC % 1.0 H Lymphocytes # (Manual) 0.9 L Basophils # (Manual) PT INR Heparin Anti-Xa Level POC ABG pH POC ABG pCO2 POC ABG pO2 Sodium Carbon Dioxide BUN Creatinine Glucose POC Glucose Phosphorus 5.00 H Magnesium Iron 17 L Total Bilirubin ALT 6 L Total Creatine Kinase CK-MB (CK-2) Troponin T Total Protein Albumin 3.0 L HDL Cholesterol 04/29/19 04/29/19 04/29/19 04:25 16:44 21:02 RBC Hgb Hct MCV MCH MCHC RDW [place] % (Auto) Seg Neuts % (Manual) Lymphocytes % (Manual) Monocytes % (Manual) Basophils % (Manual) Nucleated RBC % Lymphocytes # (Manual) Basophils # (Manual) PT INR Heparin Anti-Xa Level POC ABG pH POC ABG pCO2 POC ABG pO2 Sodium Carbon Dioxide BUN 22 H Creatinine Glucose 119 H POC Glucose 159 H 153 H Phosphorus Magnesium Iron Total Bilirubin ALT Total Creatine Kinase CK-MB (CK-2) Troponin T Total Protein Albumin HDL Cholesterol 04/30/19 07:30 RBC Hgb Hct MCV MCH MCHC RDW [place] % (Auto) Seg Neuts % (Manual) Lymphocytes % (Manual) Monocytes % (Manual) Basophils % (Manual) Nucleated RBC % Lymphocytes # (Manual) Basophils # (Manual) PT INR Heparin Anti-Xa Level POC ABG pH POC ABG pCO2 POC ABG pO2 Sodium Carbon Dioxide BUN Creatinine Glucose POC Glucose 126 H Phosphorus Magnesium Iron Total Bilirubin ALT Total Creatine Kinase CK-MB (CK-2) Troponin T Total Protein Albumin HDL Cholesterol Chest x-ray: report reviewed, image reviewed
--- NOTE | 2019-04-30 15:55 | Discharge Summary ---
Providers - Providers Date of Admission: 04/25/19 18:59 Attending physician: LESLIE LAI MD 04/25/19 18:59 Consult to Physician [CONS] Routine Comment: Consulting Provider: REJI DAVIS Physician Instructions: Reason For Exam: CHF/Nstemi 04/26/19 11:40 Consult to Physician [CONS] Routine Comment: Consulting Provider: GERALD SHARPE Physician Instructions: Reason For Exam: ICU admission 04/29/19 13:09 Physical Therapy Evaluation and Treat [CONS] Routine Comment: Reason For Exam: deconditioning [facility] Condition: [facility] Hospital course: 59-year-old man who presents to the hospital with shortness of breath and tachycardia The patient had CHF exacerbation for which she was diureses. He was treated with IV infusion for hypertensive urgency, blood pressure medications were optimized. -He had elevation in troponin which was attributed to type II ID. -Patient also had SVT, for which he was put on medications for rate control. -Patient went into alcohol withdrawal, he was treated with CIWA protocol. -He was initially treated with an IV, then weaned off oxygen as tolerated. -Preventative health counseling performed for 17 minutes -He was counseled on improved diet Diagnosis Acute hypoxic respiratory failure Hypertensive urgency Acute on chronic systolic CHF Type II ID SVT Chronic anemia, due to alcohol abuse Alcohol dependence and withdrawal Moderate malnutrition - Disposition: DC-01 TO HOME OR SELFCARE Time spent for discharge: 33 mins Core Measure Documentation - Palliative Care Palliative Care/ Comfort Measures: Not Applicable - Core Measures Any of the following diagnoses?: heart failure - Heart Failure Discharge Requirements NEETU/ARB for LVSD if EF <40%: Yes Beta yanick at discharge: Yes Exam - Constitutional Vitals: Temp Pulse Resp BP Pulse Ox 98.0 F 89 18 106/68 99 04/30/19 11:49 04/30/19 14:20 04/30/19 11:49 04/30/19 14:20 04/30/19 11:49 General appearance: Present: no acute distress, well-nourished - EENT Eyes: Present: PERRL ENT: hearing intact, clear oral mucosa - Neck Neck: Present: supple, normal ROM - Respiratory Respiratory effort: normal Respiratory: bilateral: CTA - Cardiovascular Heart Sounds: Present: S1 & S2. Absent: rub, click - Extremities Extremities: pulses symmetrical, No edema Peripheral Pulses: within normal limits - Abdominal General gastrointestinal: Present: soft, non-tender, non-distended, normal bowel sounds Male genitourinary: Present: normal - Integumentary Integumentary: Present: clear, warm, dry - Musculoskeletal Musculoskeletal: gait normal, strength equal bilaterally - Psychiatric Psychiatric: appropriate mood/affect, intact judgment & insight - Neurologic Neurologic: CNII-XII intact, moves all extremities Plan Follow up with: [place]O [place] MD JASON [Primary Care Provider] - 3-5 Days Prescriptions: hydrALAZINE [Apresoline TAB] 50 mg PO Q8HR #90 tablet Carvedilol [Coreg] 25 mg PO BID #60 tablet Losartan [Cozaar] 100 mg PO QDAY #60 tablet Folic Acid [Folvite] 1 mg PO QDAY #30 tablet Potassium Chloride [K-Dur] 20 meq PO QDAY #30 tablet Furosemide [Lasix TAB] 40 mg PO DAILY #90 tablet Thiamine [Vitamin B-1] 100 mg PO QDAY #30 tablet
[2019-04-30 16:15] VITALS: BP 119/83
== END 2019-04-30 18:30 | disposition home or self-care (01) | DRG 280 ==
LOC: ED 15:25 → CC1 18:59 → 4A 04-29 16:55
PROVIDERS: ADMIT Internal Medicine; ATTEND Internal Medicine
PROC: 5A09357 Assistance with Respiratory Ventilation, Less than 24 Consecutive Hours, Continuous Positive Airway Pressure (ICD-10-PCS; principal; 2019-04-25)
PROC: 4A033R1 Measurement of Arterial Saturation, Peripheral, Percutaneous Approach (ICD-10-PCS; 2019-04-25)
DX: I21.A1 Myocardial infarction type 2 (principal); J96.01 Acute respiratory failure with hypoxia; I50.43 Acute on chronic combined systolic (congestive) and diastolic (congestive) heart failure; I47.1 Supraventricular tachycardia; I16.1 Hypertensive emergency; Q21.1 Atrial septal defect; I42.6 Alcoholic cardiomyopathy; E44.0 Moderate protein-calorie malnutrition; I11.0 Hypertensive heart disease with heart failure; E78.2 Mixed hyperlipidemia; E11.9 Type 2 diabetes mellitus without complications; F10.10 Alcohol abuse, uncomplicated; Y90.9 Presence of alcohol in blood, level not specified; E83.42 Hypomagnesemia; Z82.49 Family history of ischemic heart disease and other diseases of the circulatory system; Z79.82 Long term (current) use of aspirin; Z79.899 Other long term (current) drug therapy; Z91.14 Patient's other noncompliance with medication regimen; Z68.26 Body mass index [BMI] 26.0-26.9, adult
CPT/HCPCS: 36415; 36600; 71045; 80048; 80053; 80061; 81001; 82550; 82553; 82803; 82962; 83036; 83550; 83735; 84100; 84439; 84443; 84484; 85007; 85014; 85018; 85025; 85049; 85520; 85610; 85730; 93005; 93010; 94760; G0378; A9270-GY; J0153; J0360; J1170; J1644; J1650; J1940; J2060; J2405; J3475